=== PATIENT | male | born 1935 | race Caucasian/White ===

== ENCOUNTER 2018-08-27 13:45 | Inpatient (IN) ==
[2018-08-27] MEDS ORDERED: Pantoprazole Inj 40 MG Vial IV.PUSH ONE (14:13)
--- NOTE | 2018-08-27 14:19 | ED ---
HPI General Chief complaint: Chest Pain Stated complaint: respiratory Time Seen by Provider: 08/27/18 14:04 History of Present Illness HPI narrative: This is an 83-year-old male with history of coronary artery disease, GERD, diabetes, chronic kidney disease, mild COPD, presents for evaluation. He reports that for 1 month he has been having some dyspnea and chest tightness. He reports that symptoms are exertional. He was seen yesterday by his basin cleaner Dr. Quinones where he had a cardiac catheterization which revealed left main, triple-vessel disease. He reports that he had some indigestion and cough which developed last night. He reports over 2 days he has had black stool. He called his basin cleaner today and was sent here for further evaluation. Symptoms are moderate, worse with exertion, no relieving factors. Denies abdominal pain, bright red blood per rectum, nausea or vomiting. He takes aspirin and Brilinta on a daily basis. No other complaints at this time. Related Data Home Medications Medication Instructions Recorded Confirmed albuterol sulfate [ProAir HFA] 2 puff INHALATION Q4-6H PRN 08/26/18 08/27/18 amlodipine 2.5 mg PO DAILY 08/26/18 08/27/18 aspirin 81 mg PO DAILY 08/26/18 08/27/18 isosorbide mononitrate 60 mg PO DAILY 08/26/18 08/27/18 metoprolol tartrate 50 mg PO BID 08/26/18 08/27/18 nitroglycerin 0.4 mg SUBLINGUAL Q5-15M PRN 08/26/18 08/27/18 pantoprazole 40 mg PO DAILY 08/26/18 08/27/18 rosuvastatin 40 mg PO DAILY 08/26/18 08/27/18 tamsulosin 0.8 mg PO DAILY 08/26/18 08/27/18 ticagrelor [Brilinta] 90 mg PO BID 08/26/18 08/27/18 Allergies Allergy/AdvReac Type Severity Reaction Status Date / Time No Known Allergies Allergy Verified 08/27/18 14:04 Review of Systems ROS: all other systems reviewed are negative [facility] Medical History Medical History Anemia (Acute) Franco esophagus (Acute) Basal cell carcinoma (Acute) CAD (coronary artery disease) (Acute) CKD (chronic kidney disease), stage IV (Acute) Cubital tunnel syndrome (Acute) Diabetes (Acute) Enlarged prostate (Acute) GERD (gastroesophageal reflux disease) (Acute) HTN (hypertension) (Acute) History of kidney stones (Acute) History of stroke (Acute) PAD (peripheral artery disease) (Acute) Peripheral neuropathy (Acute) RBBB (Acute) Surgical History Surgical History S/P cardiac cath (Acute) H/O endarterectomy (Acute) History of cataract surgery (Acute) S/P CABG x 5 (Acute) Social History Social History Substance History: No History of Abuse Second Hand Smoke Exposure: No Smoking Status: Former smoker How Often Do You Have a Drink Containing Alcohol: 2 to 4 times a month Recent Travel in [facility] within the Last 8 Weeks: No Recent Out of Country Travel within the Last 8 Weeks: No Immunization History Tetanus Immunization: <5 Years Exam Narrative Exam Narrative: GENERAL: Well-developed well-nourished male no acute distress SKIN: Warm and dry. HEAD: Atraumatic. Normocephalic. EYES: Pupils equal and round. No scleral icterus. No injection or drainage. ENT: No nasal bleeding or discharge. Mucous membranes pink and moist. NECK: Trachea midline. No JVD. CARDIOVASCULAR: Regular rate and rhythm. No murmur appreciated. RESPIRATORY: No accessory muscle use. Clear to auscultation. Breath sounds equal bilaterally. GASTROINTESTINAL: Abdomen soft, non-tender, nondistended. Hepatic and splenic margins not palpable. Rectal examination reveals dark brown Hemoccult positive stool. MUSCULOSKELETAL: No obvious deformities. No clubbing. No cyanosis. No edema. NEUROLOGICAL: Awake and alert. No obvious cranial nerve deficits. Motor grossly within normal limits. Normal speech. PSYCHIATRIC: Appropriate mood and affect; insight and judgment normal. Procedures Hemaprompt Stool Procedural Steps Taken: specimen placed in appropriate test area, developer placed on specimen and control areas and controls appropriately positive and negative Hemaprompt Stool Result: positive Course Initial Documented Vital Signs Temperature 97.2 F L 08/27/18 13:53 Pulse Rate 83 08/27/18 13:53 Respiratory Rate 29 H 08/27/18 13:53 Blood Pressure 144/63 H 08/27/18 13:53 Pulse Oximetry 97 08/27/18 13:53 Last Documented Vital Signs Temperature 97.9 F 08/29/18 04:00 Pulse Rate 60 08/29/18 06:00 Respiratory Rate 16 08/29/18 06:00 Blood Pressure 120/59 L 08/29/18 06:00 Pulse Oximetry 100 08/29/18 06:00 Medical Decision Making REZA Attestation REZA supervised visit: Yes Attestation: I, Dr. Silverio, have reviewed the advance practice practitioner's documentation and am in agreement, met with the patient face to face, made the diagnosis, and the medical decision making was done by me. *My assessment and Findings: Patient is an 83-year-old male, past medical history significant for CKD and coronary artery disease with cardiac cath yesterday which showed triple-vessel disease, who presents with complaint of chest pain. He appears well on arrival but EKG does show deep inverted T waves in the anterior leads which is new and is concerning for acute ischemia versus [facility] (thus he should not have a stress test). Troponin is elevated. Patient does also complain of dark stools and Hemoccult was positive. We spoke with his basin cleaner and it was agreed that heparin should be held at this time. GI has been called but has not called back yet. Patient has been admitted to the resident service for further evaluation and management. MDM Narrative Medical decision making narrative: The patient was placed on ECG monitoring pulse oximetry. A 12-lead EKG was obtained revealing sinus rhythm, T wave inversions noted in the septal, anterior leads, no acute ST elevation. Lab work , chest x-ray ordered. The patient was given nitroglycerin, Protonix. Lab work reviewed, hemoglobin is 9.5 which is decreased from yesterday when it was 9.9. Troponin is elevated at 1.39. BNP is elevated greater than 600. The patient has been chest pain-free during his hospital stay and therefore nitroglycerin was not administered. Discussed with the patient's basin cleaner Dr. Quinones who will consult on the patient. Gastroenterology will also be called in regards to the GI bleed. The patient will be admitted to the resident team. The senior talent management consultant on-call, Dr. Rossi, was paged twice but he never called back. Medical Screen Exam Complete: Yes Emergency Medical Condition: Yes Differential Diagnosis Differential Diagnosis: Unstable angina, acute coronary syndrome, upper GI bleed , symptomatic anemia, pneumonia, pneumothorax, hemothorax Lab Data Result diagrams: 08/29/18 03:54 08/29/18 03:54 Lab Results 08/27/18 08/27/18 08/27/18 Range/Units 14:19 14:19 14:19 WBC 7.6 (4.0-11.0) th/mm3 RBC 2.95 L (4.50-5.90) mil/mm3 Hgb 9.5 L (13.0-17.0) gm/dL Hct 26.6 L (39.0-51.0) % MCV 90.2 (80.0-100.0) fL MCH 32.1 (27.0-34.0) pg MCHC 35.6 (32.0-36.0) % RDW 15.2 (11.6-17.2) % Plt Count 229 (150-450) th/mm3 MPV 7.7 (7.0-11.0) fL Neut % (Auto) 80.3 H (16.0-70.0) % Lymph % (Auto) 10.4 (9.0-44.0) % [place] % (Auto) 6.9 (0.0-8.0) % Eos % (Auto) 1.5 (0.0-4.0) % Baso % (Auto) 0.9 (0.0-2.0) % Neut # (Auto) 6.1 (1.8-7.7) th/mm3 Lymph # (Auto) 0.8 L (1.0-4.8) th/mm3 [place] # (Auto) 0.5 (0.0-0.9) th/mm3 Eos # (Auto) 0.1 (0.0-0.4) th/mm3 Baso # (Auto) 0.1 (0.0-0.2) th/mm3 WBC Differential . Differential Comment Auto diff final PT (9.8-11.6) sec INR Ratio APTT (23.4-31.7) sec Puncture Site Patient Temperature O2 Saturation (90-100) % ABG pH (7.380-7.420) ABG pCO2 (38-42) mmHg ABG pO2 (61-120) mmHG ABG HCO3 (22-26) mmol/L ABG O2 Content (12.0-20.0) Vol % ABG Base Excess (-2-2) mmol/L ABG Methemoglobin (0-2) % Frankie Test Hemoglobin (12.0-16.0) G/DL Carboxyhemoglobin (0-4) % O2 Delivery Device Liter Flow L/M Inspired O2 % Critical Value Sodium 142 (136-145) meq/L Potassium 4.1 (3.5-5.1) meq/L Chloride 106 (98-107) meq/L Carbon Dioxide 27.0 (21.0-32.0) meq/L Anion Gap 9 (5-15) meq/L BUN 29 H (7-18) mg/dL Creatinine 2.11 H (0.60-1.30) mg/dL Estimated GFR 30 L (>89) mL/min POC Glucose (68-110) mg/dl Random Glucose 123 H (74-106) mg/dL Calcium 9.1 (8.5-10.1) mg/dL Magnesium 2.0 (1.5-2.5) mg/dL Total Bilirubin 0.6 (0.2-1.0) mg/dL AST 20 (15-37) U/L ALT 20 (12-78) U/L Alkaline Phosphatase 76 (45-117) U/L Total Creatine Kinase 92 (39-308) U/L Troponin I 1.39 H* (0.02-0.05) ng/mL B-Natriuretic Peptide 680 H (0-100) pg/mL Total Protein 6.7 (6.4-8.2) g/dL Albumin 3.3 L (3.4-5.0) g/dL Blood Type Blood Type Recheck Antibody Screen 08/27/18 08/27/18 08/27/18 Range/Units 14:19 14:19 14:19 WBC (4.0-11.0) th/mm3 RBC (4.50-5.90) mil/mm3 Hgb (13.0-17.0) gm/dL Hct (39.0-51.0) % MCV (80.0-100.0) fL MCH (27.0-34.0) pg MCHC (32.0-36.0) % RDW (11.6-17.2) % Plt Count (150-450) th/mm3 MPV (7.0-11.0) fL Neut % (Auto) (16.0-70.0) % Lymph % (Auto) (9.0-44.0) % [place] % (Auto) (0.0-8.0) % Eos % (Auto) (0.0-4.0) % Baso % (Auto) (0.0-2.0) % Neut # (Auto) (1.8-7.7) th/mm3 Lymph # (Auto) (1.0-4.8) th/mm3 [place] # (Auto) (0.0-0.9) th/mm3 Eos # (Auto) (0.0-0.4) th/mm3 Baso # (Auto) (0.0-0.2) th/mm3 WBC Differential Differential Comment PT 10.4 (9.8-11.6) sec INR 1.0 Ratio APTT 27.8 (23.4-31.7) sec Puncture Site Patient Temperature O2 Saturation (90-100) % ABG pH (7.380-7.420) ABG pCO2 (38-42) mmHg ABG pO2 (61-120) mmHG ABG HCO3 (22-26) mmol/L ABG O2 Content (12.0-20.0) Vol % ABG Base Excess (-2-2) mmol/L ABG Methemoglobin (0-2) % Frankie Test Hemoglobin (12.0-16.0) G/DL Carboxyhemoglobin (0-4) % O2 Delivery Device Liter Flow L/M Inspired O2 % Critical Value Sodium (136-145) meq/L Potassium (3.5-5.1) meq/L Chloride (98-107) meq/L Carbon Dioxide (21.0-32.0) meq/L Anion Gap (5-15) meq/L BUN (7-18) mg/dL Creatinine (0.60-1.30) mg/dL Estimated GFR (>89) mL/min POC Glucose (68-110) mg/dl Random Glucose (74-106) mg/dL Calcium (8.5-10.1) mg/dL Magnesium Cancelled (1.5-2.5) mg/dL Total Bilirubin (0.2-1.0) mg/dL AST (15-37) U/L ALT (12-78) U/L Alkaline Phosphatase (45-117) U/L Total Creatine Kinase (39-308) U/L Troponin I (0.02-0.05) ng/mL B-Natriuretic Peptide (0-100) pg/mL Total Protein (6.4-8.2) g/dL Albumin (3.4-5.0) g/dL Blood Type O Positive Blood Type Recheck Not needed Antibody Screen Negative 08/27/18 08/27/18 08/28/18 Range/Units 21:36 21:36 01:41 WBC (4.0-11.0) th/mm3 RBC (4.50-5.90) mil/mm3 Hgb 9.0 L (13.0-17.0) gm/dL Hct 26.2 L (39.0-51.0) % MCV (80.0-100.0) fL MCH (27.0-34.0) pg MCHC (32.0-36.0) % RDW (11.6-17.2) % Plt Count (150-450) th/mm3 MPV (7.0-11.0) fL Neut % (Auto) (16.0-70.0) % Lymph % (Auto) (9.0-44.0) % [place] % (Auto) (0.0-8.0) % Eos % (Auto) (0.0-4.0) % Baso % (Auto) (0.0-2.0) % Neut # (Auto) (1.8-7.7) th/mm3 Lymph # (Auto) (1.0-4.8) th/mm3 [place] # (Auto) (0.0-0.9) th/mm3 Eos # (Auto) (0.0-0.4) th/mm3 Baso # (Auto) (0.0-0.2) th/mm3 WBC Differential Differential Comment PT (9.8-11.6) sec INR Ratio APTT (23.4-31.7) sec Puncture Site Patient Temperature O2 Saturation (90-100) % ABG pH (7.380-7.420) ABG pCO2 (38-42) mmHg ABG pO2 (61-120) mmHG ABG HCO3 (22-26) mmol/L ABG O2 Content (12.0-20.0) Vol % ABG Base Excess (-2-2) mmol/L ABG Methemoglobin (0-2) % Frankie Test Hemoglobin (12.0-16.0) G/DL Carboxyhemoglobin (0-4) % O2 Delivery Device Liter Flow L/M Inspired O2 % Critical Value Sodium (136-145) meq/L Potassium (3.5-5.1) meq/L Chloride (98-107) meq/L Carbon Dioxide (21.0-32.0) meq/L Anion Gap (5-15) meq/L BUN (7-18) mg/dL Creatinine (0.60-1.30) mg/dL Estimated GFR (>89) mL/min POC Glucose 141 H (68-110) mg/dl Random Glucose (74-106) mg/dL Calcium (8.5-10.1) mg/dL Magnesium (1.5-2.5) mg/dL Total Bilirubin (0.2-1.0) mg/dL AST (15-37) U/L ALT (12-78) U/L Alkaline Phosphatase (45-117) U/L Total Creatine Kinase (39-308) U/L Troponin I 1.15 H* (0.02-0.05) ng/mL B-Natriuretic Peptide (0-100) pg/mL Total Protein (6.4-8.2) g/dL Albumin (3.4-5.0) g/dL Blood Type Blood Type Recheck Antibody Screen 08/28/18 08/28/18 08/28/18 Range/Units 02:51 04:24 04:24 WBC 7.7 (4.0-11.0) th/mm3 RBC 3.15 L (4.50-5.90) mil/mm3 Hgb 9.8 L (13.0-17.0) gm/dL Hct 28.4 L (39.0-51.0) % MCV 90.1 (80.0-100.0) fL MCH 31.2 (27.0-34.0) pg MCHC 34.6 (32.0-36.0) % RDW 15.6 (11.6-17.2) % Plt Count 226 (150-450) th/mm3 MPV 7.3 (7.0-11.0) fL Neut % (Auto) 89.9 H (16.0-70.0) % Lymph % (Auto) 5.5 L (9.0-44.0) % [place] % (Auto) 3.5 (0.0-8.0) % Eos % (Auto) 0.6 (0.0-4.0) % Baso % (Auto) 0.5 (0.0-2.0) % Neut # (Auto) 7.0 (1.8-7.7) th/mm3 Lymph # (Auto) 0.4 L (1.0-4.8) th/mm3 [place] # (Auto) 0.3 (0.0-0.9) th/mm3 Eos # (Auto) 0.0 (0.0-0.4) th/mm3 Baso # (Auto) 0.0 (0.0-0.2) th/mm3 WBC Differential . Differential Comment Auto diff final PT (9.8-11.6) sec INR Ratio APTT (23.4-31.7) sec Puncture Site Right radial Patient Temperature 98.6 O2 Saturation 90 (90-100) % ABG pH 7.31 L (7.380-7.420) ABG pCO2 46 H (38-42) mmHg ABG pO2 74 (61-120) mmHG ABG HCO3 22 (22-26) mmol/L ABG O2 Content 15.8 (12.0-20.0) Vol % ABG Base Excess -3.2 L (-2-2) mmol/L ABG Methemoglobin 1.5 (0-2) % Frankie Test Present Hemoglobin 12.4 (12.0-16.0) G/DL Carboxyhemoglobin 1.1 (0-4) % O2 Delivery Device Sm Liter Flow 10.00 L/M Inspired O2 55 % Critical Value No Sodium (136-145) meq/L Potassium (3.5-5.1) meq/L Chloride (98-107) meq/L Carbon Dioxide (21.0-32.0) meq/L Anion Gap (5-15) meq/L BUN (7-18) mg/dL Creatinine (0.60-1.30) mg/dL Estimated GFR (>89) mL/min POC Glucose (68-110) mg/dl Random Glucose (74-106) mg/dL Calcium (8.5-10.1) mg/dL Magnesium (1.5-2.5) mg/dL Total Bilirubin (0.2-1.0) mg/dL AST (15-37) U/L ALT (12-78) U/L Alkaline Phosphatase (45-117) U/L Total Creatine Kinase (39-308) U/L Troponin I 1.93 H* (0.02-0.05) ng/mL B-Natriuretic Peptide (0-100) pg/mL Total Protein (6.4-8.2) g/dL Albumin (3.4-5.0) g/dL Blood Type Blood Type Recheck Antibody Screen 08/28/18 08/28/18 08/28/18 Range/Units 04:24 04:24 17:33 WBC (4.0-11.0) th/mm3 RBC (4.50-5.90) mil/mm3 Hgb (13.0-17.0) gm/dL Hct (39.0-51.0) % MCV (80.0-100.0) fL MCH (27.0-34.0) pg MCHC (32.0-36.0) % RDW (11.6-17.2) % Plt Count (150-450) th/mm3 MPV (7.0-11.0) fL Neut % (Auto) (16.0-70.0) % Lymph % (Auto) (9.0-44.0) % [place] % (Auto) (0.0-8.0) % Eos % (Auto) (0.0-4.0) % Baso % (Auto) (0.0-2.0) % Neut # (Auto) (1.8-7.7) th/mm3 Lymph # (Auto) (1.0-4.8) th/mm3 [place] # (Auto) (0.0-0.9) th/mm3 Eos # (Auto) (0.0-0.4) th/mm3 Baso # (Auto) (0.0-0.2) th/mm3 WBC Differential Differential Comment PT 10.4 (9.8-11.6) sec INR 1.0 Ratio APTT (23.4-31.7) sec Puncture Site Patient Temperature O2 Saturation (90-100) % ABG pH (7.380-7.420) ABG pCO2 (38-42) mmHg ABG pO2 (61-120) mmHG ABG HCO3 (22-26) mmol/L ABG O2 Content (12.0-20.0) Vol % ABG Base Excess (-2-2) mmol/L ABG Methemoglobin (0-2) % Frankie Test Hemoglobin (12.0-16.0) G/DL Carboxyhemoglobin (0-4) % O2 Delivery Device Liter Flow L/M Inspired O2 % Critical Value Sodium 141 (136-145) meq/L Potassium 4.7 (3.5-5.1) meq/L Chloride 106 (98-107) meq/L Carbon Dioxide 27.1 (21.0-32.0) meq/L Anion Gap 8 (5-15) meq/L BUN 30 H (7-18) mg/dL Creatinine 2.29 H (0.60-1.30) mg/dL Estimated GFR 27 L (>89) mL/min POC Glucose 111 H (68-110) mg/dl Random Glucose 190 H (74-106) mg/dL Calcium 8.9 (8.5-10.1) mg/dL Magnesium (1.5-2.5) mg/dL Total Bilirubin 0.7 (0.2-1.0) mg/dL AST 26 (15-37) U/L ALT 22 (12-78) U/L Alkaline Phosphatase 77 (45-117) U/L Total Creatine Kinase (39-308) U/L Troponin I (0.02-0.05) ng/mL B-Natriuretic Peptide (0-100) pg/mL Total Protein 6.9 (6.4-8.2) g/dL Albumin 3.4 (3.4-5.0) g/dL Blood Type Blood Type Recheck Antibody Screen 08/29/18 08/29/18 Range/Units 03:54 03:54 WBC 9.3 (4.0-11.0) th/mm3 RBC 2.63 L (4.50-5.90) mil/mm3 Hgb 8.2 L (13.0-17.0) gm/dL Hct 23.8 L (39.0-51.0) % MCV 90.5 (80.0-100.0) fL MCH 31.1 (27.0-34.0) pg MCHC 34.4 (32.0-36.0) % RDW 15.6 (11.6-17.2) % Plt Count 196 (150-450) th/mm3 MPV 7.8 (7.0-11.0) fL Neut % (Auto) 89.2 H (16.0-70.0) % Lymph % (Auto) 3.5 L (9.0-44.0) % [place] % (Auto) 6.7 (0.0-8.0) % Eos % (Auto) 0.4 (0.0-4.0) % Baso % (Auto) 0.2 (0.0-2.0) % Neut # (Auto) 8.3 H (1.8-7.7) th/mm3 Lymph # (Auto) 0.3 L (1.0-4.8) th/mm3 [place] # (Auto) 0.6 (0.0-0.9) th/mm3 Eos # (Auto) 0.0 (0.0-0.4) th/mm3 Baso # (Auto) 0.0 (0.0-0.2) th/mm3 WBC Differential . Differential Comment Auto diff final PT (9.8-11.6) sec INR Ratio APTT (23.4-31.7) sec Puncture Site Patient Temperature O2 Saturation (90-100) % ABG pH (7.380-7.420) ABG pCO2 (38-42) mmHg ABG pO2 (61-120) mmHG ABG HCO3 (22-26) mmol/L ABG O2 Content (12.0-20.0) Vol % ABG Base Excess (-2-2) mmol/L ABG Methemoglobin (0-2) % Frankie Test Hemoglobin (12.0-16.0) G/DL Carboxyhemoglobin (0-4) % O2 Delivery Device Liter Flow L/M Inspired O2 % Critical Value Sodium 143 (136-145) meq/L Potassium 4.0 (3.5-5.1) meq/L Chloride 109 H (98-107) meq/L Carbon Dioxide 24.7 (21.0-32.0) meq/L Anion Gap 9 (5-15) meq/L BUN 36 H (7-18) mg/dL Creatinine 2.26 H (0.60-1.30) mg/dL Estimated GFR 28 L (>89) mL/min POC Glucose (68-110) mg/dl Random Glucose 125 H (74-106) mg/dL Calcium 8.0 L D (8.5-10.1) mg/dL Magnesium (1.5-2.5) mg/dL Total Bilirubin (0.2-1.0) mg/dL AST (15-37) U/L ALT (12-78) U/L Alkaline Phosphatase (45-117) U/L Total Creatine Kinase 172 (39-308) U/L Troponin I (0.02-0.05) ng/mL B-Natriuretic Peptide (0-100) pg/mL Total Protein (6.4-8.2) g/dL Albumin (3.4-5.0) g/dL Blood Type Blood Type Recheck Antibody Screen Imaging Data Radiologist's impression: Chest X-Ray 08/27/18 14:13 CONCLUSION: Cardiomegaly and chronic appearing interstitial changes. No acute abnormality. Chest X-Ray 08/28/18 02:01 CONCLUSION: New bilateral alveolar opacities most characteristic of pulmonary edema. This may indicate congestive heart failure or fluid overload. Discharge Plan Discharge Disposition Patient Disposition: 30 Still Patient Discharge Condition Condition: Stable Discharge Details Diagnosis: Non-ST elevation VT (NSTEMI), GI bleed, Chronic kidney disease Physicians Team ED Provider: Radha Silverio ED Midlevel Provider: Jasiel Shields Primary Care Provider: Nickolas Bledsoe Attending Provider: Wu Garza Other Providers: Young Quinones ; Aroldo Livingston Jan Status ED Status: Left Department Discharge Information Discharge Date/Time: 08/27/18 18:30
--- NOTE | 2018-08-27 14:36 | XR ---
EXAM DATE: 08/27/2018 2:29 PM EST AGE/SEX: 83 years / Male INDICATIONS: Chest pain and shortness of breath. CLINICAL DATA: This is the patient's initial encounter. Patient reports that signs and symptoms have been present for 1 day and indicates a pain score of 9/10. MEDICAL/SURGICAL HISTORY: . Cardiac. . five way bypass. COMPARISON: No prior exams available for comparison. FINDINGS: The heart is mildly enlarged. The patient is post median sternotomy. There is no pneumothorax identif ied. There are chronic interstitial changes within the parenchyma. The bony structures are grossly in tact. CONCLUSION: Cardiomegaly and chronic appearing interstitial changes. No acute abnormality. Electronically signed by: Roberto Hogan MD 08/27/2018 2:35 PM EST
[2018-08-27 14:42] LABS: Baso # (Auto) 0.1 th/mm3 (0.0-0.2); Baso % (Auto) 0.9 % (0.0-2.0); Eos # (Auto) 0.1 th/mm3 (0.0-0.4); Eos % (Auto) 1.5 % (0.0-4.0); Hematocrit 26.6 % (39.0-51.0); Hemoglobin 9.5 gm/dL (13.0-17.0); Lymph # (Auto) 0.8 th/mm3 (1.0-4.8); Lymph % (Auto) 10.4 % (9.0-44.0); Mean Corpuscular HGB Conc 35.6 % (32.0-36.0); Mean Corpuscular Hemoglobin 32.1 pg (27.0-34.0); Mean Corpuscular Volume 90.2 fL (80.0-100.0); Mean Platelet Volume 7.7 fL (7.0-11.0); Mono # (Auto) 0.5 th/mm3 (0.0-0.9); Mono % (Auto) 6.9 % (0.0-8.0); Neut # (Auto) 6.1 th/mm3 (1.8-7.7); Neut % (Auto) 80.3 % (16.0-70.0); Platelet Count 229 th/mm3 (150-450); Red Blood Count 2.95 mil/mm3 (4.50-5.90); Red Cell Distribution Width 15.2 % (11.6-17.2); White Blood Count 7.6 th/mm3 (4.0-11.0)
[2018-08-27 15:01] LABS: Activated Partial Thrombo Time 27.8 sec (23.4-31.7); Prothrombin Time 10.4 sec (9.8-11.6)
[2018-08-27 15:13] LABS: Albumin 3.3 g/dL (3.4-5.0); Anion Gap 9 meq/L (5-15); Aspartate Aminotransferase 20 U/L (15-37); Blood Urea Nitrogen 29 mg/dL (7-18); Calcium 9.1 mg/dL (8.5-10.1); Chloride 106 meq/L (98-107); Glomerular Filtration Rate 30 mL/min (>89); Glucose,Random 123 mg/dL (74-106); Potassium 4.1 meq/L (3.5-5.1); Sodium 142 meq/L (136-145)
[2018-08-27 15:19] LABS: Alanine Aminotransferase 20 U/L (12-78); Alkaline Phosphatase 76 U/L (45-117); Total Protein 6.7 g/dL (6.4-8.2)
[2018-08-27 15:34] LABS: Creatine Kinase 92 U/L (39-308); Troponin I 1.39 ng/mL (0.02-0.05)
--- NOTE | 2018-08-27 16:31 | P.HPFP ---
History of Present Illness Primary Care Physician: Nickolas Bledsoe MD <DenysmonicaWu Khadra - 08/27/18 21:00> Nickolas Bledsoe MD <Sondra Gordillo - 08/27/18 16:31> Chief Complaint: GI bleed <Sondra Gordillo - 08/27/18 16:31> History of Present Illness: 83 YO male followed by Dr Quinones from cardiology with PMHx HTN, carotid artery dz, GERD with Franco's, DM with peripheral neuropathy, BPH, PAD, angina, arthritis, CVD s/p heart cath x1 day and CKD stage 4, tinnitus, and recent COPD. Has had 1 month CP with dyspnea and sputum production. Pt had a heart cath yesterday and did not get stents yesterday due to bleeding and elevation of creatinine. Pt has 2 day Hx of black stools but no BRBPR. Pt is not taking Iron. Denies loose stools but has constipation. Has Hx of EGD for Franco's a few years ago. Pt is on Brillinta and took last dose last night. Hgb was 9.5 today. Pt has no CP when sitting. Pt feels more congested when breathing in; does not report trouble getting air out. There is radiation to left arm for some time but the frequency and duration of sxs is getting greater. Pain is not increasing. SL Nitro relieves the pain and has taken it 3x today. Denies being lightheaded except when standing up fast. His anxiety has been increased with these sxs. 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 <Sondra Gordillo - 08/27/18 17:25> - Diagnosis (1) Unstable angina (2) GI bleed (3) Hypertension (4) Chronic kidney disease (5) History of CVA (cerebrovascular accident) (6) Franco esophagus (7) GERD (gastroesophageal reflux disease) (8) Diabetes (9) Enlarged prostate (10) Anemia (11) Hx of CABG <Wu Garza Romaine 08/27/18 21:00> (1) Unstable angina (2) GI bleed (3) Hypertension (4) Chronic kidney disease (5) History of CVA (cerebrovascular accident) (6) Franco esophagus (7) GERD (gastroesophageal reflux disease) (8) Diabetes (9) Enlarged prostate (10) Anemia (11) Hx of CABG <EstebanAmrita castellanosbharat Carter 08/27/18 20:20> Inpatient Certification: I certify that the inpatient services were ordered in accordance with Medicare regulations governing the order. This includes certification that hospital inpatient services are reasonable and necessary and in the case of services not specified as inpatient-only under 42 CFR 419.22(n), that they are appropriately provided as inpatient services in accordance to with the 2-midnight benchmark under 43 CFR 412.3(e) <MomoleelaWu anderson Khadra 08/27/18 21:00> Review of Systems All other systems reviewed negative except as stated in HPI <Sondra Gordillo 08/27/18 17:25> PMFSH - History History Provided By: Patient <Jean Gordillowm Gavin 08/27/18 16:31> - Medical History Medical History: Medical History (Last Reviewed 08/27/18 @ 14:06 by Mali Morelos) Anemia Franco esophagus Basal cell carcinoma CAD (coronary artery disease) CKD (chronic kidney disease), stage IV Cubital tunnel syndrome Diabetes Enlarged prostate GERD (gastroesophageal reflux disease) HTN (hypertension) History of kidney stones History of stroke PAD (peripheral artery disease) Peripheral neuropathy RBBB <Wu Garza Khadra - 08/27/18 21:00> Medical History (Last Reviewed 08/27/18 @ 14:06 by Mali Morelos) Anemia Franco esophagus Basal cell carcinoma CAD (coronary artery disease) CKD (chronic kidney disease), stage IV Cubital tunnel syndrome Diabetes Enlarged prostate GERD (gastroesophageal reflux disease) HTN (hypertension) History of kidney stones History of stroke PAD (peripheral artery disease) Peripheral neuropathy RBBB <RandSondrawm Gavin 08/27/18 16:31> - Surgical History Surgical History: Surgical History (Last Updated 08/27/18 @ 14:12 by Mali Morelos) S/P cardiac cath H/O endarterectomy History of cataract surgery S/P CABG x 5 <Wu Garza - 08/27/18 21:00> Surgical History (Last Updated 08/27/18 @ 14:12 by Mali Morelos) S/P cardiac cath H/O endarterectomy History of cataract surgery S/P CABG x 5 <Sondra Gordillo 08/27/18 16:31> - Social History I have reviewed the patient's Social History: Yes <Sondra Gordillo 17:25> - Tobacco History Second Hand Smoke Exposure: No <Sondra Gordillo 08/27/18 16:31> Tobacco Use In Past 30 Days: No <Sondra Gordillo 08/27/18 16:31> Smoking Status: Former smoker <Sondra Gordillo 08/27/18 16:31> - Alcohol History How Often Do You Have a Drink Containing Alcohol: 2 to 4 times a month < Sondra Gordillo 08/27/18 16:31> - Substance Use History Substance History: No History of Abuse <Sondra Gordillo 08/27/18 16:31> - Travel History Recent Travel in the [facility] Within the Last 8 Weeks: No <Sondra Gordillo 16:31> Recent Travel Out of the Country Within the Last 8 Weeks: No <Sondra Gordillo 08/27/18 16:31> - Immunization History Tetanus Immunization: <5 Years <Sondra Gordillo 08/27/18 16:31> Medications and Allergies Allergies Allergy/AdvReac Type Severity Reaction Status Date / Time No Known Allergies Allergy Verified 08/27/18 14:04 <Wu Garza - 08/27/18 21:00> Home Medications Medication Instructions Recorded Confirmed Type albuterol sulfate [ProAir HFA] 2 puff INHALATION Q4-6H PRN 08/26/18 08/27/18 History amlodipine 2.5 mg PO DAILY 08/26/18 08/27/18 History aspirin 81 mg PO DAILY 08/26/18 08/27/18 History isosorbide mononitrate 60 mg PO DAILY 08/26/18 08/27/18 History metoprolol tartrate 50 mg PO BID 08/26/18 08/27/18 History nitroglycerin 0.4 mg SUBLINGUAL Q5-15M PRN 08/26/18 08/27/18 History pantoprazole 40 mg PO DAILY 08/26/18 08/27/18 History rosuvastatin 40 mg PO DAILY 08/26/18 08/27/18 History tamsulosin 0.8 mg PO DAILY 08/26/18 08/27/18 History ticagrelor [Brilinta] 90 mg PO BID 08/26/18 08/27/18 History <Wu Garza K - 08/27/18 21:00> Active Medications: Active Medications Acetaminophen (Tylenol) 650 mg PO Q4H PRN PRN Reason: Temp > 100.4 Al Hydroxide/Mg Hydroxide (Milk Of Magnesia Liq) 30 ml PO Q12H PRN PRN Reason: Mild Constipation Albuterol (Ventolin Hfa Inh) 2 puff INH Q4H PRN PRN Reason: Shortness Of Breath Amlodipine Besylate (Norvasc) 2.5 mg PO DAILY [facility] Last Admin: 08/27/18 18:04 Dose: 2.5 mg Aspirin (Aspirin Chew) 81 mg PO DAILY [facility] Atorvastatin Calcium (Lipitor) 80 mg PO DAILY [facility] Bisacodyl (Dulcolax Supp) 10 mg RECTAL DAILY PRN PRN Reason: SEVERE CONSITIPATION Dextrose (D50w Vial) 50 ml IV.PUSH UNSCH PRN PRN Reason: PER HYPOGLYCEMIA PROTOCOL Glucagon (Glucagon Inj) 1 mg OTHER PRN PRN PRN Reason: for Hypoglycemia Protocol Insulin Aspart (Novolog Insulin Correctional Sugar Inj) 0 unit SQ ACHS AND 3AM ROX[facility]NE; Protocol Isosorbide Mononitrate (Imdur) 60 mg PO DAILY [facility] Lactulose (Lactulose Liq) 30 ml PO DAILY PRN PRN Reason: SEVERE CONSITIPATION Metoprolol Tartrate (Lopressor) 50 mg PO BID [facility] Miscellaneous (Pill Splitter) 1 each OTHER UNSCH PRN PRN Reason: SEE LABEL COMMENTS Nitroglycerin (Nitrostat Sl) 0.4 mg SL Q5M PRN PRN Reason: Chest Pain Ondansetron HCl (Zofran Inj) 4 mg IV.PUSH Q6H PRN PRN Reason: NAUSEA OR VOMITING Pantoprazole Sodium (Protonix) 40 mg PO DAILY [facility] Sennosides (Senokot) 17.2 mg PO Q12H PRN PRN Reason: Moderate Constipation Sodium Chloride (Ns Flush) 2 ml IV.FLUSH UNSCH PRN PRN Reason: FLUSH AFTER USING IV ACCESS Last Admin: 08/27/18 14:52 Dose: 2 ml Tamsulosin HCl (Flomax) 0.8 mg PO DAILY [facility] Ticagrelor (Brilinta) 90 mg PO BID [facility] <Wu Garza - 08/27/18 21:00> Active Medications Sodium Chloride (Ns Flush) 2 ml IV.FLUSH UNSCH PRN PRN Reason: FLUSH AFTER USING IV ACCESS Last Admin: 08/27/18 14:52 Dose: 2 ml <Sondra Gordillo 08/27/18 16:31> Exam Vital signs: Vital Signs 08/27/18 13:53 08/27/18 14:04 08/27/18 14:16 Temperature 97.2 F L Pulse Rate 83 87 69 Respiratory Rate 29 H 21 Blood Pressure 144/63 H 146/69 H Pulse Oximetry 97 98 98 08/27/18 15:58 08/27/18 18:01 08/27/18 18:41 Temperature Pulse Rate 77 93 H 77 Respiratory Rate 21 21 18 Blood Pressure 119/76 144/64 H 137/66 Pulse Oximetry 95 97 97 Intake & Output 08/27/18 08/27/18 08/28/18 06:59 18:59 06:59 Weight 111.13 kg <Wu Garza - 08/27/18 21:00> Vital Signs 08/27/18 13:53 08/27/18 14:04 08/27/18 14:16 Temperature 97.2 F L Pulse Rate 83 87 69 Respiratory Rate 29 H 21 Blood Pressure 144/63 H 146/69 H Pulse Oximetry 97 98 98 08/27/18 15:58 Temperature Pulse Rate 77 Respiratory Rate 21 Blood Pressure 119/76 Pulse Oximetry 95 Intake & Output 08/26/18 08/27/18 08/27/18 18:59 06:59 18:59 Weight 111.13 kg <Sondra Gordillo - 08/27/18 16:31> Narrative: GENERAL: Pleasant elderly male resting comfortably up in hospital chair in no acute distress. SKIN: No rashes. Cool and dry. HEAD: Atraumatic. Normocephalic. EYES: No scleral icterus. No injection or drainage. ENT: Nose without bleeding, purulent drainage. CARDIOVASCULAR: Regular rate and rhythm. No murmur appreciated. No gallops or rubs. RESPIRATORY: Clear to auscultation. Breath sounds equal bilaterally. No wheezes , rales, or rhonchi. ABDOMEN: Abdomen soft, non-tender, without guarding. Diastasis recti. Positive bowel sounds. Belching intermittently. MUSCULOSKELETAL: Extremities without clubbing, cyanosis, or edema. No calf tenderness. NEUROLOGICAL: Awake and alert. Motor and sensory grossly within normal limits. Moves all extremities without difficulty. Normal speech. <Sondra Gordillo - 08/27/18 17:25> Results - Labs Result diagrams: 08/27/18 14:19 08/27/18 14:19 <Wu Garza - 08/27/18 21:00> Abnormal lab results 08/27/18 08/27/18 08/27/18 Range/Units 14:19 14:19 14:19 RBC 2.95 L (4.50-5.90) mil/mm3 Hgb 9.5 L (13.0-17.0) gm/dL Hct 26.6 L (39.0-51.0) % Neut % (Auto) 80.3 H (16.0-70.0) % Lymph # (Auto) 0.8 L (1.0-4.8) th/mm3 BUN 29 H (7-18) mg/dL Creatinine 2.11 H (0.60-1.30) mg/dL Estimated GFR 30 L (>89) mL/min Random Glucose 123 H (74-106) mg/dL Troponin I 1.39 H* (0.02-0.05) ng/mL B-Natriuretic Peptide 680 H (0-100) pg/mL Albumin 3.3 L (3.4-5.0) g/dL Short CBC 08/27/18 Range/Units 14:19 WBC 7.6 (4.0-11.0) th/mm3 Hgb 9.5 L (13.0-17.0) gm/dL Hct 26.6 L (39.0-51.0) % Plt Count 229 (150-450) th/mm3 [facility] 08/27/18 14:19 Sodium 142 Potassium 4.1 Chloride 106 Carbon Dioxide 27.0 BUN 29 H Creatinine 2.11 H Calcium 9.1 Cardiac Enzymes 08/27/18 Range/Units 14:19 Total Creatine Kinase 92 (39-308) U/L Troponin I 1.39 H* (0.02-0.05) ng/mL Liver Function 08/27/18 Range/Units 14:19 Total Bilirubin 0.6 (0.2-1.0) mg/dL AST 20 (15-37) U/L ALT 20 (12-78) U/L Alkaline Phosphatase 76 (45-117) U/L Albumin 3.3 L (3.4-5.0) g/dL <Wu Garza - 08/27/18 21:00> Abnormal lab results 08/27/18 08/27/18 08/27/18 Range/Units 14:19 14:19 14:19 RBC 2.95 L (4.50-5.90) mil/mm3 Hgb 9.5 L (13.0-17.0) gm/dL Hct 26.6 L (39.0-51.0) % Neut % (Auto) 80.3 H (16.0-70.0) % Lymph # (Auto) 0.8 L (1.0-4.8) th/mm3 BUN 29 H (7-18) mg/dL Creatinine 2.11 H (0.60-1.30) mg/dL Estimated GFR 30 L (>89) mL/min Random Glucose 123 H (74-106) mg/dL Troponin I 1.39 H* (0.02-0.05) ng/mL B-Natriuretic Peptide 680 H (0-100) pg/mL Albumin 3.3 L (3.4-5.0) g/dL Short CBC 08/27/18 Range/Units 14:19 WBC 7.6 (4.0-11.0) th/mm3 Hgb 9.5 L (13.0-17.0) gm/dL Hct 26.6 L (39.0-51.0) % Plt Count 229 (150-450) th/mm3 BMP 08/27/18 14:19 Sodium 142 Potassium 4.1 Chloride 106 Carbon Dioxide 27.0 BUN 29 H Creatinine 2.11 H Calcium 9.1 Cardiac Enzymes 08/27/18 Range/Units 14:19 Total Creatine Kinase 92 (39-308) U/L Troponin I 1.39 H* (0.02-0.05) ng/mL Liver Function 08/27/18 Range/Units 14:19 Total Bilirubin 0.6 (0.2-1.0) mg/dL AST 20 (15-37) U/L ALT 20 (12-78) U/L Alkaline Phosphatase 76 (45-117) U/L Albumin 3.3 L (3.4-5.0) g/dL <Sondra Gordillo - 08/27/18 16:31> - Imaging Impressions Chest X-Ray 08/27/18 14:13 CONCLUSION: Cardiomegaly and chronic appearing interstitial changes. No acute abnormality. <Wu Garza - 08/27/18 21:00> Impressions Chest X-Ray 08/27/18 14:13 CONCLUSION: Cardiomegaly and chronic appearing interstitial changes. No acute abnormality. <Sondra Gordillo - 08/27/18 16:31> Caprini VTE Risk Assessment Caprini VTE Risk Assessment: Moderate/High Risk (score >= 2) <Sondra Gordillo - 08/27/18 17:25> Caprini Risk Assessment Model: Point Value = 1 Point Value = 2 Point Value = 3 Point Value = 5 Age 41-60 Minor surgery BMI > 25 kg/m2 Swollen legs Varicose veins or History of unexplained or recurrent spontaneous Oral contraceptives or hormone replacement Sepsis (< 1 month) Serious lung disease, including pneumonia (< 1 month) Abnormal pulmonary function Acute myocardial infarction Congestive heart failure (< 1 month) History of inflammatory bowel disease Medical patient at bed rest Age 61-74 Arthroscopic surgery Major open surgery (> 45 min) Laparoscopic surgery (> 45 min) Malignancy Confined to bed (> 72 hours) Immobilizing plaster cast Central venous access Age >= 75 History of VTE Family history of VTE Factor V Leiden Prothrombin [id number] Lupus anticoagulant Anticardiolipin antibodies Elevated serum homocysteine Heparin-induced thrombocytopenia Other congenital or acquired thrombophilia Stroke (< 1 month) Elective arthroplasty Hip, pelvis, or leg fracture Acute spinal cord injury (< 1 month) <Wu Garza - 08/27/18 21:00> Point Value = 1 Point Value = 2 Point Value = 3 Point Value = 5 Age 41-60 Minor surgery BMI > 25 kg/m2 Swollen legs Varicose veins or History of unexplained or recurrent spontaneous Oral contraceptives or hormone replacement Sepsis (< 1 month) Serious lung disease, including pneumonia (< 1 month) Abnormal pulmonary function Acute myocardial infarction Congestive heart failure (< 1 month) History of inflammatory bowel disease Medical patient at bed rest Age 61-74 Arthroscopic surgery Major open surgery (> 45 min) Laparoscopic surgery (> 45 min) Malignancy Confined to bed (> 72 hours) Immobilizing plaster cast Central venous access Age >= 75 History of VTE Family history of VTE Factor V Leiden Prothrombin [id number] Lupus anticoagulant Anticardiolipin antibodies Elevated serum homocysteine Heparin-induced thrombocytopenia Other congenital or acquired thrombophilia Stroke (< 1 month) Elective arthroplasty Hip, pelvis, or leg fracture Acute spinal cord injury (< 1 month) <Sondra Gordillo - 08/27/18 16:31> Prophylaxis Regimen: Total Risk Factor Score Risk Level Prophylaxis Regimen 0-1 Low Early ambulation 2 Moderate Order ONE of the following: *Sequential Compression Device (SCD) *Heparin 5000 units SQ BID 3-4 Higher Order ONE of the following medications: *Heparin 5000 units SQ TID *Enoxaparin/Lovenox 40 mg SQ daily (WT < 150 kg, CrCl > 30 mL/min) *Enoxaparin/Lovenox 30 mg SQ daily (WT < 150 kg, CrCl > 10-29 mL/min) *Enoxaparin/Lovenox 30 mg SQ BID (WT < 150 kg, CrCl > 30 mL/min) AND/OR *Sequential Compression Device (SCD) 5 or more Highest Order ONE of the following medications: *Heparin 5000 units SQ TID (Preferred with Epidurals) *Enoxaparin/Lovenox 40 mg SQ daily (WT < 150 kg, CrCl > 30 mL/min) *Enoxaparin/Lovenox 30 mg SQ daily (WT < 150 kg, CrCl > 10-29 mL/min) *Enoxaparin/Lovenox 30 mg SQ BID (WT < 150 kg, CrCl > 30 mL/min) AND *Sequential Compression Device (SCD) <Wu Garza - 08/27/18 21:00> Total Risk Factor Score Risk Level Prophylaxis Regimen 0-1 Low Early ambulation 2 Moderate Order ONE of the following: *Sequential Compression Device (SCD) *Heparin 5000 units SQ BID 3-4 Higher Order ONE of the following medications: *Heparin 5000 units SQ TID *Enoxaparin/Lovenox 40 mg SQ daily (WT < 150 kg, CrCl > 30 mL/min) *Enoxaparin/Lovenox 30 mg SQ daily (WT < 150 kg, CrCl > 10-29 mL/min) *Enoxaparin/Lovenox 30 mg SQ BID (WT < 150 kg, CrCl > 30 mL/min) AND/OR *Sequential Compression Device (SCD) 5 or more Highest Order ONE of the following medications: *Heparin 5000 units SQ TID (Preferred with Epidurals) *Enoxaparin/Lovenox 40 mg SQ daily (WT < 150 kg, CrCl > 30 mL/min) *Enoxaparin/Lovenox 30 mg SQ daily (WT < 150 kg, CrCl > 10-29 mL/min) *Enoxaparin/Lovenox 30 mg SQ BID (WT < 150 kg, CrCl > 30 mL/min) AND *Sequential Compression Device (SCD) <Sondra Gordillo - 08/27/18 16:31> Assessment and Plan - Assessment (1) Unstable angina Code(s): I20.0 - Unstable angina Status: Acute (2) GI bleed Code(s): K92.2 - Gastrointestinal hemorrhage, unspecified Status: Acute (3) Hypertension Code(s): I10 - Essential (primary) hypertension Status: Acute (4) Chronic kidney disease Code(s): N18.9 - Chronic kidney disease, unspecified Status: Acute (5) History of CVA (cerebrovascular accident) Code(s): Z86.73 - Personal history of transient ischemic attack (TIA), and cerebral infarction without residual deficits Status: Acute (6) Franco esophagus Code(s): K22.70 - 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 Status: Acute (7) GERD (gastroesophageal reflux disease) Code(s): K21.9 - Gastro-esophageal reflux disease without esophagitis Status: Acute (8) Diabetes Code(s): E11.9 - Type 2 diabetes mellitus without complications Status: Acute (9) Enlarged prostate Code(s): N40.0 - Benign prostatic hyperplasia without lower urinary tract symptoms Status: Acute (10) Anemia Code(s): D64.9 - Anemia, unspecified Status: Acute (11) Hx of CABG Code(s): Z95.1 - Presence of aortocoronary bypass graft Status: Acute <Wu Garza - 08/27/18 21:00> (1) Unstable angina Code(s): I20.0 - Unstable angina Status: Acute Plan: Patient with a significant cardiac history s/p CABGx5 and recent cardiac catheterization procedure who has chest pain and shortness of breath. EKG showed a sinus rhythm with RBBB. -Consult Dr. Quinones, interventional cardiology appreciate recs -Trend troponin and EKG Q6H X 2 -Telemetry -Continue Brilinta 90 mg BID until cleared by cardiology to hold for GI procedure -Continue amlodipine 2.5mg daily -Continue aspirin 81 mg -Continue Isosorbide Mononitrate 60 mg PO daily -Continue nitroglycerin 0.4 mg SL Q5 min PRN -Continue metoprolol 50 mid BID (2) GI bleed Code(s): K92.2 - Gastrointestinal hemorrhage, unspecified Status: Acute Plan: Patient with a 3 day history of black stools. His hemoglobin is stable at 9.5. Patient reports that his hemoglobin has been in this range for some time. - Consult GI appreciate rec * N.p.o.-May advance to clear liquid diet if stable * Monitor hemoglobin and hematocrit * Monitor for active bleeding * Pantoprazole-PPI * Patient will need upper endoscopy-will require cardiac clearance * Anticoagulants as per attending and cardiology * Supportive care - Advanced diet to clear liquids - Will continue anticoagulant until cardiology has cleared the patient for EGD - Will transfuse patient if hemoglobin less than 7 or he becomes symptomatic (3) Hypertension Code(s): I10 - Essential (primary) hypertension Status: Acute Plan: Stable with current regimen. Continue home amlodipine and metoprolol. (4) Chronic kidney disease Code(s): N18.9 - Chronic kidney disease, unspecified Status: Acute Plan: Patient with known CKD. Creatinine @ 2.11 -PO intake for now. -Will continue to monitor -Avoid nephrotoxic medications (5) History of CVA (cerebrovascular accident) Code(s): Z86.73 - Personal history of transient ischemic attack (TIA), and cerebral infarction without residual deficits Status: Acute Plan: Patient has no neurological deficits from CVA in 2013. 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 Latham. (7) GERD (gastroesophageal reflux disease) Code(s): K21.9 - Gastro-esophageal reflux disease without esophagitis Status: Acute Plan: -Continue pantoprazole 40 mg daily (8) Diabetes Code(s): E11.9 - Type 2 diabetes mellitus without complications Status: Acute Plan: Patient is not on home medications based on home medication lists. He reports that he is a diabetic. -low dose sliding scale insulin (9) Enlarged prostate Code(s): N40.0 - Benign prostatic hyperplasia without lower urinary tract symptoms Status: Acute Plan: -Continue tamsulosin (10) Anemia Code(s): D64.9 - Anemia, unspecified Status: Acute Plan: patient has a history of anemia with hemoglobins around 9.0. -Monitor (11) Hx of CABG Code(s): Z95.1 - Presence of aortocoronary bypass graft Status: Acute Plan: CABGx5 2008 <Sondra Gordillo - 08/27/18 20:20> - Assessment and Plan Fluids: PO intake for now. Will monitor kidney function. Electrolytes: Will monitor and replete as needed. Nutrition: clear liquid diet <Sondra Gordillo - 08/27/18 20:36> - Attending Attestation The exam, history, and the medical decision-making described in the above note were completed with the assistance of the resident physician. I reviewed and agree with the findings presented. I attest that I had a [id number] encounter with the patient on the same day, and personally performed and documented my assessment and findings in the medical record. 83 yo M with known CAD and multiple comorbidities presents today with melena. He has known unstable angina over the past month and hard cardiac cath yesterday showing multivessel disease over already re-vascularized and stented coronaries. intervention was complicated and he was given time for his renal function to recover some before attempting intervention when melena noted today. He is hemodynamically stable now and in no distress on exam, conversing very easily. He is on PPI and continuing brilinta for now. GI and cardiology both consulted. Trending troponins in the meantime. no NSAID or EtOH use. obviously high risk for cardiac event but also has active melena so discussed difficulty of navigating this situation with patient. Will try to manage while coordinating with both consultants. <Wu Garza - 08/27/18 21:00>
[2018-08-27] MEDS ORDERED: Acetaminophen 325 MG Tablet PO PRN (16:46)
[2018-08-27] MEDS ORDERED: Bisacodyl 10 MG Supp RECTAL PRN (16:46)
[2018-08-27] MEDS: amLODIPine 5 MG Tablet PO SCH (18:04)
--- NOTE | 2018-08-27 18:18 | P.CONGI ---
History of Present Illness Consult date: 08/27/18 Consult reason: Upper GI bleed Melena stools Chief complaint: NSTEMI, GI bleed CKD History of Present Illness: This patient is an 83-year-old male patient with past medical history significant for hypertension, coronary artery disease, CVA, GERD, Franco's esophagus, peripheral arterial disease, hypertrophy of the prostate, diabetes mellitus, chronic kidney disease and COPD. Patient is presently on Brilinta and aspirin. Patient states he has been on Brilinta since 2008, at which time he underwent 5 vessel bypass surgery. Patient states he had CVA in 2013. On consultation, patient reports noticing black tarry stools for 3 days. He states his last dose of Brilinta was on 08/26. Patient states he stopped taking the Brilinta for 4 days prior to cardiac cath performed on 08/26/2018. States last colonoscopy was done in 2012 and to his recollection there were no abnormal findings reported. Patient states he has frequent symptoms of acid reflux with heartburn. He takes pantoprazole 40 mg p.o. daily for same. Patient endorses history of esophageal stricture and Franco's esophagus. He states his last esophageal dilatation was done in 2012 and since that time he has had no difficulty swallowing, no pain with swallowing. Patient denies any family history known to him of gastrointestinal disorders. He denies any use of tobacco or alcohol products. Patient is post left heart catheterization, coronary angiography, bypass graft angiography. As per cardiology notes, patient has mild aortic stenosis, left main and triple-vessel disease and 3 out of 5 patent bypass grafts. Elevated troponin I 0.39 BNP 680. Our service has been consulted to evaluate patient's report of dark to black tarry stools. Review of Systems All other systems reviewed negative except as stated in HPI PMFSH - History History Provided By: Patient - Medical History Medical History: Medical History (Last Reviewed 08/27/18 @ 14:06 by Mali Morelos) Anemia Franco esophagus Basal cell carcinoma CAD (coronary artery disease) CKD (chronic kidney disease), stage IV Cubital tunnel syndrome Diabetes Enlarged prostate GERD (gastroesophageal reflux disease) HTN (hypertension) History of kidney stones History of stroke PAD (peripheral artery disease) Peripheral neuropathy RBBB - Surgical History Surgical History: Surgical History (Last Updated 08/27/18 @ 14:12 by Mali Morelos) S/P cardiac cath H/O endarterectomy History of cataract surgery S/P CABG x 5 - Tobacco History Second Hand Smoke Exposure: No Tobacco Use In Past 30 Days: No Smoking Status: Former smoker - Alcohol History How Often Do You Have a Drink Containing Alcohol: 2 to 4 times a month - Substance Use History Substance History: No History of Abuse - Travel History Recent Travel in the [place] Within the Last 8 Weeks: No Recent Travel Out of the Country Within the Last 8 Weeks: No - Immunization History Tetanus Immunization: <5 Years Medications and Allergies Active Medications: Active Medications Acetaminophen (Tylenol) 650 mg PO Q4H PRN PRN Reason: Temp > 100.4 Al Hydroxide/Mg Hydroxide (Milk Of Magnesia Liq) 30 ml PO Q12H PRN PRN Reason: Mild Constipation Albuterol (Ventolin Hfa Inh) 2 puff INH Q4H PRN PRN Reason: Shortness Of Breath Amlodipine Besylate (Norvasc) 2.5 mg PO DAILY [facility] Aspirin (Aspirin Chew) 81 mg PO DAILY [facility] Atorvastatin Calcium (Lipitor) 80 mg PO DAILY [facility] Bisacodyl (Dulcolax Supp) 10 mg RECTAL DAILY PRN PRN Reason: SEVERE CONSITIPATION Isosorbide Mononitrate (Imdur) 60 mg PO DAILY [facility] Lactulose (Lactulose Liq) 30 ml PO DAILY PRN PRN Reason: SEVERE CONSITIPATION Metoprolol Tartrate (Lopressor) 50 mg PO BID [facility] Miscellaneous (Pill Splitter) 1 each OTHER UNSCH PRN PRN Reason: SEE LABEL COMMENTS Nitroglycerin (Nitrostat Sl) 0.4 mg SL Q5M PRN PRN Reason: Chest Pain Ondansetron HCl (Zofran Inj) 4 mg IV.PUSH Q6H PRN PRN Reason: NAUSEA OR VOMITING Pantoprazole Sodium (Protonix) 40 mg PO DAILY [facility] Sennosides (Senokot) 17.2 mg PO Q12H PRN PRN Reason: Moderate Constipation Sodium Chloride (Ns Flush) 2 ml IV.FLUSH UNSCH PRN PRN Reason: FLUSH AFTER USING IV ACCESS Last Admin: 08/27/18 14:52 Dose: 2 ml Tamsulosin HCl (Flomax) 0.8 mg PO DAILY [facility] Ticagrelor (Brilinta) 90 mg PO BID [facility] Allergies Allergy/AdvReac Type Severity Reaction Status Date / Time No Known Allergies Allergy Verified 08/27/18 14:04 Home Medications Medication Instructions Recorded Confirmed Type albuterol sulfate [ProAir HFA] 2 puff INHALATION Q4-6H PRN 08/26/18 08/27/18 History amlodipine 2.5 mg PO DAILY 08/26/18 08/27/18 History aspirin 81 mg PO DAILY 08/26/18 08/27/18 History isosorbide mononitrate 60 mg PO DAILY 08/26/18 08/27/18 History metoprolol tartrate 50 mg PO BID 08/26/18 08/27/18 History nitroglycerin 0.4 mg SUBLINGUAL Q5-15M PRN 08/26/18 08/27/18 History pantoprazole 40 mg PO DAILY 08/26/18 08/27/18 History rosuvastatin 40 mg PO DAILY 08/26/18 08/27/18 History tamsulosin 0.8 mg PO DAILY 08/26/18 08/27/18 History ticagrelor [Brilinta] 90 mg PO BID 08/26/18 08/27/18 History Exam Vital signs: Vital Signs 08/27/18 13:53 08/27/18 14:04 08/27/18 14:16 Temperature 97.2 F L Pulse Rate 83 87 69 Respiratory Rate 29 H 21 Blood Pressure 144/63 H 146/69 H Pulse Oximetry 97 98 98 08/27/18 15:58 Temperature Pulse Rate 77 Respiratory Rate 21 Blood Pressure 119/76 Pulse Oximetry 95 Intake & Output 08/26/18 08/27/18 08/27/18 18:59 06:59 18:59 Weight 111.13 kg - Constitutional no acute distress - Routine HEENT Exam Head: Present: normocephalic - Routine Respiratory Exam Present: CTA bilaterally. Absent: accessory muscle use - Routine Cardiovascular Exam Present: S1, S2 - Routine Abdominal Exam Present: soft, normoactive bowel sounds. Absent: tenderness, distended, guarding, firm - Routine Extremities Exam Present: edema. Absent: cyanosis - Routine Skin Exam Present: dry, warm. Absent: pallor - Routine Neurological Exam Present: alert, oriented X3 Results - Labs CBC & Chem 7: 08/27/18 14:19 08/27/18 14:19 Labs: Laboratory Results - last 24 hr 11/08/27/18 08/27/18 14:19 14:19 14:19 WBC 7.6 RBC 2.95 L Hgb 9.5 L Hct 26.6 L MCV 90.2 MCH 32.1 MCHC 35.6 RDW 15.2 Plt Count 229 MPV 7.7 Neut % (Auto) 80.3 H Lymph % (Auto) 10.4 Bell % (Auto) 6.9 Eos % (Auto) 1.5 Baso % (Auto) 0.9 Neut # (Auto) 6.1 Lymph # (Auto) 0.8 L Bell # (Auto) 0.5 Eos # (Auto) 0.1 Baso # (Auto) 0.1 WBC Differential . Differential Comment Auto diff final PT INR APTT Sodium 142 Potassium 4.1 Chloride 106 Carbon Dioxide 27.0 Anion Gap 9 BUN 29 H Creatinine 2.11 H Estimated GFR 30 L Random Glucose 123 H Calcium 9.1 Magnesium 2.0 Total Bilirubin 0.6 AST 20 ALT 20 Alkaline Phosphatase 76 Total Creatine Kinase 92 Troponin I 1.39 H* B-Natriuretic Peptide 680 H Total Protein 6.7 Albumin 3.3 L Blood Type Blood Type Recheck Antibody Screen 08/27/18 08/27/18 08/27/18 14:19 14:19 14:19 WBC RBC Hgb Hct MCV MCH MCHC RDW Plt Count MPV Neut % (Auto) Lymph % (Auto) Bell % (Auto) Eos % (Auto) Baso % (Auto) Neut # (Auto) Lymph # (Auto) Bell # (Auto) Eos # (Auto) Baso # (Auto) WBC Differential Differential Comment PT 10.4 INR 1.0 APTT 27.8 Sodium Potassium Chloride Carbon Dioxide Anion Gap BUN Creatinine Estimated GFR Random Glucose Calcium Magnesium Cancelled Total Bilirubin AST ALT Alkaline Phosphatase Total Creatine Kinase Troponin I B-Natriuretic Peptide Total Protein Albumin Blood Type O Positive Blood Type Recheck Not needed Antibody Screen Negative - Imaging Impressions Chest X-Ray 08/27/18 14:13 CONCLUSION: Cardiomegaly and chronic appearing interstitial changes. No acute abnormality. Assessment and Plan - Plan This patient is an 83-year-old male patient with past medical history significant for hypertension, coronary artery disease, CVA, GERD, Franco's esophagus, peripheral arterial disease, hypertrophy of the prostate, diabetes mellitus, chronic kidney disease and COPD. Patient is presently on Brilinta and aspirin. Patient states he has been on Brilinta since 2008, at which time he underwent 5 vessel bypass surgery. Patient states he had CVA in 2013. On consultation, patient reports noticing black tarry stools for 3 days. He states his last dose of Brilinta was on 08/26. Patient states he stopped taking the Brilinta for 4 days prior to cardiac cath performed on 08/26/2018. States last colonoscopy was done in 2012 and to his recollection there were no abnormal findings reported. Patient states he has frequent symptoms of acid reflux with heartburn. He takes pantoprazole 40 mg p.o. daily for same. Patient endorses history of esophageal stricture and Franco's esophagus. He states his last esophageal dilatation was done in 2012 and since that time he has had no difficulty swallowing, no pain with swallowing. Patient denies any family history known to him of gastrointestinal disorders. He denies any use of tobacco or alcohol products. Patient is post left heart catheterization, coronary angiography, bypass graft angiography. As per cardiology notes, patient has mild aortic stenosis, left main and triple-vessel disease and 3 out of 5 patent bypass grafts. Elevated troponin 1.39 BNP 680. Our service has been consulted to evaluate patient's report of dark to black tarry stools. Upper GI bleed with melena stools Patient endorses 3-day history of noticing black tarry stools. Denies any abdominal pain nausea or vomiting. Patient has been on Brilinta for coronary artery disease and CVA. Patient is status post cardiac cath with reported vessel disease. Troponin elevated 1.39, BNP 680 hemoglobin 9.5 hematocrit 26.6 platelet count 229 Plan -N.p.o.-May advance to clear liquid diet if stable -Monitor hemoglobin and hematocrit -Monitor for active bleeding -Pantoprazole-PPI -Patient will need upper endoscopy-will require cardiac clearance for same -Anticoagulants as per attending and cardiology -Supportive care -Further recommendations to follow based on patient status and findings This patient has been seen by myself and Dr. Livingston and this note is written on his behalf - Attending Attestation Dr. Livingston
[2018-08-27] MEDS ORDERED: Dextrose 50% in Water 50 ML Vial IV.PUSH PRN (20:30)
[2018-08-27 21:43] LABS: Hematocrit 26.2 % (39.0-51.0)
[2018-08-27] MEDS: Metoprolol Tartrate 25 MG Tablet PO SCH (22:00)
[2018-08-27] MEDS: Insulin NovoLOG Aspart Correctional Sugar Inj SQ SCH (22:00)
--- NOTE | 2018-08-28 02:29 | XR ---
EXAM DATE: 08/28/2018 2:21 AM EST AGE/SEX: 83 years / Male INDICATIONS: Short of breath. CLINICAL DATA: This is the patient's subsequent encounter. Patient reports that signs and symptoms h ave been present for 2 days and indicates a pain score of Nonresponsive. MEDICAL/SURGICAL HISTORY: . Cardiac . [address] way bypass. COMPARISON: [facility], CHEST 1V SINGLE AP, 08/27/2018. . FINDINGS: A single AP portable semierect view of the chest was obtained and demonstrates new bilateral alveolar opacities throughout both lungs. The heart size is moderately enlarged. The patient is status post m edian sternotomy. There is no distinct effusion however the tip of the right costophrenic angle is cu t off the exam. The bony thorax is intact. CONCLUSION: New bilateral alveolar opacities most characteristic of pulmonary edema. This may indicate congestive heart failure or fluid overload. Electronically signed by: Wu Juan MD 08/28/2018 2:27 AM EST
--- NOTE | 2018-08-28 02:31 | P.PNADD ---
Addendum to Inpatient Note Reason for Addendum: Additional Documentation Additional information: Subjective: Resident team was paged at 1:47 AM regarding patient having increased work of breathing for the past 30 minutes. Nurse reported that the patient had crackles in the lung bases and lower extremity edema. Resident team went to evaluate the patient. Patient reports that he feels short of breath different than he felt before. He also reports hot flashes. He reports that he received fluid boluses yesterday for his procedure to try to correct his CKD. He does have a history of COPD but does not use his inhaler at home frequently. Patient denied chest pain at the time of our examination. Objective: respiratory: increased work of breathing. crackles on the right lung base. clear on the left. cardio: regular rate and rhythm, no murmurs appreciated extremities: bilateral LE edema to the mid muniz Assessment and plan: Patient is likely fluid overloaded from bolus yesterday. -CXR: wet read with right basilar congestion -EKG: sinus rhythm with RBBB unchanged from previous EKG -Duoneb treatment x 1 -Lasix IV 40 mg once
[2018-08-28] MEDS ORDERED: Morphine Sulfate Inj 2 MG/ML Vial ONE (02:57)
[2018-08-28 03:02] LABS: ABG Base Excess -3.2 mmol/L (-2-2); ABG PCO2 46 mmHg (38-42); ABG PO2 74 mmHG (61-120)
--- NOTE | 2018-08-28 03:46 | P.CONCC ---
History of Present Illness Primary Care Provider: Nickolas Bledsoe MD Chief Complaint: GI bleed History of Present Illness: 83-year-old gentleman, the patient of Dr Quinones from cardiology with history of hypertension, coronary artery disease, GERD with Franco's esophagus, DM with peripheral neuropathy, BPH, PAD, angina, arthritis, history of CABG, CKD stage 4 , tinnitus, and questionable of COPD. He has had 1 month chest pain with dyspnea and sputum production. The patient underwent cardiac catheterization that demonstrates Mild aortic stenosis, Left main and triple vessel disease, and Three out of five patent bypass grafts. The patient has had 2-day history of black stool but no bright red blood. The patient denies use of iron supplements. Denies loose stools but has constipation. Patient is on Brillinta and took last dose last night. Hgb was 9.5 today. He feels no chest pain in the wrist and he feels more congested when breathing in; does not report trouble getting air out. He was admitted initially to family medicine residency service for an evaluation of melanotic stool, however developed worsening of shortness of breath requiring BiPAP placement and transfer to ICU. The chest x-ray demonstrates worsening pulmonary edema. Review of Systems unobtainable due to mental condition PMFSH - History History Provided By: Patient - Medical History Medical History: Medical History (Last Reviewed 08/27/18 @ 14:06 by Mali Morelos) Anemia Franco esophagus Basal cell carcinoma CAD (coronary artery disease) CKD (chronic kidney disease), stage IV Cubital tunnel syndrome Diabetes Enlarged prostate GERD (gastroesophageal reflux disease) HTN (hypertension) History of kidney stones History of stroke PAD (peripheral artery disease) Peripheral neuropathy RBBB - Surgical History Surgical History: Surgical History (Last Updated 08/27/18 @ 14:12 by Mali Morelos) S/P cardiac cath H/O endarterectomy History of cataract surgery S/P CABG x 5 - Tobacco History Second Hand Smoke Exposure: No Tobacco Use In Past 30 Days: No Smoking Status: Former smoker - Alcohol History How Often Do You Have a Drink Containing Alcohol: 2 to 4 times a month - Substance Use History Substance History: No History of Abuse - Travel History Recent Travel in the [place] Within the Last 8 Weeks: No Recent Travel Out of the Country Within the Last 8 Weeks: No - Immunization History Tetanus Immunization: <5 Years Medications and Allergies Active Medications: Active Medications Acetaminophen (Tylenol) 650 mg PO Q4H PRN PRN Reason: Temp > 100.4 Al Hydroxide/Mg Hydroxide (Milk Of Magnesia Liq) 30 ml PO Q12H PRN PRN Reason: Mild Constipation Albuterol (Ventolin Hfa Inh) 2 puff INH Q4H PRN PRN Reason: Shortness Of Breath Amlodipine Besylate (Norvasc) 2.5 mg PO DAILY [facility] Last Admin: 08/27/18 18:04 Dose: 2.5 mg Aspirin (Aspirin Chew) 81 mg PO DAILY [facility] Atorvastatin Calcium (Lipitor) 80 mg PO DAILY [facility] Bisacodyl (Dulcolax Supp) 10 mg RECTAL DAILY PRN PRN Reason: SEVERE CONSITIPATION Dextrose (D50w Vial) 50 ml IV.PUSH UNSCH PRN PRN Reason: PER HYPOGLYCEMIA PROTOCOL Furosemide (Lasix Inj) 40 mg IV.PUSH DAILY [facility] [place] Glucagon (Glucagon Inj) 1 mg OTHER PRN PRN PRN Reason: for Hypoglycemia Protocol Insulin Aspart (Novolog Insulin Correctional Sugar Inj) 0 unit SQ ACHS AND 3AM ROXANNE; Protocol Last Admin: 08/27/18 22:00 Dose: Not Given Isosorbide Mononitrate (Imdur) 60 mg PO DAILY [facility] [place] Lactulose (Lactulose Liq) 30 ml PO DAILY PRN PRN Reason: SEVERE CONSITIPATION Metoprolol Tartrate (Lopressor) 50 mg PO BID [facility] [place] Last Admin: 08/27/18 22:00 Dose: 50 mg Miscellaneous (Pill Splitter) 1 each OTHER UNSCH PRN PRN Reason: SEE LABEL COMMENTS Nitroglycerin (Nitrostat Sl) 0.4 mg SL Q5M PRN PRN Reason: Chest Pain Last Admin: 08/27/18 23:15 Dose: 0.4 mg Nitroglycerin (Nitro-Bid 2% Oint) 1 inch TOPICAL Q6HR [facility] [place] Last Admin: 08/28/18 00:13 Dose: 1 inch Ondansetron HCl (Zofran Inj) 4 mg IV.PUSH Q6H PRN PRN Reason: NAUSEA OR VOMITING Pantoprazole Sodium (Protonix) 40 mg PO DAILY [facility] [place] Sennosides (Senokot) 17.2 mg PO Q12H PRN PRN Reason: Moderate Constipation Sodium Chloride (Ns Flush) 2 ml IV.FLUSH UNSCH PRN PRN Reason: FLUSH AFTER USING IV ACCESS Last Admin: 08/27/18 14:52 Dose: 2 ml Tamsulosin HCl (Flomax) 0.8 mg PO DAILY [facility] [place] Ticagrelor (Brilinta) 90 mg PO BID [facility] [place] Last Admin: 08/27/18 22:00 Dose: 90 mg Allergies Allergy/AdvReac Type Severity Reaction Status Date / Time No Known Allergies Allergy Verified 08/27/18 14:04 Home Medications Medication Instructions Recorded Confirmed Type albuterol sulfate [ProAir HFA] 2 puff INHALATION Q4-6H PRN 08/26/18 08/27/18 History amlodipine 2.5 mg PO DAILY 08/26/18 08/27/18 History aspirin 81 mg PO DAILY 08/26/18 08/27/18 History isosorbide mononitrate 60 mg PO DAILY 08/26/18 08/27/18 History metoprolol tartrate 50 mg PO BID 08/26/18 08/27/18 History nitroglycerin 0.4 mg SUBLINGUAL Q5-15M PRN 08/26/18 08/27/18 History pantoprazole 40 mg PO DAILY 08/26/18 08/27/18 History rosuvastatin 40 mg PO DAILY 08/26/18 08/27/18 History tamsulosin 0.8 mg PO DAILY 08/26/18 08/27/18 History ticagrelor [Brilinta] 90 mg PO BID 08/26/18 08/27/18 History Physical Exam Vital signs: Vital Signs 08/27/18 13:53 08/27/18 14:04 08/27/18 14:16 Temperature 97.2 F L Pulse Rate 83 87 69 Respiratory Rate 29 H 21 Blood Pressure 144/63 H 146/69 H Pulse Oximetry 97 98 98 08/27/18 15:58 08/27/18 18:01 08/27/18 18:41 Temperature Pulse Rate 77 93 H 77 Respiratory Rate 21 21 18 Blood Pressure 119/76 144/64 H 137/66 Pulse Oximetry 95 97 97 08/27/18 20:00 08/28/18 00:00 08/28/18 02:45 Temperature 97.7 F 97.6 F Pulse Rate 78 84 Respiratory Rate 20 20 Blood Pressure 123/73 123/73 Pulse Oximetry 97 97 91 L 08/28/18 03:02 Temperature Pulse Rate 104 H Respiratory Rate 22 Blood Pressure Pulse Oximetry Intake & Output 08/27/18 08/27/18 08/28/18 06:59 18:59 06:59 Output Total 100 / 100 Balance -100 / -100 Weight 111.13 kg Output: Urine 100 / 100 Other: # Voids 1 - Constitutional moderate distress - Routine HEENT Exam Head: Present: normocephalic, atraumatic Eye: Present: PERRL, normal accommodation ENT: Present: mucous membranes moist - Routine Neck Exam Present: supple, full ROM. Absent: JVD, carotid bruit - Routine Respiratory Exam Present: rhonchi, crackles. Absent: accessory muscle use, patient mechanically ventilated, stridor, wheezes - Routine Cardiovascular Exam Present: RRR, S1, S2 - Routine Abdominal Exam Present: soft, normoactive bowel sounds. Absent: tenderness, distended - Routine Extremities Exam Absent: cyanosis, clubbing, edema - Routine Skin Exam Present: intact. Absent: cyanosis, erythema - Routine Neurological Exam Present: moving all extremities Septic Shock Reassessment Septic shock perfusion: reassessment completed Assessment and Plan - Assessment and Plan Plan: Respiratory failure -CXR demonstrates pulmonary edema -Aggressive diuresis -BiPAP as needed -DuoNeb scheduled and as needed Pulmonary edema -Status post cardiac catheterization 2 days ago with patent 3 out of 5 grafts -Management per Dr. Quinones cardiology GI bleed -Upper GI bleed with melena stools -PPI -Gastroenterology consult appreciated Franco esophagus -PPI Coronary artery disease -Brilinta per cardiology Chronic kidney disease, stage IV -I's and O's strict -Monitor creatinine and electrolyte levels Diabetes mellitus -Insulin sliding scale Hypertension -Norvasc -Isosorbide -Metoprolol BPH -Flomax DVT GI prophylaxis -Teds SCDs -Pharmacological DVT prophylaxis per GI -Protonix 35 minutes of critical care
[2018-08-28] MEDS: Insulin NovoLOG Aspart Correctional Sugar Inj SQ SCH ×5 (04:09→22:19)
[2018-08-28 04:34] LABS: Baso % (Auto) 0.5 % (0.0-2.0); Eos % (Auto) 0.6 % (0.0-4.0); Hematocrit 28.4 % (39.0-51.0); Hemoglobin 9.8 gm/dL (13.0-17.0); Lymph # (Auto) 0.4 th/mm3 (1.0-4.8); Lymph % (Auto) 5.5 % (9.0-44.0); Mean Corpuscular HGB Conc 34.6 % (32.0-36.0); Mean Corpuscular Hemoglobin 31.2 pg (27.0-34.0); Mean Corpuscular Volume 90.1 fL (80.0-100.0); Mean Platelet Volume 7.3 fL (7.0-11.0); Mono # (Auto) 0.3 th/mm3 (0.0-0.9); Mono % (Auto) 3.5 % (0.0-8.0); Neut % (Auto) 89.9 % (16.0-70.0); Platelet Count 226 th/mm3 (150-450); Red Blood Count 3.15 mil/mm3 (4.50-5.90); Red Cell Distribution Width 15.6 % (11.6-17.2); White Blood Count 7.7 th/mm3 (4.0-11.0)
[2018-08-28 04:43] LABS: Prothrombin Time 10.4 sec (9.8-11.6)
[2018-08-28 05:12] LABS: Alanine Aminotransferase 22 U/L (12-78); Albumin 3.4 g/dL (3.4-5.0); Anion Gap 8 meq/L (5-15); Aspartate Aminotransferase 26 U/L (15-37); Blood Urea Nitrogen 30 mg/dL (7-18); Calcium 8.9 mg/dL (8.5-10.1); Carbon Dioxide 27.1 meq/L (21.0-32.0); Chloride 106 meq/L (98-107); Glomerular Filtration Rate 27 mL/min (>89); Glucose,Random 190 mg/dL (74-106); Potassium 4.7 meq/L (3.5-5.1); Sodium 141 meq/L (136-145)
[2018-08-28 05:14] LABS: Alkaline Phosphatase 77 U/L (45-117); Total Protein 6.9 g/dL (6.4-8.2)
[2018-08-28] MEDS ORDERED: Iohexol 350 MG/ML 100 ML Vial (for Cath Lab) IVCONTRAST ONE (07:47)
[2018-08-28] MEDS ORDERED: Iohexol 350 MG/ML 50 ML Vial (for Cath Lab) IVCONTRAST ONE (07:47)
[2018-08-28] MEDS ORDERED: Propofol Inj 500 MG/50 ML Vial ONE (09:58)
--- NOTE | 2018-08-28 10:00 | P.PCN ---
Date of procedure: 08/28/18 Procedure: THANK YOU FOR THE REFERRAL Indication; black tarry stool, anemia, PA on anticoagulation Procedure Performed; upper endoscopy diagnostic After informing the patient about procedure and possible complications consent was signed. history and physical were updated. Patient was taken to the procedure room and placed in position. Time out was completed. Adequate sedation was performed by anesthesia provider. Upper Endoscopy, the scope was placed in the mouth advanced under video guide to the second portion of the duodenum, then the scope was withdrawal to the stomach and retro-flexion was performed, the scope was withdrawal to the esophagus then out of the mouth without any immediate complication Findings; Esophagus: Irregular Z line biopsy was not done because of the anticoagulation questionable short Franco's Stomach normal no sign of active bleeding Duodenum minimal duodenitis no active bleeding If the area is high suspicion for upper GI bleed patient will need capsule endoscopy as an outpatient Recommendations; 1- Supportive care 2- ok to transfer to recovery area then discharge per protocol 3-if patient need anticoagulation he need to have close monitoring of hemoglobin with packed RBC as needed 0-[id number] diet 5- EGD in few month when he is able to be off anticoagulation 6-continue PPI 7-we will follow-up as needed
--- NOTE | 2018-08-28 10:04 | P.PNGI ---
Subjective Interval history: Patient laying in bed, seems to be comfortable, I had a discussion with Dr. Young Quinones, he would like us to do an endoscopy today and then take him to [facility] for stenting, we need to know if he has active bleeding from GI source in the stomach or upper GI tract, patient aware that he is high risk for the procedure Physical Exam Vital signs: Vital Signs 08/27/18 13:53 08/27/18 14:04 08/27/18 14:16 Temperature 97.2 F L Pulse Rate 83 87 69 Respiratory Rate 29 H 21 Blood Pressure 144/63 H 146/69 H Pulse Oximetry 97 98 98 08/27/18 15:58 08/27/18 18:01 08/27/18 18:41 Temperature Pulse Rate 77 93 H 77 Respiratory Rate 21 21 18 Blood Pressure 119/76 144/64 H 137/66 Pulse Oximetry 95 97 97 08/27/18 20:00 08/28/18 00:00 08/28/18 02:45 Temperature 97.7 F 97.6 F Pulse Rate 78 84 Respiratory Rate 20 20 Blood Pressure 123/73 123/73 Pulse Oximetry 97 97 91 L 08/28/18 03:00 08/28/18 03:02 08/28/18 04:00 Temperature 97.7 F 97.7 F Pulse Rate 82 104 H 77 Respiratory Rate 24 22 20 Blood Pressure 140/65 128/61 Pulse Oximetry 99 100 08/28/18 04:41 08/28/18 08:48 Temperature Pulse Rate Respiratory Rate Blood Pressure Pulse Oximetry 100 98 Intake & Output 08/27/18 08/28/18 08/28/18 18:59 06:59 18:59 Intake Total 0 / 0 300 / 300 Output Total 1000 / 1000 Balance -1000 / -1000 300 / 300 Weight 111.13 kg 113.5 kg Intake: Oral 0 / 0 Anesthesia Amount 300 / 300 Output: Urine 1000 / 1000 Other: # Voids 1 - Constitutional no acute distress - Routine HEENT Exam Head: Present: normocephalic, atraumatic Eye: Present: EOMI, PERRL ENT: Present: mucous membranes moist - Routine Neck Exam Present: supple, full ROM - Routine Respiratory Exam Present: CTA bilaterally - Routine Cardiovascular Exam Present: RRR, S1, S2 - Routine Abdominal Exam Present: soft, normoactive bowel sounds - Routine Extremities Exam Present: edema - Routine Skin Exam Present: intact, warm - Routine Neurological Exam Present: oriented X3 - Routine Psychiatric Exam Present: normal affect Results - Labs CBC & Chem 7: 08/28/18 04:24 08/28/18 04:24 Laboratory Results - last 24 hr 08/27/18 08/27/18 08/27/18 14:19 14:19 14:19 WBC 7.6 RBC 2.95 L Hgb 9.5 L Hct 26.6 L MCV 90.2 MCH 32.1 MCHC 35.6 RDW 15.2 Plt Count 229 MPV 7.7 Neut % (Auto) 80.3 H Lymph % (Auto) 10.4 [place] % (Auto) 6.9 Eos % (Auto) 1.5 Baso % (Auto) 0.9 Neut # (Auto) 6.1 Lymph # (Auto) 0.8 L [place] # (Auto) 0.5 Eos # (Auto) 0.1 Baso # (Auto) 0.1 WBC Differential . Differential Comment Auto diff final PT INR APTT Puncture Site Patient Temperature O2 Saturation ABG pH ABG pCO2 ABG pO2 ABG HCO3 ABG O2 Content ABG Base Excess ABG Methemoglobin Frankie Test Hemoglobin Carboxyhemoglobin O2 Delivery Device Liter Flow Inspired O2 Critical Value Sodium 142 Potassium 4.1 Chloride 106 Carbon Dioxide 27.0 Anion Gap 9 BUN 29 H Creatinine 2.11 H Estimated GFR 30 L POC Glucose Random Glucose 123 H Calcium 9.1 Magnesium 2.0 Total Bilirubin 0.6 AST 20 ALT 20 Alkaline Phosphatase 76 Total Creatine Kinase 92 Troponin I 1.39 H* B-Natriuretic Peptide 680 H Total Protein 6.7 Albumin 3.3 L Blood Type Blood Type Recheck Antibody Screen 08/27/18 08/27/18 08/27/18 14:19 14:19 14:19 WBC RBC Hgb Hct MCV MCH MCHC RDW Plt Count MPV Neut % (Auto) Lymph % (Auto) [place] % (Auto) Eos % (Auto) Baso % (Auto) Neut # (Auto) Lymph # (Auto) [place] # (Auto) Eos # (Auto) Baso # (Auto) WBC Differential Differential Comment PT 10.4 INR 1.0 APTT 27.8 Puncture Site Patient Temperature O2 Saturation ABG pH ABG pCO2 ABG pO2 ABG HCO3 ABG O2 Content ABG Base Excess ABG Methemoglobin Frankie Test Hemoglobin Carboxyhemoglobin O2 Delivery Device Liter Flow Inspired O2 Critical Value Sodium Potassium Chloride Carbon Dioxide Anion Gap BUN Creatinine Estimated GFR POC Glucose Random Glucose Calcium Magnesium Cancelled Total Bilirubin AST ALT Alkaline Phosphatase Total Creatine Kinase Troponin I B-Natriuretic Peptide Total Protein Albumin Blood Type O Positive Blood Type Recheck Not needed Antibody Screen Negative 08/27/18 08/27/18 08/28/18 21:36 21:36 01:41 WBC RBC Hgb 9.0 L Hct 26.2 L MCV MCH MCHC RDW Plt Count MPV Neut % (Auto) Lymph % (Auto) [place] % (Auto) Eos % (Auto) Baso % (Auto) Neut # (Auto) Lymph # (Auto) [place] # (Auto) Eos # (Auto) Baso # (Auto) WBC Differential Differential Comment PT INR APTT Puncture Site Patient Temperature O2 Saturation ABG pH ABG pCO2 ABG pO2 ABG HCO3 ABG O2 Content ABG Base Excess ABG Methemoglobin Frankie Test Hemoglobin Carboxyhemoglobin O2 Delivery Device Liter Flow Inspired O2 Critical Value Sodium Potassium Chloride Carbon Dioxide Anion Gap BUN Creatinine Estimated GFR POC Glucose 141 H Random Glucose Calcium Magnesium Total Bilirubin AST ALT Alkaline Phosphatase Total Creatine Kinase Troponin I 1.15 H* B-Natriuretic Peptide Total Protein Albumin Blood Type Blood Type Recheck Antibody Screen 08/28/18 08/28/18 08/28/18 02:51 04:24 04:24 WBC 7.7 RBC 3.15 L Hgb 9.8 L Hct 28.4 L MCV 90.1 MCH 31.2 MCHC 34.6 RDW 15.6 Plt Count 226 MPV 7.3 Neut % (Auto) 89.9 H Lymph % (Auto) 5.5 L [place] % (Auto) 3.5 Eos % (Auto) 0.6 Baso % (Auto) 0.5 Neut # (Auto) 7.0 Lymph # (Auto) 0.4 L [place] # (Auto) 0.3 Eos # (Auto) 0.0 Baso # (Auto) 0.0 WBC Differential . Differential Comment Auto diff final PT INR APTT Puncture Site Right radial Patient Temperature 98.6 O2 Saturation 90 ABG pH 7.31 L ABG pCO2 46 H ABG pO2 74 ABG HCO3 22 ABG O2 Content 15.8 ABG Base Excess -3.2 L ABG Methemoglobin 1.5 Frankie Test Present Hemoglobin 12.4 Carboxyhemoglobin 1.1 O2 Delivery Device Sm Liter Flow 10.00 Inspired O2 55 Critical Value No Sodium Potassium Chloride Carbon Dioxide Anion Gap BUN Creatinine Estimated GFR POC Glucose Random Glucose Calcium Magnesium Total Bilirubin AST ALT Alkaline Phosphatase Total Creatine Kinase Troponin I 1.93 H* B-Natriuretic Peptide Total Protein Albumin Blood Type Blood Type Recheck Antibody Screen 08/28/18 08/28/18 04:24 04:24 WBC RBC Hgb Hct MCV MCH MCHC RDW Plt Count MPV Neut % (Auto) Lymph % (Auto) [place] % (Auto) Eos % (Auto) Baso % (Auto) Neut # (Auto) Lymph # (Auto) [place] # (Auto) Eos # (Auto) Baso # (Auto) WBC Differential Differential Comment PT 10.4 INR 1.0 APTT Puncture Site Patient Temperature O2 Saturation ABG pH ABG pCO2 ABG pO2 ABG HCO3 ABG O2 Content ABG Base Excess ABG Methemoglobin Frankie Test Hemoglobin Carboxyhemoglobin O2 Delivery Device Liter Flow Inspired O2 Critical Value Sodium 141 Potassium 4.7 Chloride 106 Carbon Dioxide 27.1 Anion Gap 8 BUN 30 H Creatinine 2.29 H Estimated GFR 27 L POC Glucose Random Glucose 190 H Calcium 8.9 Magnesium Total Bilirubin 0.7 AST 26 ALT 22 Alkaline Phosphatase 77 Total Creatine Kinase Troponin I B-Natriuretic Peptide Total Protein 6.9 Albumin 3.4 Blood Type Blood Type Recheck Antibody Screen - Imaging Impressions Chest X-Ray 08/27/18 14:13 CONCLUSION: Cardiomegaly and chronic appearing interstitial changes. No acute abnormality. Chest X-Ray 08/28/18 02:01 CONCLUSION: New bilateral alveolar opacities most characteristic of pulmonary edema. This may indicate congestive heart failure or fluid overload. Assessment and Plan - Plan This patient is an 83-year-old male patient with past medical history significant for hypertension, coronary artery disease, CVA, GERD, Franco's esophagus, peripheral arterial disease, hypertrophy of the prostate, diabetes mellitus, chronic kidney disease and COPD. Patient is presently on Brilinta and aspirin. Patient states he has been on Brilinta since 2008, at which time he underwent 5 vessel bypass surgery. Patient states he had CVA in 2013. On consultation, patient reports noticing black tarry stools for 3 days. He states his last dose of Brilinta was on 08/26. Patient states he stopped taking the Brilinta for 4 days prior to cardiac cath performed on 08/26/2018. States last colonoscopy was done in 2012 and to his recollection there were no abnormal findings reported. Patient states he has frequent symptoms of acid reflux with heartburn. He takes pantoprazole 40 mg p.o. daily for same. Patient endorses history of esophageal stricture and Franco's esophagus. He states his last esophageal dilatation was done in 2012 and since that time he has had no difficulty swallowing, no pain with swallowing. Patient denies any family history known to him of gastrointestinal disorders. He denies any use of tobacco or alcohol products. Patient is post left heart catheterization, coronary angiography, bypass graft angiography. As per cardiology notes, patient has mild aortic stenosis, left main and triple-vessel disease and 3 out of 5 patent bypass grafts. Elevated troponin 1.39 BNP 680. Our service has been consulted to evaluate patient's report of dark to black tarry stools. Upper GI bleed with melena stools Patient endorses 3-day history of noticing black tarry stools. Denies any abdominal pain nausea or vomiting. Patient has been on Brilinta for coronary artery disease and CVA. Patient is status post cardiac cath with reported vessel disease. Troponin elevated 1.39, BNP 680 hemoglobin 9.5 hematocrit 26.6 platelet count 229 Plan -N.p.o.-May advance to clear liquid diet if stable -Monitor hemoglobin and hematocrit -Monitor for active bleeding -Pantoprazole-PPI -Patient will need upper endoscopy-will require cardiac clearance for same -Anticoagulants as per attending and cardiology -Supportive care -Further recommendations to follow based on patient status and findings This patient has been seen by myself and Dr. Livingston and this note is written on his behalf 08/28/2018, patient seems to be comfortable, no active bleeding, hemoglobin stable, I discussed the case with Dr. Young Quinones, patient was intubated to protect his airway before the upper endoscopy and he had endoscopy done Findings; Esophagus: Irregular Z line biopsy was not done because of the anticoagulation questionable short Franco's Stomach normal no sign of active bleeding Duodenum minimal duodenitis no active bleeding If the area is high suspicion for upper GI bleed patient will need capsule endoscopy as an outpatient Recommendations; 1- Supportive care 2- ok to transfer to recovery area then discharge per protocol 3-if patient need anticoagulation he need to have close monitoring of hemoglobin with packed RBC as needed 3-[id number] diet 5- EGD in few month when he is able to be off anticoagulation 6-continue PPI 7-we will follow-up as needed
[2018-08-28] MEDS ORDERED: Midazolam Inj 5 MG/ML 1 ML Vial ONE (11:03)
--- NOTE | 2018-08-28 11:21 | P.PCN ---
Procedure: Diagnosis: Respiratory failure Procedure: Orotracheal intubation with #8 tube Narrative: Timeout performed, patient properly identified. Patient extubated self at approximately 1110 hrs. today and required bag mask ventilation because of sudden desaturation. He was not tolerating sudden extubation and because of his relatively unstable cardiac status I elected to reintubate. Versed 5 mg IV followed by rocuronium 50 mg IV. Intubated orally with #8 tube, position verified with CO2 detection, bilateral breath sounds, and oxygen saturation 100% . Chest x-ray ordered will review. Blood pressure maintained in the range of 140-168 systolic during the procedure.
--- NOTE | 2018-08-28 11:30 | MB ---
cc: Young Quinones MD DATE: 08/28/2018 HISTORY OF PRESENT ILLNESS: Jamaal Mcfarland is an 83-year-old man well known to me. He has severe coronary artery disease. I just did a cardiac catheterization on him 2 days ago. He was found to have closure of 2 of his 5 bypass grafts. The patient went home, started having more angina and shortness of breath. He subsequently has been admitted and his troponin is elevated. He says he had a very rough night last night with chest pain. He had gone off his aspirin and Brilinta due to black tarry stools. He is in the process of being scoped as this is being dictated. He had a respiratory decompensation last night and is currently on a BiPAP mask. PAST MEDICAL HISTORY: Includes anemia, mild aortic stenosis, coronary artery disease, kidney stones, carotid artery disease, previous CVA of the left hemisphere. Cervical spondylosis with myelopathy, chronic kidney disease, Plavix nonresponder, degenerative joint disease of the spine, diabetes type 2, erectile dysfunction, esophageal reflux with previous stricture, hyperlipidemia, hypertension, morbid obesity, peripheral neuropathy, peripheral arterial disease, right bundle branch block, rotator cuff syndrome of the right shoulder, spinal stenosis in the lumbar region previous vertigo. PAST SURGICAL HISTORY: Includes cardiac catheterization recently, the vein graft to the diagonal circumflex marginal branch is occluded. Left main has severe disease. Proximal LAD has critical disease. There is disease of the mid circumflex with disease of the marginal branch, which was grafted. The LAD is grafted distally, but it is a small vessel and not adequately perfusing the entire LAD. The graft from the diagonal to the acute marginal or second diagonal is patent, but it is not connected to the aorta. His bypass surgery was 07/22/2009 and he had a left carotid endarterectomy 07/27/2014. Left common femoral endarterectomy 09/25/2013. [employer] atherectomy of the superficial femoral artery with stent of the popliteal artery by Dr. Arevalo. Previous right carotid endarterectomy 10/01/2006. Ulnar nerve, left transposition 2003. MEDICATIONS: Include: Amlodipine 2.5 daily, aspirin 81 mg daily, Brilinta 90 b.i.d., Crestor 40 mg daily, Imdur 60 mg daily, metoprolol 25 b.i.d., nitroglycerin sublingual p.r.n., pantoprazole 40 mg daily, and inhalers and tamsulosin 0.4 mg daily. ALLERGIES: NONE. FAMILY HISTORY: Positive for coronary artery disease, stroke, hypertension, hyperlipidemia, previous MD. SOCIAL HISTORY: Former smoker from age 18 to age 38. He is retired. PHYSICAL EXAMINATION: GENERAL: Reveals a morbidly obese white male. He is mildly tachypneic. VITAL SIGNS: Charted. HEENT: Unremarkable. NECK: Hard to assess her neck veins. CHEST: Shows some bilateral rhonchi and wheezes. CARDIAC: Distant S1, S2, with a soft 2/6 early peaking systolic aortic stenosis murmur. ABDOMEN: Soft, nontender. EXTREMITIES: Reveal trace edema. Left wrist looks okay. Right groin has a good pulse LABORATORY DATA: His EKG this admission shows sinus rhythm with right bundle branch block. His lab work includes a hematocrit of 28.4, creatinine 2.29, BUN 30. Troponin has gone from 1.15 up to 1.93. IMPRESSION: 1. Acute [id number] elevation myocardial infarction. 2. Respiratory compromise. Suspect this may to have some left ventricular dysfunction from his coronary disease. 3. Suspected gastrointestinal bleed. RECOMMENDATIONS: I think he is extremely complicated at this point. I favor getting him scoped which will probably require intubation post scoping. I think he needs taken to the lab and go ahead and Rotablator and stent the left main into the LAD. Hopefully, will not need left circumflex intervention. I am concerned about contrast load. Case is complicated. I have explained this to the patient. He is agreeable to proceed. Further therapy to be determined. MD MESSI Duarte/johnson , 10:09 AM , 10:19 AM
[2018-08-28] MEDS: Isosorbide Mononitrate 30 MG ER 24HR Tablet (Imdur) PO SCH (11:37)
[2018-08-28] MEDS: Metoprolol Tartrate 25 MG Tablet PO SCH ×2 (11:37→20:10)
[2018-08-28] MEDS: amLODIPine 5 MG Tablet PO SCH (11:37)
--- NOTE | 2018-08-28 11:37 | ECG ---
Date Performed: 08/28/2018 Time Performed: 01:37:58 PTAGE: 83 years EKG: Sinus rhythm . Left axis deviation RBBB with left anterior fascicular block Inferior infarct - age undetermined [place] ST-T changes are nonspecific Abnormal ECG NO PREVIOUS TRACING DOCTOR: Severiano Benitez Interpretating Date/Time 08/28/2018 11:35:07
--- NOTE | 2018-08-28 11:38 | ECG ---
Date Performed: 08/27/2018 Time Performed: 22:22:50 PTAGE: 83 years EKG: Sinus rhythm Short UT interval Left axis deviation RBBB with left anterior fascicular block Lateral ST-T changes suggest myocardial injury/ischemia Abnormal ECG PREVIOUS TRACING : 08/27/2018 14.07 DOCTOR: Severiano Benitez Interpretating Date/Time 08/28/2018 11:35:43
[2018-08-28] MEDS: Propofol 1000 mg/100 ml Inj 1,000 MG/100 ML BOTTLE IV.CONT PRN ×3 (12:14→22:21)
[2018-08-28] MEDS: Oral Hygiene Kit OROPHARYNG SCH ×2 (12:31→17:12)
[2018-08-28] MEDS ORDERED: Heparin/NS PF Inj 1,500 ML ONE (12:42)
--- NOTE | 2018-08-28 12:43 | ECG ---
Date Performed: 08/27/2018 Time Performed: 14:07:47 PTAGE: 83 years EKG: Sinus rhythm rbbb ABNORMAL ECG PREVIOUS TRACING : 08/26/2018 07.24 DOCTOR: Severiano Benitez Interpretating Date/Time 08/28/2018 12:41:32
[2018-08-28] MEDS ORDERED: Heparin 10,000 UNITS/10 ML Vial (for IV use) ONE (12:47)
--- NOTE | 2018-08-28 14:23 | P.PNFP ---
Subjective Interval history: Mr. Cantu did not do well overnight. There was a Halicat called last night due to dyspnea and lung crackles requiring partial rebreather and BiPAP to control his O2 sats. He also had elevated troponins. This morning Dr. Quinones, cardiology, and Dr. Livingston, GI, have scheduled him for back to back EGD and heart cath procedures and he is high risk for both. This morning on interview, patient is comfortably breathing via partial rebreather 50% FiO2 with 100% O2 saturation as the nurse is consenting him for the procedures and speaking to his about these procedures. Patient is ready to give it a try. He is not feeling chest pains at this point, no nausea, vomiting, diarrhea, abdominal pain. We will reassess him when he gets out of these procedures and follow recommendations as per GI and cardiology. <Kenneth Salazar III - 08/28/18 14:23> Results - Labs Result diagrams: 08/28/18 04:24 08/28/18 04:24 <Wu Garza - 08/28/18 17:21> Abnormal lab results 08/27/18 08/27/18 08/28/18 Range/Units 21:36 21:36 01:41 RBC (4.50-5.90) mil/mm3 Hgb 9.0 L (13.0-17.0) gm/dL Hct 26.2 L (39.0-51.0) % Neut % (Auto) (16.0-70.0) % Lymph % (Auto) (9.0-44.0) % Lymph # (Auto) (1.0-4.8) th/mm3 ABG pH (7.380-7.420) ABG pCO2 (38-42) mmHg ABG Base Excess (-2-2) mmol/L BUN (7-18) mg/dL Creatinine (0.60-1.30) mg/dL Estimated GFR (>89) mL/min POC Glucose 141 H (68-110) mg/dl Random Glucose (74-106) mg/dL Troponin I 1.15 H* (0.02-0.05) ng/mL 08/28/18 08/28/18 08/28/18 Range/Units 02:51 04:24 04:24 RBC 3.15 L (4.50-5.90) mil/mm3 Hgb 9.8 L (13.0-17.0) gm/dL Hct 28.4 L (39.0-51.0) % Neut % (Auto) 89.9 H (16.0-70.0) % Lymph % (Auto) 5.5 L (9.0-44.0) % Lymph # (Auto) 0.4 L (1.0-4.8) th/mm3 ABG pH 7.31 L (7.380-7.420) ABG pCO2 46 H (38-42) mmHg ABG Base Excess -3.2 L (-2-2) mmol/L BUN (7-18) mg/dL Creatinine (0.60-1.30) mg/dL Estimated GFR (>89) mL/min POC Glucose (68-110) mg/dl Random Glucose (74-106) mg/dL Troponin I 1.93 H* (0.02-0.05) ng/mL 08/28/18 Range/Units 04:24 RBC (4.50-5.90) mil/mm3 Hgb (13.0-17.0) gm/dL Hct (39.0-51.0) % Neut % (Auto) (16.0-70.0) % Lymph % (Auto) (9.0-44.0) % Lymph # (Auto) (1.0-4.8) th/mm3 ABG pH (7.380-7.420) ABG pCO2 (38-42) mmHg ABG Base Excess (-2-2) mmol/L BUN 30 H (7-18) mg/dL Creatinine 2.29 H (0.60-1.30) mg/dL Estimated GFR 27 L (>89) mL/min POC Glucose (68-110) mg/dl Random Glucose 190 H (74-106) mg/dL Troponin I (0.02-0.05) ng/mL Short CBC 08/27/18 08/28/18 Range/Units 21:36 04:24 WBC 7.7 (4.0-11.0) th/mm3 Hgb 9.0 L 9.8 L (13.0-17.0) gm/dL Hct 26.2 L 28.4 L (39.0-51.0) % Plt Count 226 (150-450) th/mm3 [facility] 08/28/18 04:24 Sodium 141 Potassium 4.7 Chloride 106 Carbon Dioxide 27.1 BUN 30 H Creatinine 2.29 H Calcium 8.9 Cardiac Enzymes 08/27/18 08/28/18 Range/Units 21:36 04:24 Troponin I 1.15 H* 1.93 H* (0.02-0.05) ng/mL Liver Function 08/28/18 Range/Units 04:24 Total Bilirubin 0.7 (0.2-1.0) mg/dL AST 26 (15-37) U/L ALT 22 (12-78) U/L Alkaline Phosphatase 77 (45-117) U/L Albumin 3.4 (3.4-5.0) g/dL <Wu Garza - 08/28/18 17:21> Abnormal lab results 08/27/18 08/27/18 08/27/18 Range/Units 14:19 14:19 14:19 RBC 2.95 L (4.50-5.90) mil/mm3 Hgb 9.5 L (13.0-17.0) gm/dL Hct 26.6 L (39.0-51.0) % Neut % (Auto) 80.3 H (16.0-70.0) % Lymph % (Auto) (9.0-44.0) % Lymph # (Auto) 0.8 L (1.0-4.8) th/mm3 ABG pH (7.380-7.420) ABG pCO2 (38-42) mmHg ABG Base Excess (-2-2) mmol/L BUN 29 H (7-18) mg/dL Creatinine 2.11 H (0.60-1.30) mg/dL Estimated GFR 30 L (>89) mL/min POC Glucose (68-110) mg/dl Random Glucose 123 H (74-106) mg/dL Troponin I 1.39 H* (0.02-0.05) ng/mL B-Natriuretic Peptide 680 H (0-100) pg/mL Albumin 3.3 L (3.4-5.0) g/dL 08/27/18 08/27/18 08/28/18 Range/Units 21:36 21:36 01:41 RBC (4.50-5.90) mil/mm3 Hgb 9.0 L (13.0-17.0) gm/dL Hct 26.2 L (39.0-51.0) % Neut % (Auto) (16.0-70.0) % Lymph % (Auto) (9.0-44.0) % Lymph # (Auto) (1.0-4.8) th/mm3 ABG pH (7.380-7.420) ABG pCO2 (38-42) mmHg ABG Base Excess (-2-2) mmol/L BUN (7-18) mg/dL Creatinine (0.60-1.30) mg/dL Estimated GFR (>89) mL/min POC Glucose 141 H (68-110) mg/dl Random Glucose (74-106) mg/dL Troponin I 1.15 H* (0.02-0.05) ng/mL B-Natriuretic Peptide (0-100) pg/mL Albumin (3.4-5.0) g/dL 08/28/18 08/28/18 08/28/18 Range/Units 02:51 04:24 04:24 RBC 3.15 L (4.50-5.90) mil/mm3 Hgb 9.8 L (13.0-17.0) gm/dL Hct 28.4 L (39.0-51.0) % Neut % (Auto) 89.9 H (16.0-70.0) % Lymph % (Auto) 5.5 L (9.0-44.0) % Lymph # (Auto) 0.4 L (1.0-4.8) th/mm3 ABG pH 7.31 L (7.380-7.420) ABG pCO2 46 H (38-42) mmHg ABG Base Excess -3.2 L (-2-2) mmol/L BUN (7-18) mg/dL Creatinine (0.60-1.30) mg/dL Estimated GFR (>89) mL/min POC Glucose (68-110) mg/dl Random Glucose (74-106) mg/dL Troponin I 1.93 H* (0.02-0.05) ng/mL B-Natriuretic Peptide (0-100) pg/mL Albumin (3.4-5.0) g/dL 08/28/18 Range/Units 04:24 RBC (4.50-5.90) mil/mm3 Hgb (13.0-17.0) gm/dL Hct (39.0-51.0) % Neut % (Auto) (16.0-70.0) % Lymph % (Auto) (9.0-44.0) % Lymph # (Auto) (1.0-4.8) th/mm3 ABG pH (7.380-7.420) ABG pCO2 (38-42) mmHg ABG Base Excess (-2-2) mmol/L BUN 30 H (7-18) mg/dL Creatinine 2.29 H (0.60-1.30) mg/dL Estimated GFR 27 L (>89) mL/min POC Glucose (68-110) mg/dl Random Glucose 190 H (74-106) mg/dL Troponin I (0.02-0.05) ng/mL B-Natriuretic Peptide (0-100) pg/mL Albumin (3.4-5.0) g/dL Short CBC 08/27/18 08/27/18 08/28/18 Range/Units 14:19 21:36 04:24 WBC 7.6 7.7 (4.0-11.0) th/mm3 Hgb 9.5 L 9.0 L 9.8 L (13.0-17.0) gm/dL Hct 26.6 L 26.2 L 28.4 L (39.0-51.0) % Plt Count 229 226 (150-450) th/mm3 BMP 08/27/18 08/28/18 14:19 04:24 Sodium 142 141 Potassium 4.1 4.7 Chloride 106 106 Carbon Dioxide 27.0 27.1 BUN 29 H 30 H Creatinine 2.11 H 2.29 H Calcium 9.1 8.9 Cardiac Enzymes 08/27/18 08/27/18 08/28/18 Range/Units 14:19 21:36 04:24 Total Creatine Kinase 92 (39-308) U/L Troponin I 1.39 H* 1.15 H* 1.93 H* (0.02-0.05) ng/mL Liver Function 08/27/18 08/28/18 Range/Units 14:19 04:24 Total Bilirubin 0.6 0.7 (0.2-1.0) mg/dL AST 20 26 (15-37) U/L ALT 20 22 (12-78) U/L Alkaline Phosphatase 76 77 (45-117) U/L Albumin 3.3 L 3.4 (3.4-5.0) g/dL <Kenneth Salazar III - 08/28/18 14:23> - Imaging Impressions Chest X-Ray 08/28/18 02:01 CONCLUSION: New bilateral alveolar opacities most characteristic of pulmonary edema. This may indicate congestive heart failure or fluid overload. <Wu Garza K - 08/28/18 17:21> Impressions Chest X-Ray 08/27/18 14:13 CONCLUSION: Cardiomegaly and chronic appearing interstitial changes. No acute abnormality. Chest X-Ray 08/28/18 02:01 CONCLUSION: New bilateral alveolar opacities most characteristic of pulmonary edema. This may indicate congestive heart failure or fluid overload. <Kenneth Salazar III - 08/28/18 14:23> Physical Exam Vital signs: Vital Signs 08/27/18 18:01 08/27/18 18:41 08/27/18 20:00 Temperature 97.7 F Pulse Rate 93 H 77 78 Respiratory Rate 21 18 20 Blood Pressure 144/64 H 137/66 123/73 Pulse Oximetry 97 97 97 08/28/18 00:00 08/28/18 02:45 08/28/18 03:00 Temperature 97.6 F 97.7 F Pulse Rate 84 82 Respiratory Rate 20 24 Blood Pressure 123/73 140/65 Pulse Oximetry 97 91 L 99 08/28/18 03:02 08/28/18 04:00 08/28/18 04:41 Temperature 97.7 F Pulse Rate 104 H 77 Respiratory Rate 22 20 Blood Pressure 128/61 Pulse Oximetry 100 100 08/28/18 08:00 08/28/18 08:48 Temperature Pulse Rate Respiratory Rate 20 Blood Pressure Pulse Oximetry 98 Intake & Output 08/27/18 08/28/18 08/28/18 18:59 06:59 18:59 Intake Total 0 / 0 315 / 315 Output Total 1000 / 1000 Balance -1000 / -1000 315 / 315 Weight 111.13 kg 113.5 kg Intake: IV 15 / 15 Heparin/NS PF Inj 1,500 ML @ 0 15 / 15 mls/hr .ROUTE .[facility] Rx#: [id number] Oral 0 / 0 Anesthesia Amount 300 / 300 Output: Urine 1000 / 1000 Other: # Voids 1 <Wu Garza K - 08/28/18 17:21> Vital Signs 08/27/18 14:16 08/27/18 15:58 08/27/18 18:01 Temperature Pulse Rate 69 77 93 H Respiratory Rate 21 21 Blood Pressure 119/76 144/64 H Pulse Oximetry 98 95 97 08/27/18 18:41 08/27/18 20:00 08/28/18 00:00 Temperature 97.7 F 97.6 F Pulse Rate 77 78 84 Respiratory Rate 18 20 20 Blood Pressure 137/66 123/73 123/73 Pulse Oximetry 97 97 97 08/28/18 02:45 08/28/18 03:00 08/28/18 03:02 Temperature 97.7 F Pulse Rate 82 104 H Respiratory Rate 24 22 Blood Pressure 140/65 Pulse Oximetry 91 L 99 08/28/18 04:00 08/28/18 04:41 08/28/18 08:00 Temperature 97.7 F Pulse Rate 77 Respiratory Rate 20 20 Blood Pressure 128/61 Pulse Oximetry 100 100 08/28/18 08:48 Temperature Pulse Rate Respiratory Rate Blood Pressure Pulse Oximetry 98 Intake & Output 08/27/18 08/28/18 08/28/18 18:59 06:59 18:59 Intake Total 0 / 0 300 / 300 Output Total 1000 / 1000 Balance -1000 / -1000 300 / 300 Weight 111.13 kg 113.5 kg Intake: Oral 0 / 0 Anesthesia Amount 300 / 300 Output: Urine 1000 / 1000 Other: # Voids 1 <Kenneth Salazar III H - 08/28/18 14:23> Narrative: GENERAL: Pleasant elderly male breathing comfortably with partial rebreather and speaking in partial sentences. SKIN: No rashes. Cool and dry. HEAD: Atraumatic. Normocephalic. EYES: No scleral icterus. No injection or drainage. ENT: Nose without drainage. CARDIOVASCULAR: Regular rate and rhythm. No murmur appreciated. No gallops or rubs. RESPIRATORY: Clear to auscultation. Breath sounds equal bilaterally. Mild crackles in left lung base. ABDOMEN: Abdomen soft, non-tender, without guarding. Diastasis recti. Positive bowel sounds. MUSCULOSKELETAL: Extremities without clubbing, cyanosis; LE edema improved. No calf tenderness. NEUROLOGICAL: Awake and alert. Motor and sensory grossly within normal limits. Moves all extremities without difficulty. Normal speech. 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 Status: Acute (7) GERD (gastroesophageal reflux disease) Code(s): K21.9 - Gastro-esophageal reflux disease without esophagitis Status: Acute (8) Diabetes Code(s): E11.9 - Type 2 diabetes mellitus without complications Status: Acute (9) Enlarged prostate Code(s): N40.0 - Benign prostatic hyperplasia without lower urinary tract symptoms Status: Acute (10) Anemia Code(s): D64.9 - Anemia, unspecified Status: Acute (11) Hx of CABG Code(s): Z95.1 - Presence of aortocoronary bypass graft Status: Acute <Wu Garza - 08/28/18 17:21> (1) Unstable angina Code(s): I20.0 - Unstable angina Status: Acute Plan: Patient with a significant cardiac history s/p CABGx5 and recent cardiac catheterization procedure who has chest pain and shortness of breath. EKG showed a sinus rhythm with RBBB. -Consult Dr. Quinones, interventional cardiology appreciate recs -Elevated Troponins 1.39->1.93 -Continue Brilinta 90 mg BID until cleared by cardiology to hold for GI procedure -Continue amlodipine 2.5mg daily -Continue aspirin 81 mg -Continue Isosorbide Mononitrate 60 mg PO daily -Continue nitroglycerin 0.4 mg SL Q5 min PRN -Continue metoprolol 50 mid BID -Heart cath today following EGD (2) GI bleed Code(s): K92.2 - Gastrointestinal hemorrhage, unspecified Status: Acute Plan: Patient with a 3 day history of black stools. His hemoglobin is stable at 9.5. Patient reports that his hemoglobin has been in this range for some time. - Consult GI--appreciate recs * N.p.o.-May advance to clear liquid diet if stable * Monitor hemoglobin and hematocrit * Monitor for active bleeding * Pantoprazole-PPI * Patient will need upper endoscopy-will require cardiac clearance * Anticoagulants as per attending and cardiology * Supportive care - NPO until EGD and cath complete today - Will transfuse patient if hemoglobin less than 7 or he becomes symptomatic (3) Hypertension Code(s): I10 - Essential (primary) hypertension Status: Acute Plan: Stable with current regimen. Continue home amlodipine and metoprolol. (4) Chronic kidney disease Code(s): N18.9 - Chronic kidney disease, unspecified Status: Acute Plan: Patient with known CKD. Creatinine @ 2.11->2.29 -Held IVF due to fluid overload requiring Lasix and Halicat overnight; more comfortable this morning -Will discontinue fluids following EGD and cath -BMP this evening -Will continue to monitor -Avoid nephrotoxic medications (5) History of CVA (cerebrovascular accident) Code(s): Z86.73 - Personal history of transient ischemic attack (TIA), and cerebral infarction without residual deficits Status: Acute Plan: Patient has no neurological deficits from CVA in 2013. 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 Latham. (7) GERD (gastroesophageal reflux disease) Code(s): K21.9 - Gastro-esophageal reflux disease without esophagitis Status: Acute Plan: -Continue pantoprazole 40 mg daily (8) Diabetes Code(s): E11.9 - Type 2 diabetes mellitus without complications Status: Acute Plan: Patient is not on home medications based on home medication lists. He reports that he is a diabetic. -low dose sliding scale insulin (9) Enlarged prostate Code(s): N40.0 - Benign prostatic hyperplasia without lower urinary tract symptoms Status: Acute Plan: -Continue tamsulosin (10) Anemia Code(s): D64.9 - Anemia, unspecified Status: Acute Plan: patient has a history of anemia with hemoglobins around 9.0. -Monitor (11) Hx of CABG Code(s): Z95.1 - Presence of aortocoronary bypass graft Status: Acute Plan: CABGx5 2008 <Kenneth Salazar III - 08/28/18 14:05> - Assessment and Plan Fluids: NPO and will get IVF for EGD and cath today. Will monitor kidney function. Electrolytes: Will monitor and replete as needed. Nutrition: NPO until after procedures Pt SDW Nila Garza and Nate <Kenneth Salazar III - 08/28/18 14:23> - Attending Attestation The exam, history, and the medical decision-making described in the above note were completed with the assistance of the resident physician. I reviewed and agree with the findings presented. I attest that I had a [id number] encounter with the patient on the same day, and personally performed and documented my assessment and findings in the medical record. Noted event overnight with respiratory decompensation likely from evolving NSTEMI. Discussed with residents overnight by phone. 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 he did not tolerate extubation after the procedure and was reintubated. he is receiving IVF post cath now. appreciate vent management by paper box cutter. Had discussion with patient and about care goals this AM, and informed them of the considerable risk of these procedures today of need for mechanical ventilation, poor neurologic outcomes and even . They understood and were willing to proceed. Patient did mention that he would not want a prolonged intubation period but ok with initial. <Wu Garza - 08/28/18 17:21>
[2018-08-28] MEDS ORDERED: Misc Info for Pharmacy OTHER STA (15:30)
--- NOTE | 2018-08-28 15:36 | CATHPROC ---
[facility] HIS Report Study Information Study Number Admission Scheduled Start Study Start [id number] Aug 27 2018 4:07PM 08/28/2018 Aug 28 2018 12:31PM [facility] Electrophysiology Study Admit Source Facility Department Other [facility] - Electroplater Apprentice Physician and Clinical Staff Initial Young Azevedo Hairspring I Inspector Christiano Mcmahon,SHERMAN Hairspring I Inspector Danyel OsheaRN Recorder Jose Alberto Jin,RT(R) Scrub Tati, Ashley,KINDERGARTEN TEACHER ASSISTANT TECH2 Procedures Performed Procedure Location (Site) Vessel Name Coronary Angiograms LCA Left Coronary Drug Eluting Inflatio CIRC Ost CIRC Drug Eluting Inflatio LAD Ost Left Coronary IVUS Lft Main Left Coronary L Heart Cath Pacemaker Temp Fem Vein (right) Femoral Vein PTCA CIRC Ost CIRC PTCA LAD Ost Left Coronary PTCA Lft Main Left Coronary Wire insertion Fem Art (right) Femoral Art Equipment Time Grocery Packer Description Size Mfg Part Number Used/Scraped WIRE, BALANCE MIDDLEWEIGHT [id number] 13:56 [employer] 190CM Used 190CM *[id number] WIRE, BALANCE MIDDLEWEIGHT [id number] 14:16 [employer] 190CM Used 190CM *[id number] 13:39 COLIN PAITNO PACING CATHETER STRAIGHT TIP FR 5 Used *[id number] TRANSDUCER, TRUWAVE [id number] 12:38 COLIN PATINO * Used W/STOCKCOCK *[id number] 13:51 [employer]OSTON [employer] CATHETER, FR1.5 ROTA-LINK FR 1.5 Used *[id number] 13:26 [employer] WIRE, ROTA-WIRE FLOPPY 330CM 330CM Used *[id number] *[id number] WIRE, HYDROSTEER 150CM [id number] 13:16 DAIG/ST. [employer] 150CM Used ANGLED GLIDE *[id number] 12:38 Vyatta BLANKET,WARM AIR CCL * Used *[id number] [id number] 12:38 Vyatta PACK, CCL CUSTOM * Used *[id number] 12:38 [employer] PACER PEN, SKIN DUAL W/ RULER * Used *[id number] 14:44 MEDTRONIC BALLOON, 3.0 X 15MM EUPHORA 15MM Used *[id number] BALLOON, 3.0 X 15MM NC [id number] 14:07 MEDTRONIC 15MM Used EUPHORA *[id number] BALLOON, 3.5 X 12MM NC [id number] 14:58 MEDTRONIC 12MM Used EUPHORA *[id number] [id number] 14:55 MEDTRONIC STENT, 3.0 8MM NINA 3.0 8MM Used *5886980 [id number] 14:30 MEDTRONIC STENT, 3.5 15MM NINA 3.5 15MM Used *[id number] [id number] 14:43 [employer] One's [employer] Me (NOOM) MEDICAL 30 KAIN INDEFLATOR Used *[id number] [id number] 13:03 MERIT [employer]ICAL 30 KAIN INDEFLATOR Used *[id number] 12:38 Test[employer]ant SHEATH, FR6.5 PRELUDE 11CM FR 6.5 038ACT Used *1393417 [id number] 12:38 Test[employer]ant WIRE, 3MMJ .035 180CM 180CM Used *2963719 [id number] 12:38 NAMIC MANIFOLD, 4 PORT * Used *[id number] 12:38 NYCOMED OMNIPAQUE, 350 MG, 150ML 150ML [id number] Used [id number] 13:03 TERUMO MEDICAL SHEATH, FR7 TERUMO (10CM) FR 7 Used *[id number] WIRE, RUNTHROUGH NS FLOPPY [id number] 13:48 TERUMO MEDICAL 180CM Used .014 180CM *[id number] WIRE, RUNTHROUGH NS FLOPPY 25-1011 14:37 TERUMO MEDICAL 180CM Used .014 180CM *[id number] CATHETER, NOORVIK EYE NAVAJO [id number] 13:55 VOLCANO Used IMAGING *[id number] Equipment Model, Serial, Lot Number and Expiration Data Description Model Number Serial Number Lot Number Expiration Date CATHETER, NOORVIK EYE NAVAJO [id number] 03-14-2020 IMAGING STENT, 3.0 8MM NINA [id number] 02-11-2020 STENT, 3.5 15MM NINA [id number] 07-26-2020 WIRE, HYDROSTEER 150CM [id number] 01-12-2021 ANGLED GLIDE WIRE, ROTA-WIRE FLOPPY 330CM [id number] 05-31-2019 History: Current Medications Medication Dosage/Unit Route Frequency Last Date/Time Taken JAVID KOWALSKIILLINGEORGE History: Allergies Allergy Reaction No Known Allergies History: Risk Factors Family History of Hypertension Dyslipidemia Previous NM Previous Heart Failure Premature CAD Yes No No No No Prior Valve Prior PCI Prior PCIDate Prior CABG Surgery No Yes 08/26/2018 No Cerebrovascular Peripheral Artery Chronic Lung On Dialysis Diabetes Disease Disease Disease No No Yes Yes No History: CV Disease Selection Items Known CAD History: Stress Tests Stress or Imaging Studies Performed No History: Other Disease Selection Items CAD COPD HTN History: Other Current Smoker No Labs Hgb (g/dl) Hct (%) RBC (MIL/MM3) WBC (l/cumm) Platelets (thousands) 11.60-17.00 35.00-51.00 4.00-5.90 4.00-11.00 150.00-450.00 9.8 28.4 3.1 7.7 226 Glucose (mg/dl) BUN (mg/dl) Creatinine (mg/dl) BUN:Creatinine (1:x) 74.00-106.00 7.00-18.00 0.50-1.30 10.00-20.00 141 30 2.3 13 Na (meq/l) K (meq/l) Cl (meq/l) CO2 (mmol/L) Ca (mg/dl) 136.00-145.00 3.50-5.10 98.00-107.00 21.00-32.00 8.50-10.10 141 4.7 106 27.1 8.9 PT (sec) PTT (sec) INR (PTT:PT) 9.80-11.60 24.30-30.10 0.90-1.10 10.4 27.8 1 Troponin I (ng/ml) CPK (u/l) CPK-MB (ng/ML) 0.02-0.05 26.00-308.00 0.50-3.60 1.93 92 Not Drawn Medication Medication Total Dose (Bolus/Oral) Medication Total Dosage/Unit 1% XYLOCAINE 20 mL ANGIOMAX BOLUS 17 mL PROPOFOL 0 mg VERSED 4 mg Medications (Bolus/Oral) Medication Time Given Dosage/Unit Administered By Reason 08/28/2018 12:42:56 PROPOFOL 0 mg PM Patient arrived on 0 mg PROPOFOL via Peripheral IV. 1% XYLOCAINE 08/28/2018 1:08:05 PM 20 mL Patient arrived on 20 mL 1% XYLOCAINE via Subcutaneous. VERSED 08/28/2018 1:18:53 PM 2 mg Dorie, Danyel 2 mg VERSED given in lab by Danyel Oshea RN in Right Antecubital via Peripheral IV. ANGIOMAX BOLUS 08/28/2018 1:28:18 PM 17 mL Dorie, Danyel 17 mL ANGIOMAX BOLUS given in lab by Danyel Oshea RN in Left Antecubital via Peripheral IV. VERSED 08/28/2018 1:36:01 PM 2 mg Dorie, Danyel 2 mg VERSED given in lab by Danyel Oshea RN in Right Antecubital via Peripheral IV. Medication (Drip) Medication Time Given Dosage/Unit Concentration/Unit Diluent (ml) Solution ANGIOMAX DRIP 08/28/2018 1:30:34 PM 1.75 mg/kg/hr 250 mg 50 NaCl .9 1.75 mg/kg/hr ANGIOMAX DRIP given in lab by Danyel Oshea RN in Left Antecubital via Peripheral IV. P ump/Drip Flow = 39.72 ml/hr using NaCl .9 with a concentration of 250 mg in 50 ml. 08/28/2018 12:42:34 IV Solutions 0 mL (IV) 1000 NaCl .9 PM Patient arrived on IV Solutions in Right Antecubital via Peripheral IV. Pump/Drip Flow = 20 ml/hr usi ng NaCl .9. Initial Case Assessment Cardiovascular HR Rhythm NIBP 77 Sinus 143/77 Edema Present Skin color Skin None Normal Warm Dry Circulatory - Right Pulses Dorsalis Pedis Femoral 1 2 Scale (0,1,2,3,4,d) Circulatory - Left Pulses Dorsalis Pedis Femoral 2 2 Scale (0,1,2,3,4,d) Neurological State Unresponsive Respiration - General Respiration Rate SpO2 (%) (B/min) 17 100 Respiration - Ventilator Type Intubation Type ET(oral) Final Case Assessment Cardiovascular HR Rhythm NIBP 66 Sinus 131/70 Edema Present Skin color Skin None Normal Warm Dry Circulatory - Right Pulses Dorsalis Pedis Femoral 2 2 Scale (0,1,2,3,4,d) Circulatory - Left Pulses Dorsalis Pedis Femoral 1 2 Scale (0,1,2,3,4,d) Neurological State Unresponsive Respiration - General Respiration Rate SpO2 (%) (B/min) 15 100 Respiration - Ventilator Type Intubation Type ET(oral) Chronological Log Time Study Chronological Log 12:25:32 Patient arrived via Bed. 12::42 Patient Name, D.O.B, / Armband Verified By R.N. 12::48 Consent signed by the physician and the patient and verified by the Electroplater Apprentice staff. 12:32:02 Verbal Stimulation=2 Physical Stimulation=2 Airway=2 Respiration=2 TOTAL=8. (0=absent, 1=li mited, 2=present) 12:33:45 Patient has been NPO for More than 6Hrs. Skin Breakdown-none 12:33:48 Vitals capture started with the following parameters, Patient=Adult, Interval=5 min, Initial Pr xprqak=043 mmHg, 12:37:03 Deflation Rate=5 mmHg, Cuff placed on Left Arm 12:38:09 HR=95 bpm, OSUQ=066/77 mmhg, PlM8=134.0 %, Resp=10 B/min, Pain=0, Khushbu=4, Shelton=2 12:41:34 Reference ECG taken 12:42:12 A # 20 IV was noted in the Antecubital (right). Grade = 0 12:42:34 Patient arrived on IV Solutions in Right Antecubital via Peripheral IV. Pump/Drip Flow = 20 ml/hr using NaCl .9. 12:42:41 HR=92 bpm, QKQT=443/93 mmhg, QxX4=602.0 %, Resp=24 B/min, Pain=0, Khushbu=4, Shelton=2 12:42:56 Patient arrived on 0 mg PROPOFOL via Peripheral IV. 12:46:08 History and physical on the chart or being dictated. Assessment: Initial Case, HR=77 BPM, Rhythm=Sinus, DPQI=863/77 mmhg, Edema=None, Color=Normal, Skin = Warm, Dry Right Pulses: Real Ped=1, Femoral=2 12:46:09 Left Pulses: Real Ped=2, Femoral=2 Neurological: State=Unresponsive Respiration: Resp=17 B/min, EzW3=958 %, Type=ET(Oral) 12:47:48 HR=76 bpm, YJGO=015/66 mmhg, QtN2=176.0 %, Resp=15 B/min, Pain=0, Khushbu=4, Shelton=2 12:51:41 Bilateral groins prepped with 2% chlorhexidine, and draped after a 3 minute waiting time. 12:52:01 MD arrived. 12:52:45 UT=143 bpm, WSKI=819/71 mmhg, YaA8=185.0 %, Resp=35 B/min, Pain=0, Khushbu=4, Shelton=2 12:57:42 HR=74 bpm, FKEA=438/72 mmhg, SpO2=93.0 %, Resp=12 B/min, Pain=0, Khushbu=4, Shelton=2 12:59:49 Pressure channel 1 zeroed. 13:02:46 HR=75 bpm, QZVR=400/63 mmhg, SpO2=99.0 %, Resp=21 B/min, Pain=0, Khushbu=4, Shelton=2 Time Out. Correct patient, correct procedure, correct physician, labs, allergies, and equipment verified with ammunition assembly ii laborer 13:06:47 team present. Fire risk assesment completed (see hard stop sheet for coding). Time Out Conc urred by MD and individual staff in procedure. 13:07:06 Case Start 13:07:47 HR=68 bpm, UOXB=807/67 mmhg, IsU8=487.0 %, Resp=13 B/min 13:08:05 Patient arrived on 20 mL 1% XYLOCAINE via Subcutaneous. 13:09:15 Access site was Right Femoral Artery. 13:09:26 A SHEATH, FR6.5 PRELUDE 11CM FR 6.5 was advanced into the Fem Art (right) using the Percuta neous technique. 13:13:24 HR=73 bpm, RUEV=596/70 mmhg, SpO2=0.0 %, Resp=12 B/min, Pain=0, Khushbu=4, Shelton=2 13:13:57 A SHEATH, FR6.5 PRELUDE 11CM FR 6.5 was advanced into the Fem Art (right) using the Percuta neous technique. 13:17:45 HR=72 bpm, MEXM=681/78 mmhg, Resp=16 B/min, Pain=0, Khushbu=4, Shelton=2 13:18:53 2 mg VERSED given in lab by Danyel Oshea, RN in Right Antecubital via Peripheral IV. A XB 4.0 GUIDE CATHETER FR 7 was advanced over a wire. OMNIPAQUE, 350 MG, 150ML 150ML was used for 13:19:36 injections. 13:22:50 HR=69 bpm, SGJU=809/65 mmhg, ItF6=153.0 %, Resp=18 B/min, Pain=0, Khushbu=4, Shelton=2 13:27:15 A WIRE, ROTA-WIRE FLOPPY 330CM 330CM was inserted via Fem Art (right). 13:27:47 HR=71 bpm, AVRO=301/69 mmhg, JkO1=201.0 %, Resp=12 B/min, Pain=0, Khushbu=4, Shelton=2 13:28:18 17 mL ANGIOMAX BOLUS given in lab by Danyel Oshea RN in Left Antecubital via Peripheral IV . 1.75 mg/kg/hr ANGIOMAX DRIP given in lab by Danyel Oshea RN in Left Antecubital via Peripheral IV. Pump/Drip Flow 13:30:34 = 39.72 ml/hr using NaCl .9 with a concentration of 250 mg in 50 ml. 13:31:02 Interventional wire has crossed the lesion 13:32:44 Access site was Right Femoral Vein. 13:32:48 HR=67 bpm, STJZ=186/73 mmhg, OhV1=534.0 %, Resp=13 B/min, Pain=0, Khushbu=4, Shelton=2 A PACING CATHETER STRAIGHT TIP FR 5 was advanced to the right ventricle. Rate = 50, Output = ~O UTPUT~, MA = 13:35:41 5. 13:36:01 2 mg VERSED given in lab by Danyel Oshea RN in Right Antecubital via Peripheral IV. 13:37:51 HR=67 bpm, ZKGJ=015/70 mmhg, Resp=8 B/min, Pain=0, Khushbu=4, Shelton=2 13:42:48 HR=70 bpm, XEDE=745/70 mmhg, VmL4=591.0 %, Resp=14 B/min, Pain=0, Khushbu=4, Shelton=2 13:44:32 An atherectomy catheter was inserted into the Lft Main. 13:45:35 Rotoblador in progress. 13:47:44 Rotablator removed. 13:47:49 HR=69 bpm, ECAZ=213/68 mmhg, Resp=11 B/min, Pain=0, Khushbu=4, Shelton=2 13:49:02 A WIRE, RUNTHROUGH NS FLOPPY .014 180CM 180CM was inserted via Fem Art (right). 13:52:48 HR=68 bpm, RJVW=361/62 mmhg, SpO2=99.0 %, Resp=10 B/min, Pain=0, Khushbu=4, Shelton=2 13:54:42 Interventional wire has crossed the lesion 13:57:49 HR=71 bpm, PILW=304/67 mmhg, XpN5=916.0 %, Resp=8 B/min, Pain=0, Khushbu=4, Shelton=2 13:58:01 A WIRE, BALANCE MIDDLEWEIGHT 190CM 190CM was inserted via Fem Art (right). 13:59:28 Interventional wire has crossed the lesion 13:59:30 Wire removed 14:01:39 An CATHETER, Style on Screen NAVAJO IMAGING was advanced through the lesion. Images saved onto IVUS hard drive 14:02:52 HR=70 bpm, QWWM=089/68 mmhg, Resp=8 B/min, Pain=0, Khushbu=4, Shelton=2 14:07:07 IVUS in progress using CATHETER, NOORVIK EYE NAVAJO IMAGING Mean Luminal Area measured ~EPIFANIO N LUMINAL~ 14:07:51 HR=67 bpm, ZOPX=374/66 mmhg, DqE0=891.0 %, Resp=10 B/min, Pain=0, Khushbu=4, Shelton=2 14:09:00 IVUS catheter removed A BALLOON, 3.0 X 15MM NC EUPHORA 15MM was inserted over WIRE, BALANCE MIDDLEWEIGHT 190CM 190CM via 14:09:21 the [facility] Main. 14:12:48 HR=68 bpm, YBSP=066/71 mmhg, Resp=19 B/min, Pain=0, Khushbu=4, Shelton=2 14:14:50 Balloon Removed. 14:17:50 A WIRE, BALANCE MIDDLEWEIGHT 190CM 190CM was inserted via Fem Art (right). 14:17:51 HR=68 bpm, KYUU=547/67 mmhg, HnJ3=133.0 %, Resp=16 B/min, Pain=0, Khushbu=4, Shelton=2 A BALLOON, 3.0 X 15MM NC EUPHORA 15MM was inserted over WIRE, BALANCE MIDDLEWEIGHT 190CM 190CM via 14:19:41 the Lft Main. A BALLOON, 3.0 X 15MM NC EUPHORA 15MM over a WIRE, BALANCE MIDDLEWEIGHT 190CM 190CM in the Lft Main 14:21:32 was inflated using a 30 KAIN INDEFLATOR at 20 kain for 26 sec. 14:22:54 HR=65 bpm, WPBB=299/63 mmhg, EeM7=273.0 %, Resp=8 B/min, Pain=0, Khushbu=4, Shelton=2 14:24:53 Balloon Removed. A BALLOON, 3.0 X 15MM NC EUPHORA 15MM was inserted over WIRE, RUNTHROUGH NS FLOPPY .014 180CM 1 80CM 14:24:54 via the Lft Main. A BALLOON, 3.0 X 15MM NC EUPHORA 15MM over a WIRE, RUNTHROUGH NS FLOPPY .014 180CM 180CM in the Lft 14:25:30 Main was inflated using a 30 KAIN INDEFLATOR at 20 kain for 25 sec. 14:26:36 Balloon Removed. 14:27:45 An CATHETER, NOORVIK EYE NAVAJO IMAGING was advanced through the lesion. Images saved onto IVUS hard drive 14:27:51 HR=68 bpm, QTZO=191/68 mmhg, UqD6=681.0 %, Resp=13 B/min, Pain=0, Khushbu=4, Shelton=2 14:28:46 IVUS in progress using CATHETER, NOORVIK EYE NAVAJO IMAGING Mean Luminal Area measured ~EPIFANIO N LUMINAL~ 14:29:41 IVUS catheter removed A STENT, 3.5 15MM NINA 3.5 15MM was advanced through a XB 4.0 GUIDE CATHETER FR 7 over a WIRE, BALANCE 14:31:28 MIDDLEWEIGHT 190CM 190CM. 14:32:52 HR=67 bpm, PHIZ=485/72 mmhg, SpO2=99.0 %, Resp=14 B/min, Pain=0, Khushbu=4, Shelton=2 A STENT, 3.5 15MM NINA 3.5 15MM was deployed using a 30 KAIN INDEFLATOR at 16 atmospheres for 14 seconds in 14:33:00 the LAD Ost. 14:33:49 Delivery device removed 14:38:30 HR=66 bpm, SQJF=482/67 mmhg, UmK1=820.0 %, Resp=6 B/min, Pain=0, Khushbu=4, Shelton=2 14:39:28 A WIRE, RUNTHROUGH NS FLOPPY .014 180CM 180CM was inserted via Fem Art (right). 14:41:29 Interventional wire has crossed the lesion 14:42:53 HR=65 bpm, SQRN=880/68 mmhg, UtO2=407.0 %, Resp=18 B/min, Pain=0, Khushbu=4, Shelton=2 14:47:56 HR=64 bpm, KIXH=858/68 mmhg, Resp=14 B/min, Pain=0, Khushbu=4, Shelton=2 A BALLOON, 3.0 X 15MM EUPHORA 15MM was inserted over WIRE, RUNTHROUGH NS FLOPPY .014 180CM 180C M via 14:51:17 the CIRC Ost. 14:52:55 HR=66 bpm, RQTR=893/66 mmhg, SpO2=96.0 %, Resp=10 B/min, Pain=0, Khushbu=4, Shelton=2 A BALLOON, 3.0 X 15MM EUPHORA 15MM over a WIRE, RUNTHROUGH NS FLOPPY .014 180CM 180CM in the CI RC Ost 14:53:08 was inflated using a 30 KAIN INDEFLATOR at 8 kain for 25 sec. 14:54:59 Balloon Removed. 14:57:56 HR=64 bpm, NONJ=163/64 mmhg, SjE8=536.0 %, Resp=13 B/min, Pain=0, Khushbu=4, Shelton=2 A STENT, 3.0 8MM NINA 3.0 8MM was advanced through a XB 4.0 GUIDE CATHETER FR 7 over a WIRE, RU NTHROUGH 14:58:46 NS FLOPPY .014 180CM 180CM. A STENT, 3.0 8MM NINA 3.0 8MM was deployed using a 30 KAIN INDEFLATOR at 12 atmospheres for 25 s econds in the 15:00:50 CIRC Ost. 15:02:55 HR=65 bpm, LCQF=533/69 mmhg, SpO2=96.0 %, Resp=12 B/min, Pain=0, Khushbu=4, Shelton=2 15:07:16 Re-inflated the stent balloon in the CIRC Ost to 12 KAIN for 45 seconds. A BALLOON, 3.5 X 12MM NC EUPHORA 12MM over a WIRE, RUNTHROUGH NS FLOPPY .014 180CM 180CM in the LAD 15:07:32 Ost was inflated using a 30 KAIN INDEFLATOR at 14 kain for 45 sec. 15:07:56 HR=66 bpm, RTII=997/65 mmhg, SpO2=97.0 %, Resp=15 B/min, Pain=0, Khushbu=4, Shelton=2 15:08:35 Balloon Removed. 15:08:38 Delivery device removed 15:09:35 The LCA was injected and visualized at various angles. OMNIPAQUE, 350 MG, 150ML 150ML used . 15:10:42 Wire removed 15:10:43 Wire removed 15:11:46 Catheter was removed 15:12:12 Temp pacer removed. 15:13:02 An injection in the Fem Art (right) was made through the SHEATH, FR6.5 PRELUDE 11CM FR 6.5. 15:13:28 HR=64 bpm, HYNR=123/66 mmhg, Resp=16 B/min, Pain=0, Khushbu=4, Shelton=2 15:13:40 Case End (Physician broke scrub) 15:13:52 Catheter(s) removed without difficulty 15:13:55 Sheath(s) left in place, will be removed in Holding Area 15:14:07 No case complications noted. 15:14:13 Bedside Report will be given. 15:14:16 Implantable Device card placed in patient's chart. 15:14:28 A Left Heart Cath was performed. 15:14:46 In the Fem Art (right) the SHEATH, FR6.5 PRELUDE 11CM FR 6.[address] by Ashley Duffy RCIS TECH2. 15:14:53 In the Fem Vein (right) the SHEATH, FR7 TERUMO (10CM) FR [address] by Ashley Duffy RCIS TECH2. 15:17:15 Sterile dressing applied to site 15:17:16 No case complications noted. 15:17:18 Cine recording checked. 15:17:56 HR=64 bpm, NADU=255/70 mmhg, OlO9=245.0 %, Resp=16 B/min, Pain=0, Khushbu=4, Shelton=2 15:19:50 Bedside Report will be given. 15:19:58 Implantable Device card placed in patient's chart. 15:20:03 A Left Heart Cath was performed. Assessment: Final Case, HR=66 BPM, Rhythm=Sinus, VUPC=957/70 mmhg, Edema=None, Color=Normal, S kin = Warm, Dry Right Pulses: Real Ped=2, Femoral=2 15:20:20 Left Pulses: Real Ped=1, Femoral=2 Neurological: State=Unresponsive Respiration: Resp=15 B/min, IrH4=202 %, Type=ET(Oral) 15:22:57 HR=66 bpm, YPCH=378/71 mmhg, RhX4=379.0 %, Resp=17 B/min, Pain=0, Khushbu=4, Shelton=2 15:28:00 HR=63 bpm, SASE=212/63 mmhg, EcG0=807.0 %, Resp=9 B/min, Pain=0, Khushbu=4, Shelton=2 15:31:11 Patient moved to stretcher 15:33:01 RCOA=538/62 mmhg, Pain=0, Khushbu=4, Shelton=2 15:33:51 Vitals capture stopped. End Study - Contrast Media Used In Study Contrast Total Opened (mL) Total Used (mL) Total Wasted (mL) Omnipaque 150 125 25 End Study - Maximum Contrast Load Max Contrast Load (mL) 246.7 End Study - Radiation Exposure Fluoro Time (minutes) 32.9 End Study - Patient Disposition Complications Transferred To Interventional Outcome No Critical Care Bed successful
--- NOTE | 2018-08-28 15:55 | MA ---
cc: Young Quinones MD DATE: 08/28/2018 PROCEDURE PERFORMED: Left coronary angiography, rotational atherectomy of the left main and proximal LAD, stenting of the left main into the LAD, stenting of the ostium of the left circumflex artery, temporary pacemaker placement. DESCRIPTION OF PROCEDURE: The patient was brought to the cardiac catheterization lab in a fasting state, intubated. The right groin was prepped and draped in sterile fashion. Using 1% lidocaine for local anesthesia, a 7-Moroccan sheath was inserted in the right femoral artery using a micropuncture set and a 6-Moroccan sheath inserted in the right femoral vein. A 7-Moroccan XB4 guiding catheter was used to engage the left main. A 5-Moroccan balloon-tipped pacemaker was then positioned in the right ventricle with backup pacing initiated. I then wired the left main LAD with a Rota floppy wire. Rotational atherectomy was performed with a 1.5 mm artem. I then tried to do IVUS but was unable to pass the IVUS catheter either into the LAD or into the circumflex. I then predilated the left main LAD with a 3.0 noncompliant balloon. I used the same balloon to predilate the ostium of the circumflex artery. I then stented from the ostium of the left main into the proximal LAD utilizing a 3.5 x 15 mm Raul at 16 atmospheres. Angiography now demonstrated significant plaque shift into the ostium of the circumflex artery. I rewired the circumflex and took the old wire out. I then predilated the ostium of the circumflex with a 3.0 mm balloon and then stented it with a 3.0 x 8 mm Raul, which was deployed at 12 atmospheres. Kissing balloon inflations were then performed with a 3.5 x 12 mm noncompliant balloon in the LAD and the same delivery balloon in the circumflex. These were inflated at 12 atmospheres in the circumflex and 14 atmospheres in the LAD. Angiography now demonstrates an excellent result in the left main ostium of the LAD and ostium of the circumflex. 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 There was ERIK 3 flow in both the circumflex and LAD at the end of the case. The patient tolerated the procedure well. There was no hypotension during the case. There was no bradycardia. At the end of the case, the guiding catheter and temporary pacer were removed. I took an angiogram of the arterial sheath and there is either spasm or stenosis right where the sheath enters the artery and so I chose not to use a closure device and the sheath will be pulled manually. The patient is being loaded with 180 of Brilinta through his NG tube and will be moved up to ICU. He will have to receive some fluids for the contrast load and then hopefully we can get him off the ventilator soon. MD MESSI Duarte/carolyn , 03:26 PM , 03:34 PM
[2018-08-28] MEDS: Sod Chloride 0.9% Inj 1,000 ML IV.CONT SCH (17:13)
[2018-08-28] MEDS ORDERED: fentaNYL 10 mcg/mL Premix Drip 2,500 MCG/250 ML BAG IV.SIG PRN (17:15)
[2018-08-28] MEDS ORDERED: fentaNYL Citrate Inj 100 MCG/2 ML Ampul IV.PUSH PRN (17:15)
--- NOTE | 2018-08-28 17:33 | P.PNCC ---
Subjective Subjective Remarks/Hospital Course: 83-year-old gentleman, the patient of Dr Quinones from cardiology with history of hypertension, coronary artery disease, GERD with Franco's esophagus, DM with peripheral neuropathy, BPH, PAD, angina, arthritis, history of CABG, CKD stage 4 , tinnitus, and questionable of COPD. He has had 1 month chest pain with dyspnea and sputum production. The patient underwent cardiac catheterization that demonstrates Mild aortic stenosis, Left main and triple vessel disease, and Three out of five patent bypass grafts. The patient has had 2-day history of black stool but no bright red blood. The patient denies use of iron supplements. Denies loose stools but has constipation. Patient is on Brillinta and took last dose (?) last night. Hgb was 9.5 today. He feels no chest pain in the wrist and he feels more congested when breathing in; does not report trouble getting air out. He was admitted initially to family medicine residency service for an evaluation of melanotic stool, however developed worsening of shortness of breath requiring BiPAP placement and transfer to ICU. The chest x-ray demonstrates worsening pulmonary edema. 08/28:Endoscopy this morning patient required BiPAP noninvasive ventilation. Dr. Quinones and I discussed this case at length earlier this morning and decided it would be most prudent to perform the endoscopy with airway protection via orotracheal intubation and continue such through the process of the cardiac catheterization and intervention. This has worked well and allowed us to control oxygenation and blood pressure for the various procedures. We are trying to keep the patient well-hydrated in the face of underlying interstitial edema so as to avoid any renal injury on top of his underlying chronic kidney disease. 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 We will continue to follow his GFR closely. Objective Vital Signs / I&O: Vital Signs 08/27/18 18:01 08/27/18 18:41 08/27/18 20:00 Temperature 97.7 F Pulse Rate 93 H 77 78 Respiratory Rate 21 18 20 Blood Pressure 144/64 H 137/66 123/73 Pulse Oximetry 97 97 97 08/28/18 00:00 08/28/18 02:45 08/28/18 03:00 Temperature 97.6 F 97.7 F Pulse Rate 84 82 Respiratory Rate 20 24 Blood Pressure 123/73 140/65 Pulse Oximetry 97 91 L 99 08/28/18 03:02 08/28/18 04:00 08/28/18 04:41 Temperature 97.7 F Pulse Rate 104 H 77 Respiratory Rate 22 20 Blood Pressure 128/61 Pulse Oximetry 100 100 08/28/18 08:00 08/28/18 08:48 Temperature Pulse Rate Respiratory Rate 20 Blood Pressure Pulse Oximetry 98 Intake & Output 08/27/18 08/28/18 08/28/18 18:59 06:59 18:59 Intake Total 0 / 0 415 / 415 Output Total 1000 / 1000 Balance -1000 / -1000 415 / 415 Weight 111.13 kg 113.5 kg Intake: IV 115 / 115 Heparin/NS PF Inj 1,500 ML @ 0 15 / 15 mls/hr .ROUTE .STK-MED ONE Rx#: [id number] Diprivan 1000 mg/100 ml Inj 1, 100 / 100 000 mg In 100 ml @ 5 MCG/KG/MIN 3.405 mls/hr IV.CONT TITRATE PRN Rx#:[id number] Oral 0 / 0 Anesthesia Amount 300 / 300 Output: Urine 1000 / 1000 Other: # Voids 1 Result Diagrams: 08/28/18 04:24 08/28/18 04:24 Objective Remarks: - Constitutional Intubated, sedated, normotensive - Routine HEENT Exam Head: Present: normocephalic, atraumatic Eye: Present: PERRL, normal accommodation ENT: Present: mucous membranes moist - Routine Neck Exam Present: supple, full ROM. Mal tracheal intubation absent: JVD, carotid bruit - Routine Respiratory Exam Present: Crackles markedly reduced with positive pressure ventilation, no wheezing - Routine Cardiovascular Exam Present: RRR, S1, S2, neck veins are full, not tensely distended. - Routine Abdominal Exam Present: soft, normoactive bowel sounds. No guarding. Absent: tenderness, distended - Routine Extremities Exam Warm, well-perfused. Absent: cyanosis, clubbing, edema - Routine Skin Exam Present: Warm, dry absent: cyanosis, erythema - Routine Neurological Exam Present: moving all extremities, sedated Assessment and Plan - Assessment and Plan Plan: Respiratory failure -CXR demonstrates pulmonary edema -Aggressive diuresis -DuoNeb scheduled and as needed -Hold diuretic short-term after cardiac cath, resume after midnight -Continue positive pressure ventilation with elevated PEEP tonight, aim for extubation in a.m. Pulmonary edema -Status post cardiac catheterization 2 days ago with patent 3 out of 5 grafts -Successful PCI left main and proximal LAD today 08/[address] Quinones -Oxygenation acceptable with mechanical ventilation GI bleed -Upper GI bleed with melena stools -PPI -Gastroenterology consult appreciated -No active bleeding found in upper GI tract -Increase Protonix to twice daily Franco esophagus -PPI Coronary artery disease -Brilinta per cardiology -DAPT initiated Chronic kidney disease, stage IV -I's and O's strict -Monitor creatinine and electrolyte levels Diabetes mellitus -Insulin sliding scale Hypertension -Norvasc -Isosorbide -Metoprolol BPH -Flomax DVT GI prophylaxis -Teds SCDs -Pharmacological DVT prophylaxis per GI -Protonix Overall impression: This gentleman is critically ill having unstable angina with an enzyme elevation in the setting of pulmonary edema. He has required emergency PCI today following endoscopy to look for a possible upper gastrointestinal bleeding source. No source was found. We will watch him closely on mechanical ventilation tonight, and avoid overdiuresis following recent dye load. Critical care time 65 minutes aside from procedures.
[2018-08-28] MEDS: Pantoprazole Inj 40 MG Vial IV.PUSH SCH (18:22)
[2018-08-28] MEDS: Chlorhexidine 0.12% Oral Kit 15 ML UDC OROPHARYNG SCH (22:19)
[2018-08-29] MEDS: Oral Hygiene Kit OROPHARYNG SCH ×4 (00:29→15:07)
[2018-08-29] MEDS: Propofol 1000 mg/100 ml Inj 1,000 MG/100 ML BOTTLE IV.CONT PRN (02:00)
[2018-08-29] MEDS: Sod Chloride 0.9% Inj 1,000 ML IV.CONT SCH (02:00)
[2018-08-29 04:35] LABS: Baso % (Auto) 0.2 % (0.0-2.0); Eos % (Auto) 0.4 % (0.0-4.0); Hematocrit 23.8 % (39.0-51.0); Hemoglobin 8.2 gm/dL (13.0-17.0); Lymph # (Auto) 0.3 th/mm3 (1.0-4.8); Lymph % (Auto) 3.5 % (9.0-44.0); Mean Corpuscular HGB Conc 34.4 % (32.0-36.0); Mean Corpuscular Hemoglobin 31.1 pg (27.0-34.0); Mean Corpuscular Volume 90.5 fL (80.0-100.0); Mean Platelet Volume 7.8 fL (7.0-11.0); Mono # (Auto) 0.6 th/mm3 (0.0-0.9); Mono % (Auto) 6.7 % (0.0-8.0); Neut # (Auto) 8.3 th/mm3 (1.8-7.7); Neut % (Auto) 89.2 % (16.0-70.0); Platelet Count 196 th/mm3 (150-450); Red Blood Count 2.63 mil/mm3 (4.50-5.90); Red Cell Distribution Width 15.6 % (11.6-17.2); White Blood Count 9.3 th/mm3 (4.0-11.0)
[2018-08-29 05:05] LABS: Carbon Dioxide 24.7 meq/L (21.0-32.0)
[2018-08-29] MEDS: Pantoprazole Inj 40 MG Vial IV.PUSH SCH ×2 (05:31→17:32)
--- NOTE | 2018-08-29 08:09 | P.PNCA ---
Subjective Interval history: On vent Medications and Allergies Active Medications: Active Medications Acetaminophen (Tylenol) 650 mg PO Q4H PRN PRN Reason: Temp > 100.4 Al Hydroxide/Mg Hydroxide (Milk Of Aron Mclean) 30 ml PO Q12H PRN PRN Reason: Mild Constipation Albuterol (Ventolin Hfa Inh) 2 puff INH Q4H PRN PRN Reason: Shortness Of Breath Albuterol (Duoneb Neb (Prn)) 1 ampul NEB Q2HR NEB PRN PRN Reason: SHORTNESS OF BREATH Amlodipine Besylate (Norvasc) 2.5 mg PO DAILY [facility] Last Admin: 08/28/18 11:37 Dose: Not Given Aspirin (Aspirin Chew) 81 mg PO DAILY [facility] Atorvastatin Calcium (Lipitor) 80 mg PO DAILY [facility] Last Admin: 08/28/18 11:37 Dose: Not Given Bisacodyl (Dulcolax Supp) 10 mg RECTAL DAILY PRN PRN Reason: SEVERE CONSITIPATION Chlorhexidine Gluconate (Peridex 0.12% Oral Kit) 15 ml OROPHARYNG BID@0800, 2000 [facility] Last Admin: 08/28/18 22:19 Dose: 15 ml Dextrose (D50w Vial) 50 ml IV.PUSH UNSCH PRN PRN Reason: PER HYPOGLYCEMIA PROTOCOL Fentanyl Citrate (Fentanyl Inj) 50 mcg IV.PUSH Q2H PRN PRN Reason: Any pain 1-10 Furosemide (Lasix Inj) 40 mg IV.PUSH DAILY [facility] Last Admin: 08/28/18 11:37 Dose: Not Given Furosemide (Lasix Inj) 40 mg IV.PUSH Q6H [facility] Last Admin: 08/28/18 17:12 Dose: 40 mg Glucagon (Glucagon Inj) 1 mg OTHER PRN PRN PRN Reason: for Hypoglycemia Protocol Propofol (Diprivan 1000 Mg/100 Ml Inj) 1,000 mg in 100 mls @ 3.405 mls/hr IV.CONT TITRATE PRN; Protocol PRN Reason: Per Protocol Last Admin: 08/29/18 02:00 Dose: 30 mcg/kg/min, 20.43 mls/hr Fentanyl (Fentanyl 10 Mcg/Ml Premix Drip) 2,500 mcg in 250 mls @ 5 mls/hr IV.SIG TITRATE PRN; Protocol PRN Reason: Per Protocol Insulin Aspart (Novolog Insulin Correctional Sugar Inj) 0 unit SQ ACHS AND 3AM ROXANNE; Protocol Last Admin: 08/28/18 22:19 Dose: Not Given Isosorbide Mononitrate (Imdur) 60 mg PO DAILY [facility] Last Admin: 08/28/18 11:37 Dose: Not Given Lactulose (Lactulose Liq) 30 ml PO DAILY PRN PRN Reason: SEVERE CONSITIPATION Metoprolol Tartrate (Lopressor) 50 mg PO BID [facility] Last Admin: 08/28/18 20:10 Dose: 50 mg Miscellaneous (Pill Splitter) 1 each OTHER UNSCH PRN PRN Reason: SEE LABEL COMMENTS Miscellaneous Medication () 1 each OROPHARYNG 0000,0400,1200,1600 [facility] Last Admin: 08/29/18 05:31 Dose: 1 each Nitroglycerin (Nitrostat Sl) 0.4 mg SL Q5M PRN PRN Reason: Chest Pain Last Admin: 08/27/18 23:15 Dose: 0.4 mg Nitroglycerin (Nitro-Bid 2% Oint) 1 inch TOPICAL Q6HR [facility] Last Admin: 08/29/18 05:31 Dose: 1 inch Ondansetron HCl (Zofran Inj) 4 mg IV.PUSH Q4H PRN PRN Reason: NAUSEA Pantoprazole Sodium (Protonix) 40 mg PO DAILY [facility] Last Admin: 08/28/18 11:37 Dose: Not Given Pantoprazole Sodium (Protonix Inj) 40 mg IV.PUSH Q12H [facility] Last Admin: 08/29/18 05:31 Dose: 40 mg Sennosides (Senokot) 17.2 mg PO Q12H PRN PRN Reason: Moderate Constipation Sodium Chloride (Ns Flush) 2 ml IV.FLUSH BID [facility] Last Admin: 08/28/18 20:10 Dose: 2 ml Sodium Chloride (Ns Flush) 2 ml IV.FLUSH PRN PRN PRN Reason: FLUSH AFTER USING IV ACCESS Tamsulosin HCl (Flomax) 0.8 mg PO DAILY [facility] Last Admin: 08/28/18 11:37 Dose: Not Given Ticagrelor (Brilinta) 90 mg PO BID [facility] Last Admin: 08/28/18 23:55 Dose: 90 mg Allergies Allergy/AdvReac Type Severity Reaction Status Date / Time No Known Allergies Allergy Verified 08/27/18 14:04 Home Medications Medication Instructions Recorded Confirmed Type albuterol sulfate [ProAir HFA] 2 puff INHALATION Q4-6H PRN 08/26/18 08/27/18 History amlodipine 2.5 mg PO DAILY 08/26/18 08/27/18 History aspirin 81 mg PO DAILY 08/26/18 08/27/18 History isosorbide mononitrate 60 mg PO DAILY 08/26/18 08/27/18 History metoprolol tartrate 50 mg PO BID 08/26/18 08/27/18 History nitroglycerin 0.4 mg SUBLINGUAL Q5-15M PRN 08/26/18 08/27/18 History pantoprazole 40 mg PO DAILY 08/26/18 08/27/18 History rosuvastatin 40 mg PO DAILY 08/26/18 08/27/18 History tamsulosin 0.8 mg PO DAILY 08/26/18 08/27/18 History ticagrelor [Brilinta] 90 mg PO BID 08/26/18 08/27/18 History Physical Exam Vital signs: Vital Signs 08/28/18 08:48 08/28/18 11:08 08/28/18 11:10 Temperature Pulse Rate 109 H 108 H Respiratory Rate Blood Pressure 161/72 H 162/68 H Pulse Oximetry 98 99 99 08/28/18 11:13 08/28/18 11:15 08/28/18 11:18 Temperature Pulse Rate 95 H 93 H 89 Respiratory Rate Blood Pressure 120/57 L 122/58 L 119/56 L Pulse Oximetry 97 97 97 08/28/18 11:20 08/28/18 11:23 08/28/18 11:25 Temperature Pulse Rate 87 85 84 Respiratory Rate Blood Pressure 117/58 L 117/57 L 117/56 L Pulse Oximetry 96 96 96 08/28/18 11:31 08/28/18 11:46 08/28/18 12:00 Temperature Pulse Rate 80 74 77 Respiratory Rate Blood Pressure 111/59 L 115/57 L Pulse Oximetry 96 98 99 08/28/18 12:01 08/28/18 12:15 08/28/18 15:39 Temperature Pulse Rate 77 93 H Respiratory Rate Blood Pressure 133/62 134/65 Pulse Oximetry 99 100 98 08/28/18 15:49 08/28/18 16:00 08/28/18 16:15 Temperature 98.1 F Pulse Rate 65 63 62 Respiratory Rate 25 H 18 17 Blood Pressure 111/95 H 120/55 L 106/59 L Pulse Oximetry 100 94 L 100 08/28/18 16:30 08/28/18 16:45 08/28/18 17:00 Temperature Pulse Rate 62 62 60 Respiratory Rate 15 14 18 Blood Pressure 110/54 L 105/53 L 101/53 L Pulse Oximetry 100 100 100 08/28/18 17:15 08/28/18 17:30 08/28/18 17:45 Temperature Pulse Rate 61 62 58 L Respiratory Rate 14 18 12 Blood Pressure 98/53 L 100/52 L 105/53 L Pulse Oximetry 100 100 100 08/28/18 18:00 08/28/18 18:15 08/28/18 18:30 Temperature Pulse Rate 59 L 63 63 Respiratory Rate 13 15 23 Blood Pressure 108/58 L 109/59 L 114/56 L Pulse Oximetry 100 100 100 08/28/18 18:45 08/28/18 19:00 08/28/18 19:15 Temperature Pulse Rate 62 60 63 Respiratory Rate 18 14 15 Blood Pressure 110/56 L 109/54 L 108/54 L Pulse Oximetry 100 100 99 08/28/18 19:20 08/28/18 19:25 08/28/18 19:30 Temperature Pulse Rate 62 62 60 Respiratory Rate 17 17 15 Blood Pressure 107/58 L 105/54 L 99/51 L Pulse Oximetry 98 100 98 08/28/18 19:35 08/28/18 19:40 08/28/18 19:45 Temperature Pulse Rate 59 L 59 L 60 Respiratory Rate 15 13 14 Blood Pressure 102/52 L 103/56 L 103/52 L Pulse Oximetry 98 98 100 08/28/18 19:50 08/28/18 19:55 08/28/18 20:00 Temperature 97.7 F Pulse Rate 62 60 62 Respiratory Rate 14 15 17 Blood Pressure 102/54 L 102/54 L 103/53 L Pulse Oximetry 100 100 100 08/28/18 20:05 08/28/18 20:10 08/28/18 20:15 Temperature Pulse Rate 60 60 60 Respiratory Rate 20 15 15 Blood Pressure 102/56 L 103/51 L 100/55 L Pulse Oximetry 100 100 100 08/28/18 20:20 08/28/18 20:25 08/28/18 20:30 Temperature Pulse Rate 60 60 61 Respiratory Rate 20 17 17 Blood Pressure 102/53 L 107/54 L 105/54 L Pulse Oximetry 99 99 99 08/28/18 20:35 08/28/18 20:40 08/28/18 20:45 Temperature Pulse Rate 60 60 61 Respiratory Rate 15 18 19 Blood Pressure 108/51 L 103/54 L 103/57 L Pulse Oximetry 99 99 99 08/28/18 20:50 08/28/18 20:55 08/28/18 21:00 Temperature Pulse Rate 63 62 59 L Respiratory Rate 15 14 15 Blood Pressure 103/51 L 104/52 L 106/54 L Pulse Oximetry 99 100 100 08/28/18 21:05 08/28/18 21:10 08/28/18 21:15 Temperature Pulse Rate 58 L 56 L 56 L Respiratory Rate 15 15 15 Blood Pressure 104/55 L 100/50 L 98/55 L Pulse Oximetry 100 100 100 08/28/18 21:20 08/28/18 21:25 08/28/18 21:30 Temperature Pulse Rate 55 L 53 L 53 L Respiratory Rate 14 14 15 Blood Pressure 100/51 L 98/51 L 98/55 L Pulse Oximetry 100 100 100 08/28/18 21:35 08/28/18 21:40 08/28/18 21:45 Temperature Pulse Rate 53 L 53 L 53 L Respiratory Rate 16 15 14 Blood Pressure 91/55 L 94/52 L 92/54 L Pulse Oximetry 100 100 100 08/28/18 22:00 08/28/18 22:04 08/28/18 23:00 Temperature Pulse Rate 53 L 53 L 53 L Respiratory Rate 14 15 16 Blood Pressure 97/53 L 107/55 L Pulse Oximetry 100 100 100 08/28/18 23:04 08/28/18 23:40 08/29/18 00:00 Temperature 97.9 F Pulse Rate 53 L 61 Respiratory Rate 15 14 15 Blood Pressure 107/55 L 100/51 L Pulse Oximetry 100 100 100 08/29/18 01:00 08/29/18 02:30 08/29/18 03:00 Temperature Pulse Rate 52 L 53 L 55 L Respiratory Rate 16 14 14 Blood Pressure 92/51 L 96/53 L 97/54 L Pulse Oximetry 98 98 99 08/29/18 03:04 08/29/18 04:00 08/29/18 04:02 Temperature 97.9 F Pulse Rate 55 L Respiratory Rate 15 14 Blood Pressure 97/54 L 95/51 L Pulse Oximetry 98 98 08/29/18 05:00 08/29/18 06:00 Temperature Pulse Rate 55 L 60 Respiratory Rate 15 16 Blood Pressure 100/55 L 120/59 L Pulse Oximetry 99 100 Intake & Output 08/28/18 08/29/18 08/29/18 18:59 06:59 18:59 Intake Total 415 / 415 1200 / 1200 Output Total 950 / 950 650 / 650 Balance -535 / -535 550 / 550 Weight 111.9 kg Intake: IV 115 / 115 1200 / 1200 Heparin/NS PF Inj 1,500 ML @ 0 15 / 15 mls/hr .ROUTE .STK-MED ONE Rx#: [id number] Diprivan 1000 mg/100 ml Inj 1, 100 / 100 200 / 200 000 mg In 100 ml @ 5 MCG/KG/MIN 3.405 mls/hr IV.CONT TITRATE PRN Rx#:[id number] NS Inj 1,000 ML @ 100 mls/hr IV 1000 / 1000 .CONT .Q10H [facility]OXANNE Rx#:[id number] Anesthesia Amount 300 / 300 Output: Urine 950 / 950 650 / 650 Gastric Drainage 0 / 0 Oral Orogastric Tube 0 / 0 Other: # Incontinent Bowel Movements 0 Narrative: On CPAP BP/HR OK chest clear but dcreased (morbidly obese) CV distant S1S2 1/6 MEGHAN RRR Abd soft Right groin: no hematoma Results 08/29/18 03:54 08/29/18 03:54 Cardiac Enzymes 08/27/18 08/27/18 08/27/18 Range/Units 14:19 14:19 21:36 AST 20 (15-37) U/L Troponin I 1.39 H* 1.15 H* (0.02-0.05) ng/mL B-Natriuretic Peptide 680 H (0-100) pg/mL 08/28/18 08/28/18 Range/Units 04:24 04:24 AST 26 (15-37) U/L Troponin I 1.93 H* (0.02-0.05) ng/mL B-Natriuretic Peptide (0-100) pg/mL Coagulation 08/27/18 08/27/18 08/28/18 Range/Units 14:19 14:19 04:24 PT 10.4 10.4 (9.8-11.6) sec APTT 27.8 (23.4-31.7) sec B-Natriuretic Peptide 680 H (0-100) pg/mL CBC 08/27/18 08/27/18 08/28/18 Range/Units 14:19 21:36 04:24 WBC 7.6 7.7 (4.0-11.0) th/mm3 RBC 2.95 L 3.15 L (4.50-5.90) mil/mm3 Hgb 9.5 L 9.0 L 9.8 L (13.0-17.0) gm/dL Hct 26.6 L 26.2 L 28.4 L (39.0-51.0) % Plt Count 229 226 (150-450) th/mm3 Neut # (Auto) 6.1 7.0 (1.8-7.7) th/mm3 Lymph # (Auto) 0.8 L 0.4 L (1.0-4.8) th/mm3 [place] # (Auto) 0.5 0.3 (0.0-0.9) th/mm3 Eos # (Auto) 0.1 0.0 (0.0-0.4) th/mm3 Baso # (Auto) 0.1 0.0 (0.0-0.2) th/mm3 08/29/18 Range/Units 03:54 WBC 9.3 (4.0-11.0) th/mm3 RBC 2.63 L (4.50-5.90) mil/mm3 Hgb 8.2 L (13.0-17.0) gm/dL Hct 23.8 L (39.0-51.0) % Plt Count 196 (150-450) th/mm3 Neut # (Auto) 8.3 H (1.8-7.7) th/mm3 Lymph # (Auto) 0.3 L (1.0-4.8) th/mm3 [place] # (Auto) 0.6 (0.0-0.9) th/mm3 Eos # (Auto) 0.0 (0.0-0.4) th/mm3 Baso # (Auto) 0.0 (0.0-0.2) th/mm3 Comprehensive Metabolic Panel 08/27/18 08/28/18 08/29/18 Range/Units 14:19 04:24 03:54 Sodium 142 141 143 (136-145) meq/L Potassium 4.1 4.7 4.0 (3.5-5.1) meq/L Chloride 106 106 109 H (98-107) meq/L Carbon Dioxide 27.0 27.1 24.7 (21.0-32.0) meq/L BUN 29 H 30 H 36 H (7-18) mg/dL Creatinine 2.11 H 2.29 H 2.26 H (0.60-1.30) mg/dL Calcium 9.1 8.9 8.0 L D (8.5-10.1) mg/dL AST 20 26 (15-37) U/L ALT 20 22 (12-78) U/L Alkaline Phosphatase 76 77 (45-117) U/L Total Protein 6.7 6.9 (6.4-8.2) g/dL Albumin 3.3 L 3.4 (3.4-5.0) g/dL Intake and Output 08/28/18 08/29/18 08/29/18 22:59 06:59 14:59 Intake Total 215 / 215 1100 / 1100 Output Total 950 / 950 650 / 650 Balance -735 / -735 450 / 450 Intake: IV 215 / 215 1100 / 1100 Heparin/NS PF Inj 1,500 ML @ 0 15 / 15 mls/hr .ROUTE .STK-MED ONE Rx#: [id number] Diprivan 1000 mg/100 ml Inj 1, 200 / 200 100 / 100 000 mg In 100 ml @ 5 MCG/KG/MIN 3.405 mls/hr IV.CONT TITRATE PRN Rx#:[id number] NS Inj 1,000 ML @ 100 mls/hr IV 1000 / 1000 .CONT .Q10H ROX[facility]NE Rx#:[id number] Output: Urine 950 / 950 650 / 650 Gastric Drainage 0 / 0 Oral Orogastric Tube 0 / 0 Other: # Incontinent Bowel Movements 0 Weight 111.9 kg - Imaging and Cardiology Imaging: Impressions Chest X-Ray 08/27/18 14:13 CONCLUSION: Cardiomegaly and chronic appearing interstitial changes. No acute abnormality. Chest X-Ray 08/28/18 02:01 CONCLUSION: New bilateral alveolar opacities most characteristic of pulmonary edema. This may indicate congestive heart failure or fluid overload. Assessment and Plan - Assessment (1) Non-ST elevated myocardial infarction (non-STEMI) Code(s): I21.4 - Non-ST elevation (NSTEMI) myocardial infarction Status: Acute (2) Stented coronary artery Code(s): Z95.5 - Presence of coronary angioplasty implant and graft Status: Acute (3) Respiratory failure Code(s): J96.90 - Respiratory failure, unspecified, unspecified whether with hypoxia or hypercapnia Status: Acute (4) GI bleed Code(s): K92.2 - Gastrointestinal hemorrhage, unspecified Status: Acute (5) Chronic kidney disease Code(s): N18.9 - Chronic kidney disease, unspecified Status: Acute (6) Hypertension Code(s): I10 - Essential (primary) hypertension Status: Acute - Plan 08/29 - s/p complex stent left main/ left circ/ LAD bifurcation - hopefully thisresolves hisischemia (he has other disease not revascularized - diagonal and distal LCX. Creat has not bumped. Hct drop concerning. Hopefully he can come off vent today.
[2018-08-29] MEDS: Insulin NovoLOG Aspart Correctional Sugar Inj SQ SCH ×5 (09:01→21:00)
[2018-08-29] MEDS: Chlorhexidine 0.12% Oral Kit 15 ML UDC OROPHARYNG SCH ×2 (09:01→20:28)
--- NOTE | 2018-08-29 09:16 | P.PNFP ---
Subjective Interval history: No acute events overnight. The patient was seen and examined this AM shortly after extubation. Remains afebrile. BPs ranging 90s-120s/50s- 60s overnight. 1600 cc UOP. Patient is alert and answering questions appropriately. Does not express specific complaints. Denies dyspnea, chest pain or pain elsewhere. <Rony Sullivan - 08/29/18 11:50> Results - Labs Result diagrams: 08/29/18 03:54 08/29/18 03:54 <Wu Garza - 08/29/18 14:54> Abnormal lab results 08/28/18 08/29/18 08/29/18 Range/Units 17:33 03:54 03:54 RBC 2.63 L (4.50-5.90) mil/mm3 Hgb 8.2 L (13.0-17.0) gm/dL Hct 23.8 L (39.0-51.0) % Neut % (Auto) 89.2 H (16.0-70.0) % Lymph % (Auto) 3.5 L (9.0-44.0) % Neut # (Auto) 8.3 H (1.8-7.7) th/mm3 Lymph # (Auto) 0.3 L (1.0-4.8) th/mm3 Chloride 109 H (98-107) meq/L BUN 36 H (7-18) mg/dL Creatinine 2.26 H (0.60-1.30) mg/dL Estimated GFR 28 L (>89) mL/min POC Glucose 111 H (68-110) mg/dl Random Glucose 125 H (74-106) mg/dL Calcium 8.0 L D (8.5-10.1) mg/dL 08/29/18 08/29/18 Range/Units 07:56 12:02 RBC (4.50-5.90) mil/mm3 Hgb (13.0-17.0) gm/dL Hct (39.0-51.0) % Neut % (Auto) (16.0-70.0) % Lymph % (Auto) (9.0-44.0) % Neut # (Auto) (1.8-7.7) th/mm3 Lymph # (Auto) (1.0-4.8) th/mm3 Chloride (98-107) meq/L BUN (7-18) mg/dL Creatinine (0.60-1.30) mg/dL Estimated GFR (>89) mL/min POC Glucose 118 H 151 H (68-110) mg/dl Random Glucose (74-106) mg/dL Calcium (8.5-10.1) mg/dL Short CBC 08/29/18 Range/Units 03:54 WBC 9.3 (4.0-11.0) th/mm3 Hgb 8.2 L (13.0-17.0) gm/dL Hct 23.8 L (39.0-51.0) % Plt Count 196 (150-450) th/mm3 BMP 08/29/18 03:54 Sodium 143 Potassium 4.0 Chloride 109 H Carbon Dioxide 24.7 BUN 36 H Creatinine 2.26 H Calcium 8.0 L D Cardiac Enzymes 08/29/18 Range/Units 03:54 Total Creatine Kinase 172 (39-308) U/L <Wu Garza - 08/29/18 14:54> Abnormal lab results 08/28/18 08/29/18 08/29/18 Range/Units 17:33 03:54 03:54 RBC 2.63 L (4.50-5.90) mil/mm3 Hgb 8.2 L (13.0-17.0) gm/dL Hct 23.8 L (39.0-51.0) % Neut % (Auto) 89.2 H (16.0-70.0) % Lymph % (Auto) 3.5 L (9.0-44.0) % Neut # (Auto) 8.3 H (1.8-7.7) th/mm3 Lymph # (Auto) 0.3 L (1.0-4.8) th/mm3 Chloride 109 H (98-107) meq/L BUN 36 H (7-18) mg/dL Creatinine 2.26 H (0.60-1.30) mg/dL Estimated GFR 28 L (>89) mL/min POC Glucose 111 H (68-110) mg/dl Random Glucose 125 H (74-106) mg/dL Calcium 8.0 L D (8.5-10.1) mg/dL 08/29/18 Range/Units 07:56 RBC (4.50-5.90) mil/mm3 Hgb (13.0-17.0) gm/dL Hct (39.0-51.0) % Neut % (Auto) (16.0-70.0) % Lymph % (Auto) (9.0-44.0) % Neut # (Auto) (1.8-7.7) th/mm3 Lymph # (Auto) (1.0-4.8) th/mm3 Chloride (98-107) meq/L BUN (7-18) mg/dL Creatinine (0.60-1.30) mg/dL Estimated GFR (>89) mL/min POC Glucose 118 H (68-110) mg/dl Random Glucose (74-106) mg/dL Calcium (8.5-10.1) mg/dL Short CBC 08/29/18 Range/Units 03:54 WBC 9.3 (4.0-11.0) th/mm3 Hgb 8.2 L (13.0-17.0) gm/dL Hct 23.8 L (39.0-51.0) % Plt Count 196 (150-450) th/mm3 BMP 08/29/18 03:54 Sodium 143 Potassium 4.0 Chloride 109 H Carbon Dioxide 24.7 BUN 36 H Creatinine 2.26 H Calcium 8.0 L D Cardiac Enzymes 08/29/18 Range/Units 03:54 Total Creatine Kinase 172 (39-308) U/L <Mariana Sullivansh - 08/29/18 09:16> Physical Exam Vital signs: Vital Signs 08/28/18 15:39 08/28/18 15:49 08/28/18 16:00 Temperature 98.1 F Pulse Rate 65 63 Respiratory Rate 25 H 18 Blood Pressure 111/95 H 120/55 L Pulse Oximetry 98 100 94 L 08/28/18 16:15 08/28/18 16:30 08/28/18 16:45 Temperature Pulse Rate 62 62 62 Respiratory Rate 17 15 14 Blood Pressure 106/59 L 110/54 L 105/53 L Pulse Oximetry 100 100 100 08/28/18 17:00 08/28/18 17:15 08/28/18 17:30 Temperature Pulse Rate 60 61 62 Respiratory Rate 18 14 18 Blood Pressure 101/53 L 98/53 L 100/52 L Pulse Oximetry 100 100 100 08/28/18 17:45 08/28/18 18:00 08/28/18 18:15 Temperature Pulse Rate 58 L 59 L 63 Respiratory Rate 12 13 15 Blood Pressure 105/53 L 108/58 L 109/59 L Pulse Oximetry 100 100 100 08/28/18 18:30 08/28/18 18:45 08/28/18 19:00 Temperature Pulse Rate 63 62 60 Respiratory Rate 23 18 14 Blood Pressure 114/56 L 110/56 L 109/54 L Pulse Oximetry 100 100 100 08/28/18 19:15 08/28/18 19:20 08/28/18 19:25 Temperature Pulse Rate 63 62 62 Respiratory Rate 15 17 17 Blood Pressure 108/54 L 107/58 L 105/54 L Pulse Oximetry 99 98 100 08/28/18 19:30 08/28/18 19:35 08/28/18 19:40 Temperature Pulse Rate 60 59 L 59 L Respiratory Rate 15 15 13 Blood Pressure 99/51 L 102/52 L 103/56 L Pulse Oximetry 98 98 98 08/28/18 19:45 08/28/18 19:50 08/28/18 19:55 Temperature Pulse Rate 60 62 60 Respiratory Rate 14 14 15 Blood Pressure 103/52 L 102/54 L 102/54 L Pulse Oximetry 100 100 100 08/28/18 20:00 08/28/18 20:05 08/28/18 20:10 Temperature 97.7 F Pulse Rate 62 60 60 Respiratory Rate 17 20 15 Blood Pressure 103/53 L 102/56 L 103/51 L Pulse Oximetry 100 100 100 08/28/18 20:15 08/28/18 20:20 08/28/18 20:25 Temperature Pulse Rate 60 60 60 Respiratory Rate 15 20 17 Blood Pressure 100/55 L 102/53 L 107/54 L Pulse Oximetry 100 99 99 08/28/18 20:30 08/28/18 20:35 08/28/18 20:40 Temperature Pulse Rate 61 60 60 Respiratory Rate 17 15 18 Blood Pressure 105/54 L 108/51 L 103/54 L Pulse Oximetry 99 99 99 08/28/18 20:45 08/28/18 20:50 08/28/18 20:55 Temperature Pulse Rate 61 63 62 Respiratory Rate 19 15 14 Blood Pressure 103/57 L 103/51 L 104/52 L Pulse Oximetry 99 99 100 08/28/18 21:00 08/28/18 21:05 08/28/18 21:10 Temperature Pulse Rate 59 L 58 L 56 L Respiratory Rate 15 15 15 Blood Pressure 106/54 L 104/55 L 100/50 L Pulse Oximetry 100 100 100 08/28/18 21:15 08/28/18 21:20 08/28/18 21:25 Temperature Pulse Rate 56 L 55 L 53 L Respiratory Rate 15 14 14 Blood Pressure 98/55 L 100/51 L 98/51 L Pulse Oximetry 100 100 100 08/28/18 21:30 08/28/18 21:35 08/28/18 21:40 Temperature Pulse Rate 53 L 53 L 53 L Respiratory Rate 15 16 15 Blood Pressure 98/55 L 91/55 L 94/52 L Pulse Oximetry 100 100 100 08/28/18 21:45 08/28/18 22:00 08/28/18 22:04 Temperature Pulse Rate 53 L 53 L 53 L Respiratory Rate 14 14 15 Blood Pressure 92/54 L 97/53 L Pulse Oximetry 100 100 100 08/28/18 23:00 08/28/18 23:04 08/28/18 23:40 Temperature Pulse Rate 53 L 53 L Respiratory Rate 16 15 14 Blood Pressure 107/55 L 107/55 L Pulse Oximetry 100 100 100 08/29/18 00:00 08/29/18 01:00 08/29/18 02:30 Temperature 97.9 F Pulse Rate 61 52 L 53 L Respiratory Rate 15 16 14 Blood Pressure 100/51 L 92/51 L 96/53 L Pulse Oximetry 100 98 98 08/29/18 03:00 08/29/18 03:04 08/29/18 04:00 Temperature 97.9 F Pulse Rate 55 L 55 L Respiratory Rate 14 15 Blood Pressure 97/54 L 97/54 L 95/51 L Pulse Oximetry 99 98 08/29/18 04:02 08/29/18 05:00 08/29/18 06:00 Temperature Pulse Rate 55 L 60 Respiratory Rate 14 15 16 Blood Pressure 100/55 L 120/59 L Pulse Oximetry 98 99 100 08/29/18 07:00 08/29/18 07:04 08/29/18 08:00 Temperature Pulse Rate 62 62 71 Respiratory Rate 17 15 20 Blood Pressure 124/56 L Pulse Oximetry 98 98 97 08/29/18 08:04 08/29/18 08:17 08/29/18 09:00 Temperature 98.1 F Pulse Rate 71 69 65 Respiratory Rate 15 14 20 Blood Pressure 129/59 L Pulse Oximetry 100 100 94 L 08/29/18 09:04 08/29/18 10:00 08/29/18 10:04 Temperature Pulse Rate 77 80 80 Respiratory Rate 17 25 H 21 Blood Pressure 134/64 116/61 Pulse Oximetry 95 96 94 L 08/29/18 11:00 08/29/18 11:04 08/29/18 11:45 Temperature Pulse Rate 74 71 Respiratory Rate 17 19 Blood Pressure 101/53 L Pulse Oximetry 98 99 98 08/29/18 12:00 08/29/18 12:04 08/29/18 13:00 Temperature 98.2 F Pulse Rate 65 67 66 Respiratory Rate 15 20 17 Blood Pressure 104/54 L 104/54 L Pulse Oximetry 97 97 98 08/29/18 13:04 08/29/18 14:00 08/29/18 14:04 Temperature Pulse Rate 66 73 71 Respiratory Rate 23 19 19 Blood Pressure 97/52 L 91/49 L Pulse Oximetry 97 98 98 Intake & Output 08/28/18 08/29/18 08/29/18 18:59 06:59 18:59 Intake Total 415 / 415 1200 / 1200 1100 / 1100 Output Total 950 / 950 650 / 650 Balance -535 / -535 550 / 550 1100 / 1100 Weight 111.9 kg Intake: IV 115 / 115 1200 / 1200 1100 / 1100 Heparin/NS PF Inj 1,500 ML @ 0 15 / 15 mls/hr .ROUTE .STK-MED ONE Rx#: [id number] Diprivan 1000 mg/100 ml Inj 1, 100 / 100 200 / 200 100 / 100 000 mg In 100 ml @ 5 MCG/KG/MIN 3.405 mls/hr IV.CONT TITRATE PRN Rx#:[id number] NS Inj 1,000 ML @ 100 mls/hr IV 1000 / 1000 1000 / 1000 .CONT .Q10H ROXANNE Rx#:[id number] Anesthesia Amount 300 / 300 Output: Urine 950 / 950 650 / 650 Gastric Drainage 0 / 0 Oral Orogastric Tube 0 / 0 Other: # Incontinent Bowel Movements 0 <Wu Garza 08/29/18 14:54> Vital Signs 11/14/18 11:08 08/28/18 11:10 08/28/18 11:13 Temperature Pulse Rate 109 H 108 H 95 H Respiratory Rate Blood Pressure 161/72 H 162/68 H 120/57 L Pulse Oximetry 99 99 97 08/28/18 11:15 08/28/18 11:18 08/28/18 11:20 Temperature Pulse Rate 93 H 89 87 Respiratory Rate Blood Pressure 122/58 L 119/56 L 117/58 L Pulse Oximetry 97 97 96 08/28/18 11:23 08/28/18 11:25 08/28/18 11:31 Temperature Pulse Rate 85 84 80 Respiratory Rate Blood Pressure 117/57 L 117/56 L 111/59 L Pulse Oximetry 96 96 96 08/28/18 11:46 08/28/18 12:00 08/28/18 12:01 Temperature Pulse Rate 74 77 77 Respiratory Rate Blood Pressure 115/57 L 133/62 Pulse Oximetry 98 99 99 08/28/18 12:15 08/28/18 15:39 08/28/18 15:49 Temperature Pulse Rate 93 H 65 Respiratory Rate 25 H Blood Pressure 134/65 111/95 H Pulse Oximetry 100 98 100 08/28/18 16:00 08/28/18 16:15 08/28/18 16:30 Temperature 98.1 F Pulse Rate 63 62 62 Respiratory Rate 18 17 15 Blood Pressure 120/55 L 106/59 L 110/54 L Pulse Oximetry 94 L 100 100 08/28/18 16:45 08/28/18 17:00 08/28/18 17:15 Temperature Pulse Rate 62 60 61 Respiratory Rate 14 18 14 Blood Pressure 105/53 L 101/53 L 98/53 L Pulse Oximetry 100 100 100 08/28/18 17:30 08/28/18 17:45 08/28/18 18:00 Temperature Pulse Rate 62 58 L 59 L Respiratory Rate 18 12 13 Blood Pressure 100/52 L 105/53 L 108/58 L Pulse Oximetry 100 100 100 08/28/18 18:15 08/28/18 18:30 08/28/18 18:45 Temperature Pulse Rate 63 63 62 Respiratory Rate 15 23 18 Blood Pressure 109/59 L 114/56 L 110/56 L Pulse Oximetry 100 100 100 08/28/18 19:00 08/28/18 19:15 08/28/18 19:20 Temperature Pulse Rate 60 63 62 Respiratory Rate 14 15 17 Blood Pressure 109/54 L 108/54 L 107/58 L Pulse Oximetry 100 99 98 08/28/18 19:25 08/28/18 19:30 08/28/18 19:35 Temperature Pulse Rate 62 60 59 L Respiratory Rate 17 15 15 Blood Pressure 105/54 L 99/51 L 102/52 L Pulse Oximetry 100 98 98 08/28/18 19:40 08/28/18 19:45 08/28/18 19:50 Temperature Pulse Rate 59 L 60 62 Respiratory Rate 13 14 14 Blood Pressure 103/56 L 103/52 L 102/54 L Pulse Oximetry 98 100 100 08/28/18 19:55 08/28/18 20:00 08/28/18 20:05 Temperature 97.7 F Pulse Rate 60 62 60 Respiratory Rate 15 17 20 Blood Pressure 102/54 L 103/53 L 102/56 L Pulse Oximetry 100 100 100 08/28/18 20:10 08/28/18 20:15 08/28/18 20:20 Temperature Pulse Rate 60 60 60 Respiratory Rate 15 15 20 Blood Pressure 103/51 L 100/55 L 102/53 L Pulse Oximetry 100 100 99 08/28/18 20:25 08/28/18 20:30 08/28/18 20:35 Temperature Pulse Rate 60 61 60 Respiratory Rate 17 17 15 Blood Pressure 107/54 L 105/54 L 108/51 L Pulse Oximetry 99 99 99 08/28/18 20:40 08/28/18 20:45 08/28/18 20:50 Temperature Pulse Rate 60 61 63 Respiratory Rate 18 19 15 Blood Pressure 103/54 L 103/57 L 103/51 L Pulse Oximetry 99 99 99 08/28/18 20:55 08/28/18 21:00 08/28/18 21:05 Temperature Pulse Rate 62 59 L 58 L Respiratory Rate 14 15 15 Blood Pressure 104/52 L 106/54 L 104/55 L Pulse Oximetry 100 100 100 08/28/18 21:10 08/28/18 21:15 08/28/18 21:20 Temperature Pulse Rate 56 L 56 L 55 L Respiratory Rate 15 15 14 Blood Pressure 100/50 L 98/55 L 100/51 L Pulse Oximetry 100 100 100 08/28/18 21:25 08/28/18 21:30 08/28/18 21:35 Temperature Pulse Rate 53 L 53 L 53 L Respiratory Rate 14 15 16 Blood Pressure 98/51 L 98/55 L 91/55 L Pulse Oximetry 100 100 100 08/28/18 21:40 08/28/18 21:45 08/28/18 22:00 Temperature Pulse Rate 53 L 53 L 53 L Respiratory Rate 15 14 14 Blood Pressure 94/52 L 92/54 L Pulse Oximetry 100 100 100 08/28/18 22:04 08/28/18 23:00 08/28/18 23:04 Temperature Pulse Rate 53 L 53 L 53 L Respiratory Rate 15 16 15 Blood Pressure 97/53 L 107/55 L 107/55 L Pulse Oximetry 100 100 100 08/28/18 23:40 08/29/18 00:00 08/29/18 01:00 Temperature 97.9 F Pulse Rate 61 52 L Respiratory Rate 14 15 16 Blood Pressure 100/51 L 92/51 L Pulse Oximetry 100 100 98 08/29/18 02:30 08/29/18 03:00 08/29/18 03:04 Temperature Pulse Rate 53 L 55 L Respiratory Rate 14 14 Blood Pressure 96/53 L 97/54 L 97/54 L Pulse Oximetry 98 99 08/29/18 04:00 08/29/18 04:02 08/29/18 05:00 Temperature 97.9 F Pulse Rate 55 L 55 L Respiratory Rate 15 14 15 Blood Pressure 95/51 L 100/55 L Pulse Oximetry 98 98 99 08/29/18 06:00 08/29/18 08:17 Temperature Pulse Rate 60 69 Respiratory Rate 16 14 Blood Pressure 120/59 L Pulse Oximetry 100 100 Intake & Output 08/28/18 08/29/18 08/29/18 18:59 06:59 18:59 Intake Total 415 / 415 1200 / 1200 100 / 100 Output Total 950 / 950 650 / 650 Balance -535 / -535 550 / 550 100 / 100 Weight 111.9 kg Intake: IV 115 / 115 1200 / 1200 100 / 100 Heparin/NS PF Inj 1,500 ML @ 0 15 / 15 mls/hr .ROUTE .STK-MED ONE Rx#: [id number] Diprivan 1000 mg/100 ml Inj 1, 100 / 100 200 / 200 100 / 100 000 mg In 100 ml @ 5 MCG/KG/MIN 3.405 mls/hr IV.CONT TITRATE PRN Rx#:[id number] NS Inj 1,000 ML @ 100 mls/hr IV 1000 / 1000 .CONT .Q10H ROXANNE Rx#:[id number] Anesthesia Amount 300 / 300 Output: Urine 950 / 950 650 / 650 Gastric Drainage 0 / 0 Oral Orogastric Tube 0 / 0 Other: # Incontinent Bowel Movements 0 <Rony Sullivan - 08/29/18 09:16> Narrative: GENERAL: Pleasant elderly male lying in bed, no respiratory distress , shivering some under warm blankets SKIN: No rashes. Cool and dry. HEAD: Atraumatic. Normocephalic. EYES: EOMI. No scleral icterus. No injection or drainage. ENT: Nose without drainage. MMM. CARDIOVASCULAR: Regular rate and rhythm. No murmur appreciated. No gallops or rubs. RESPIRATORY: No respiratory distress. Breath sounds equal bilaterally. Faint end -expiratory wheezes. ABDOMEN: Abdomen soft, non-tender, without guarding. Diastasis recti MUSCULOSKELETAL: 1+ pedal edema noted. NEUROLOGICAL: Awake and alert. Speech is soft but coherent. Answering questions appropriately. Motor and sensory grossly within normal limits. Moving all extremities. <Rony Sullivan - 08/29/18 11:50> Assessment and Plan - Assessment (1) Unstable angina Code(s): I20.0 - Unstable angina Status: Acute (2) Pulmonary edema Code(s): J81.1 - Chronic pulmonary edema Status: Acute (3) GI bleed Code(s): K92.2 - Gastrointestinal hemorrhage, unspecified Status: Acute (4) Hypertension Code(s): I10 - Essential (primary) hypertension Status: Chronic (5) Chronic kidney disease Code(s): N18.9 - Chronic kidney disease, unspecified Status: Chronic (6) History of CVA (cerebrovascular accident) Code(s): Z86.73 - Personal history of transient ischemic attack (TIA), and cerebral infarction without residual deficits Status: Chronic (7) GERD (gastroesophageal reflux disease) Code(s): K21.9 - Gastro-esophageal reflux disease without esophagitis Status: Chronic (8) Diabetes Code(s): E11.9 - Type 2 diabetes mellitus without complications Status: Chronic (9) Enlarged prostate Code(s): N40.0 - Benign prostatic hyperplasia without lower urinary tract symptoms Status: Chronic (10) Anemia Code(s): D64.9 - Anemia, unspecified Status: Chronic (11) Nutrition, metabolism, and development symptoms Code(s): R63.8 - Other symptoms and signs concerning food and fluid intake Status: Acute <Wu Garza - 08/29/18 14:54> (1) Unstable angina Code(s): I20.0 - Unstable angina Status: Acute Plan: Patient with a significant cardiac history s/p CABGx5 and recent cardiac catheterization who presented with chest pain and dyspnea. -Consult Dr. Quinones, interventional cardiology -s/p stenting to his left main/left circumflex/and LAD bifurcation by cardiology on 08/28 -Continue telemetry Continue home medications: - Brilinta 90 mg BID - amlodipine 2.5mg daily - aspirin 81 mg - Isosorbide Mononitrate 60 mg PO daily - nitroglycerin 0.4 mg SL Q5 min PRN - metoprolol 50 mg BID (2) Pulmonary edema Code(s): J81.1 - Chronic pulmonary edema Status: Acute Plan: Diuresis per critical care Monitor oxygenation and respiratory status closely Supplemental oxygen if needed, patient currently on 5L via [place] this morning Duonebs q2h prn BiPAP if needed (3) GI bleed Code(s): K92.2 - Gastrointestinal hemorrhage, unspecified Status: Acute Plan: Patient with a 3 day history of black stools prior to admission Consult gastroenterology s/p EGD on 08/28 which showed no active bleeding Hgb noted to decline today to 8.2, will continue to monitor H/H at least q12h Will transfuse patient if hemoglobin < 8 or he becomes symptomatic Consider GI bleeding scan or repeat CT abd/pelvis w/o if Hgb declines further Monitor for active bleeding Continue Protonix 40 mg IV bid at this time Supportive care (4) Hypertension Code(s): I10 - Essential (primary) hypertension Status: Chronic Plan: Stable with current regimen. Monitor for hypotension. Continue home amlodipine and metoprolol. (5) Chronic kidney disease Code(s): N18.9 - Chronic kidney disease, unspecified Status: Chronic Plan: Patient with known CKD. Creatinine stable -Continue to monitor renal function, I/Os while diuresing -Avoid contrast dye and nephrotoxic medications (6) History of CVA (cerebrovascular accident) Code(s): Z86.73 - Personal history of transient ischemic attack (TIA), and cerebral infarction without residual deficits Status: Chronic Plan: Patient has no neurological deficits from CVA in 2013. S/P bilateral carotid endarterectomy (7) GERD (gastroesophageal reflux disease) Code(s): K21.9 - Gastro-esophageal reflux disease without esophagitis Status: Chronic Plan: Continue pantoprazole (8) Diabetes Code(s): E11.9 - Type 2 diabetes mellitus without complications Status: Chronic Plan: Patient is not on home medications based on home medication lists. He reports that he is a diabetic. -low dose sliding scale insulin (9) Enlarged prostate Code(s): N40.0 - Benign prostatic hyperplasia without lower urinary tract symptoms Status: Chronic Plan: -Continue tamsulosin, hold for hypotension (10) Anemia Code(s): D64.9 - Anemia, unspecified Status: Chronic Plan: patient has a history of anemia with baseline Hgb ~9.0. - Plan as above, continue to monitor (11) Nutrition, metabolism, and development symptoms Code(s): R63.8 - Other symptoms and signs concerning food and fluid intake Status: Acute Plan: Fluids: per PO Electrolytes: continue to monitor and replete as needed Nutrition: heart healthy GI ppx: Protonix 40 mg IV q12h DVT ppx: b/l SCDs, chemical anticoagulation contraindicated at this time, monitoring H/H, continue brilinta <CatieRony sr - 08/29/18 10:55> - Assessment and Plan Very pleasant 83 year old man with a h/o significant CAD s/p 5-vessel CABG in 2008, angina, CKD stage 4, HTN, DM, PAD, BPH, GERD with Franco's esophagus, questionable diagnosis of COPD who presented with a one-month history of chest pains and dyspnea as well as a few days of having black, tarry stools. The patient underwent a cardiac cath the day prior to admission which showed closure of 2 of his 5 grafts. Cardiology and gastroenterology were consulted given his angina and suspected upper GI bleed. The patient's hospitalization was complicated by flash pulmonary edema requiring BiPAP and diuresis and transfer to the ICU overnight on 08/27. The patient underwent an EGD on 08/28 which showed no active bleeding, and is s/p stenting to his left main/left circumflex/and LAD bifurcation by cardiology on 08/28. Patient extubated on . <Rony Sullivan - 08/29/18 11:50> - Attending Attestation The exam, history, and the medical decision-making described in the above note were completed with the assistance of the resident physician. I reviewed and agree with the findings presented. I attest that I had a [id number] encounter with the patient on the same day, and personally performed and documented my assessment and findings in the medical record. Successfully extubated this AM, reviewed blasting entryman, cardiology, and GI notes. Able to converse well but had been recently extubated when I saw him and was tired. He was on wall oxygen at 10L by NR[facility] when seen this AM. Plan is to resume diuresis with lasix 40 Iv q 6, add back anti hypertensives as tolerated now that off sedation. Continue brilinta per cardiology and monitor for signs of bleeding. still on PPI Hgb did drop this AM so will recheck and likely transfuse if Hgb drops <8 given his recent unstable angina and some CAD not able to be intervened on. <Wu Garza - 08/29/18 14:54>
--- NOTE | 2018-08-29 09:22 | P.PNCC ---
Subjective Subjective Remarks/Hospital Course: 83-year-old gentleman, the patient of Dr Quinones from cardiology with history of hypertension, coronary artery disease, GERD with Franco's esophagus, DM with peripheral neuropathy, BPH, PAD, angina, arthritis, history of CABG, CKD stage 4 , tinnitus, and questionable of COPD. He has had 1 month chest pain with dyspnea and sputum production. The patient underwent cardiac catheterization that demonstrates Mild aortic stenosis, Left main and triple vessel disease, and Three out of five patent bypass grafts. The patient has had 2-day history of black stool but no bright red blood. The patient denies use of iron supplements. Denies loose stools but has constipation. Patient is on Brillinta and took last dose (?) last night. Hgb was 9.5 today. He feels no chest pain in the wrist and he feels more congested when breathing in; does not report trouble getting air out. He was admitted initially to family medicine residency service for an evaluation of melanotic stool, however developed worsening of shortness of breath requiring BiPAP placement and transfer to ICU. The chest x-ray demonstrates worsening pulmonary edema. 08/28:Endoscopy this morning patient required BiPAP noninvasive ventilation. Dr. Quinones and I discussed this case at length earlier this morning and decided it would be most prudent to perform the endoscopy with airway protection via orotracheal intubation and continue such through the process of the cardiac catheterization and intervention. This has worked well and allowed us to control oxygenation and blood pressure for the various procedures. We are trying to keep the patient well-hydrated in the face of underlying interstitial edema so as to avoid any renal injury on top of his underlying chronic kidney disease. The plan is to back off on the diuretics immediately following the procedure, continue gentle hydration with isotonic fluid, and resume diuretics in the home visits nurse. We will continue to follow his GFR closely. 08/29: His lungs were clear this morning and he tolerated extubation without difficulty. On reevaluation about an hour after extubation he has audible wheezes and some crackles. His creatinine is held up nicely following his interventional procedure yesterday but it is time to start aggressively diuresing him. He merits quite close watch in today and may require BiPAP noninvasive ventilation if he does not respond well to the diuretics. Objective Vital Signs / I&O: Vital Signs 08/28/18 11:08 08/28/18 11:10 08/28/18 11:13 Temperature Pulse Rate 109 H 108 H 95 H Respiratory Rate Blood Pressure 161/72 H 162/68 H 120/57 L Pulse Oximetry 99 99 97 08/28/18 11:15 08/28/18 11:18 08/28/18 11:20 Temperature Pulse Rate 93 H 89 87 Respiratory Rate Blood Pressure 122/58 L 119/56 L 117/58 L Pulse Oximetry 97 97 96 08/28/18 11:23 08/28/18 11:25 08/28/18 11:31 Temperature Pulse Rate 85 84 80 Respiratory Rate Blood Pressure 117/57 L 117/56 L 111/59 L Pulse Oximetry 96 96 96 08/28/18 11:46 08/28/18 12:00 08/28/18 12:01 Temperature Pulse Rate 74 77 77 Respiratory Rate Blood Pressure 115/57 L 133/62 Pulse Oximetry 98 99 99 08/28/18 12:15 08/28/18 15:39 08/28/18 15:49 Temperature Pulse Rate 93 H 65 Respiratory Rate 25 H Blood Pressure 134/65 111/95 H Pulse Oximetry 100 98 100 08/28/18 16:00 08/28/18 16:15 08/28/18 16:30 Temperature 98.1 F Pulse Rate 63 62 62 Respiratory Rate 18 17 15 Blood Pressure 120/55 L 106/59 L 110/54 L Pulse Oximetry 94 L 100 100 08/28/18 16:45 08/28/18 17:00 08/28/18 17:15 Temperature Pulse Rate 62 60 61 Respiratory Rate 14 18 14 Blood Pressure 105/53 L 101/53 L 98/53 L Pulse Oximetry 100 100 100 08/28/18 17:30 08/28/18 17:45 08/28/18 18:00 Temperature Pulse Rate 62 58 L 59 L Respiratory Rate 18 12 13 Blood Pressure 100/52 L 105/53 L 108/58 L Pulse Oximetry 100 100 100 08/28/18 18:15 08/28/18 18:30 08/28/18 18:45 Temperature Pulse Rate 63 63 62 Respiratory Rate 15 23 18 Blood Pressure 109/59 L 114/56 L 110/56 L Pulse Oximetry 100 100 100 08/28/18 19:00 08/28/18 19:15 08/28/18 19:20 Temperature Pulse Rate 60 63 62 Respiratory Rate 14 15 17 Blood Pressure 109/54 L 108/54 L 107/58 L Pulse Oximetry 100 99 98 08/28/18 19:25 08/28/18 19:30 08/28/18 19:35 Temperature Pulse Rate 62 60 59 L Respiratory Rate 17 15 15 Blood Pressure 105/54 L 99/51 L 102/52 L Pulse Oximetry 100 98 98 08/28/18 19:40 08/28/18 19:45 08/28/18 19:50 Temperature Pulse Rate 59 L 60 62 Respiratory Rate 13 14 14 Blood Pressure 103/56 L 103/52 L 102/54 L Pulse Oximetry 98 100 100 08/28/18 19:55 08/28/18 20:00 08/28/18 20:05 Temperature 97.7 F Pulse Rate 60 62 60 Respiratory Rate 15 17 20 Blood Pressure 102/54 L 103/53 L 102/56 L Pulse Oximetry 100 100 100 08/28/18 20:10 08/28/18 20:15 08/28/18 20:20 Temperature Pulse Rate 60 60 60 Respiratory Rate 15 15 20 Blood Pressure 103/51 L 100/55 L 102/53 L Pulse Oximetry 100 100 99 08/28/18 20:25 08/28/18 20:30 08/28/18 20:35 Temperature Pulse Rate 60 61 60 Respiratory Rate 17 17 15 Blood Pressure 107/54 L 105/54 L 108/51 L Pulse Oximetry 99 99 99 08/28/18 20:40 08/28/18 20:45 08/28/18 20:50 Temperature Pulse Rate 60 61 63 Respiratory Rate 18 19 15 Blood Pressure 103/54 L 103/57 L 103/51 L Pulse Oximetry 99 99 99 08/28/18 20:55 08/28/18 21:00 08/28/18 21:05 Temperature Pulse Rate 62 59 L 58 L Respiratory Rate 14 15 15 Blood Pressure 104/52 L 106/54 L 104/55 L Pulse Oximetry 100 100 100 08/28/18 21:10 08/28/18 21:15 08/28/18 21:20 Temperature Pulse Rate 56 L 56 L 55 L Respiratory Rate 15 15 14 Blood Pressure 100/50 L 98/55 L 100/51 L Pulse Oximetry 100 100 100 08/28/18 21:25 08/28/18 21:30 08/28/18 21:35 Temperature Pulse Rate 53 L 53 L 53 L Respiratory Rate 14 15 16 Blood Pressure 98/51 L 98/55 L 91/55 L Pulse Oximetry 100 100 100 08/28/18 21:40 08/28/18 21:45 08/28/18 22:00 Temperature Pulse Rate 53 L 53 L 53 L Respiratory Rate 15 14 14 Blood Pressure 94/52 L 92/54 L Pulse Oximetry 100 100 100 08/28/18 22:04 08/28/18 23:00 08/28/18 23:04 Temperature Pulse Rate 53 L 53 L 53 L Respiratory Rate 15 16 15 Blood Pressure 97/53 L 107/55 L 107/55 L Pulse Oximetry 100 100 100 08/28/18 23:40 08/29/18 00:00 08/29/18 01:00 Temperature 97.9 F Pulse Rate 61 52 L Respiratory Rate 14 15 16 Blood Pressure 100/51 L 92/51 L Pulse Oximetry 100 100 98 08/29/18 02:30 08/29/18 03:00 08/29/18 03:04 Temperature Pulse Rate 53 L 55 L Respiratory Rate 14 14 Blood Pressure 96/53 L 97/54 L 97/54 L Pulse Oximetry 98 99 08/29/18 04:00 08/29/18 04:02 08/29/18 05:00 Temperature 97.9 F Pulse Rate 55 L 55 L Respiratory Rate 15 14 15 Blood Pressure 95/51 L 100/55 L Pulse Oximetry 98 98 99 08/29/18 06:00 08/29/18 08:17 Temperature Pulse Rate 60 69 Respiratory Rate 16 14 Blood Pressure 120/59 L Pulse Oximetry 100 100 Intake & Output 08/28/18 08/29/18 08/29/18 18:59 06:59 18:59 Intake Total 415 / 415 1200 / 1200 100 / 100 Output Total 950 / 950 650 / 650 Balance -535 / -535 550 / 550 100 / 100 Weight 111.9 kg Intake: IV 115 / 115 1200 / 1200 100 / 100 Heparin/NS PF Inj 1,500 ML @ 0 15 / 15 mls/hr .ROUTE .STK-MED ONE Rx#: [id number] Diprivan 1000 mg/100 ml Inj 1, 100 / 100 200 / 200 100 / 100 000 mg In 100 ml @ 5 MCG/KG/MIN 3.405 mls/hr IV.CONT TITRATE PRN Rx#:[id number] NS Inj 1,000 ML @ 100 mls/hr IV 1000 / 1000 .CONT .Q10H ROXANNE Rx#:[id number] Anesthesia Amount 300 / 300 Output: Urine 950 / 950 650 / 650 Gastric Drainage 0 / 0 Oral Orogastric Tube 0 / 0 Other: # Incontinent Bowel Movements 0 Result Diagrams: 08/29/18 03:54 08/29/18 03:54 Objective Remarks: - Constitutional Intubated, sedated, normotensive - Routine HEENT Exam Head: Present: normocephalic, atraumatic Eye: Present: PERRL, normal accommodation ENT: Present: mucous membranes moist - Routine Neck Exam Present: supple, full ROM. Mal tracheal intubation absent: JVD, carotid bruit - Routine Respiratory Exam Present: Diffuse wheezes although respiratory effort not labored. Crackles are present. - Routine Cardiovascular Exam Present: RRR, S1, S2, neck veins are full, not tensely distended. - Routine Abdominal Exam Present: soft, normoactive bowel sounds. No guarding. Absent: tenderness, distended - Routine Extremities Exam Warm, well-perfused. Absent: cyanosis, clubbing, edema - Routine Skin Exam Present: Warm, dry absent: cyanosis, erythema - Routine Neurological Exam Present: moving all extremities, conversant, oriented Assessment and Plan - Assessment and Plan Plan: Respiratory failure -CXR demonstrates pulmonary edema -Aggressive diuresis -DuoNeb scheduled and as needed -Hold diuretic short-term after cardiac cath, resume after midnight -Continue positive pressure ventilation with elevated PEEP tonight, aim for extubation in a.m. Pulmonary edema -Status post cardiac catheterization 2 days ago with patent 3 out of 5 grafts -Successful PCI left main and proximal LAD today 08/[address] Quinones -Oxygenation acceptable with mechanical ventilation -Extubated 08/29 in the morning GI bleed -Upper GI bleed with melena stools -PPI -Gastroenterology consult appreciated -No active bleeding found in upper GI tract -Increase Protonix to twice daily Franco esophagus -PPI Coronary artery disease -Brilinta per cardiology -DAPT initiated Chronic kidney disease, stage IV -I's and O's strict -Monitor creatinine and electrolyte levels Diabetes mellitus -Insulin sliding scale Hypertension -Norvasc -Isosorbide -Metoprolol BPH -Flomax DVT GI prophylaxis -Teds SCDs -Pharmacological DVT prophylaxis per GI -Protonix Overall impression: This gentleman is critically ill having unstable angina with an enzyme elevation in the setting of pulmonary edema. He has required emergency PCI today following endoscopy to look for a possible upper gastrointestinal bleeding source. No source was found. We watched him closely on mechanical ventilation overnight and extubated without difficulty this morning. He is however developing pulmonary edema again and we need to initiate aggressive diuresis. He remains critically ill. Critical care time 45 minutes aside from procedures.
[2018-08-29] MEDS: Isosorbide Mononitrate 30 MG ER 24HR Tablet (Imdur) PO SCH (10:02)
[2018-08-29] MEDS: amLODIPine 5 MG Tablet PO SCH (10:02)
[2018-08-29] MEDS: Metoprolol Tartrate 25 MG Tablet PO SCH ×2 (10:03→21:55)
[2018-08-29 15:44] LABS: Hematocrit 22.6 % (39.0-51.0)
--- NOTE | 2018-08-29 21:02 | ECG ---
Date Performed: 08/29/2018 Time Performed: 08:02:18 PTAGE: 83 years EKG: Sinus rhythm RIGHT BUNDLE BRANCH BLOCK Since the previous tracing, no significant change noted ABNORMAL ECG PREVIOUS TRACING : 08/28/2018 18.38 DOCTOR: Frank Ortiz Interpretating Date/Time 08/29/2018 21:01:54
--- NOTE | 2018-08-29 21:02 | ECG ---
Date Performed: 08/28/2018 Time Performed: 18:38:07 PTAGE: 83 years EKG: Sinus rhythm WITH SINUS ARRHYTHMIA Right bundle branch block Compared to previous tracing, left anterior fasicula r block is no longer present ABNORMAL ECG PREVIOUS TRACING : 08/28/2018 01.37 DOCTOR: Frank Ortiz Interpretating Date/Time 08/29/2018 21:01:41
[2018-08-30] MEDS: Oral Hygiene Kit OROPHARYNG SCH ×4 (00:36→18:22)
[2018-08-30] MEDS: Insulin NovoLOG Aspart Correctional Sugar Inj SQ SCH ×5 (03:41→21:13)
[2018-08-30] MEDS: Pantoprazole Inj 40 MG Vial IV.PUSH SCH ×2 (05:45→18:21)
[2018-08-30 06:46] LABS: Potassium 3.4 meq/L (3.5-5.1)
[2018-08-30 07:00] LABS: Baso % (Auto) 0.4 % (0.0-2.0); Eos # (Auto) 0.2 th/mm3 (0.0-0.4); Eos % (Auto) 2.8 % (0.0-4.0); Hematocrit 24.5 % (39.0-51.0); Hemoglobin 7.9 gm/dL (13.0-17.0); Lymph # (Auto) 0.6 th/mm3 (1.0-4.8); Lymph % (Auto) 10.8 % (9.0-44.0); Mean Corpuscular HGB Conc 32.3 % (32.0-36.0); Mean Corpuscular Hemoglobin 31.1 pg (27.0-34.0); Mean Corpuscular Volume 96.2 fL (80.0-100.0); Mean Platelet Volume 7.8 fL (7.0-11.0); Mono # (Auto) 0.5 th/mm3 (0.0-0.9); Mono % (Auto) 8.9 % (0.0-8.0); Neut # (Auto) 4.6 th/mm3 (1.8-7.7); Neut % (Auto) 77.1 % (16.0-70.0); Platelet Count 180 th/mm3 (150-450); Red Blood Count 2.55 mil/mm3 (4.50-5.90); Red Cell Distribution Width 16.3 % (11.6-17.2); White Blood Count 5.9 th/mm3 (4.0-11.0)
[2018-08-30 07:18] LABS: Calcium 7.5 mg/dL (8.5-10.1); Carbon Dioxide 16.4 meq/L (21.0-32.0)
--- NOTE | 2018-08-30 08:08 | P.PNCA ---
Subjective Interval history: No angina. Breathing much better than yesterday Medications and Allergies Active Medications: Active Medications Acetaminophen (Tylenol) 650 mg PO Q4H PRN PRN Reason: Temp > 100.4 Al Hydroxide/Mg Hydroxide (Milk Of [place] Liq) 30 ml PO Q12H PRN PRN Reason: Mild Constipation Albuterol (Ventolin Hfa Inh) 2 puff INH Q4H PRN PRN Reason: Shortness Of Breath Albuterol (Duoneb Neb (Prn)) 1 ampul NEB Q2HR NEB PRN PRN Reason: SHORTNESS OF BREATH Last Admin: 08/29/18 08:17 Dose: 1 ampul Amlodipine Besylate (Norvasc) 2.5 mg PO DAILY [facility] Last Admin: 08/29/18 10:02 Dose: 2.5 mg Aspirin (Aspirin Chew) 81 mg PO DAILY [facility] Last Admin: 08/29/18 10:03 Dose: 81 mg Atorvastatin Calcium (Lipitor) 80 mg PO DAILY [facility] Last Admin: 08/29/18 10:02 Dose: 80 mg Bisacodyl (Dulcolax Supp) 10 mg RECTAL DAILY PRN PRN Reason: SEVERE CONSITIPATION Chlorhexidine Gluconate (Peridex 0.12% Oral Kit) 15 ml OROPHARYNG BID@0800, 2000 [facility] Last Admin: 08/29/18 20:28 Dose: Not Given Dextrose (D50w Vial) 50 ml IV.PUSH UNSCH PRN PRN Reason: PER HYPOGLYCEMIA PROTOCOL Fentanyl Citrate (Fentanyl Inj) 50 mcg IV.PUSH Q2H PRN PRN Reason: Any pain 1-10 Furosemide (Lasix Inj) 20 mg IV.PUSH BID@0900,1800 [facility] Glucagon (Glucagon Inj) 1 mg OTHER PRN PRN PRN Reason: for Hypoglycemia Protocol Propofol (Diprivan 1000 Mg/100 Ml Inj) 1,000 mg in 100 mls @ 3.405 mls/hr IV.CONT TITRATE PRN; Protocol PRN Reason: Per Protocol Last Titration: 08/29/18 07:00 Dose: Infused Fentanyl (Fentanyl 10 Mcg/Ml Premix Drip) 2,500 mcg in 250 mls @ 5 mls/hr IV.SIG TITRATE PRN; Protocol PRN Reason: Per Protocol Insulin Aspart (Novolog Insulin Correctional Sugar Inj) 0 unit SQ ACHS AND 3AM ROXANNE; Protocol Last Admin: 08/30/18 03:41 Dose: Not Given Isosorbide Mononitrate (Imdur) 60 mg PO DAILY [facility] Last Admin: 08/29/18 10:02 Dose: 60 mg Lactulose (Lactulose Liq) 30 ml PO DAILY PRN PRN Reason: SEVERE CONSITIPATION Last Admin: 08/30/18 05:46 Dose: 30 ml Metoprolol Tartrate (Lopressor) 50 mg PO BID [facility] Last Admin: 08/29/18 21:55 Dose: Not Given Miscellaneous (Pill Splitter) 1 each OTHER UNSCH PRN PRN Reason: SEE LABEL COMMENTS Miscellaneous Medication () 1 each OROPHARYNG 0000,0400,1200,1600 [facility] Last Admin: 08/30/18 03:42 Dose: Not Given Nitroglycerin (Nitrostat Sl) 0.4 mg SL Q5M PRN PRN Reason: Chest Pain Last Admin: 08/27/18 23:15 Dose: 0.4 mg Nitroglycerin (Nitro-Bid 2% Oint) 1 inch TOPICAL Q6HR [facility] Last Admin: 08/30/18 05:46 Dose: 1 inch Ondansetron HCl (Zofran Inj) 4 mg IV.PUSH Q4H PRN PRN Reason: NAUSEA Pantoprazole Sodium (Protonix) 40 mg PO DAILY [facility] Last Admin: 08/28/18 11:37 Dose: Not Given Pantoprazole Sodium (Protonix Inj) 40 mg IV.PUSH Q12H [facility] Last Admin: 08/30/18 05:45 Dose: 40 mg Potassium Chloride (K-Dur) 20 meq PO BID [facility] Sennosides (Senokot) 17.2 mg PO Q12H PRN PRN Reason: Moderate Constipation Sodium Chloride (Ns Flush) 2 ml IV.FLUSH BID [facility] Last Admin: 08/29/18 20:28 Dose: 2 ml Sodium Chloride (Ns Flush) 2 ml IV.FLUSH PRN PRN PRN Reason: FLUSH AFTER USING IV ACCESS Tamsulosin HCl (Flomax) 0.8 mg PO DAILY [facility] Last Admin: 08/29/18 10:03 Dose: 0.8 mg Ticagrelor (Brilinta) 90 mg PO BID [facility] Last Admin: 08/29/18 20:27 Dose: 90 mg Allergies Allergy/AdvReac Type Severity Reaction Status Date / Time No Known Allergies Allergy Verified 08/27/18 14:04 Home Medications Medication Instructions Recorded Confirmed Type albuterol sulfate [ProAir HFA] 2 puff INHALATION Q4-6H PRN 08/26/18 08/27/18 History amlodipine 2.5 mg PO DAILY 08/26/18 08/27/18 History aspirin 81 mg PO DAILY 08/26/18 08/27/18 History isosorbide mononitrate 60 mg PO DAILY 08/26/18 08/27/18 History metoprolol tartrate 50 mg PO BID 08/26/18 08/27/18 History nitroglycerin 0.4 mg SUBLINGUAL Q5-15M PRN 08/26/18 08/27/18 History pantoprazole 40 mg PO DAILY 08/26/18 08/27/18 History rosuvastatin 40 mg PO DAILY 08/26/18 08/27/18 History tamsulosin 0.8 mg PO DAILY 08/26/18 08/27/18 History ticagrelor [Brilinta] 90 mg PO BID 08/26/18 08/27/18 History Physical Exam Vital signs: Vital Signs 08/29/18 08:04 08/29/18 08:17 08/29/18 09:00 Temperature 98.1 F Pulse Rate 71 69 65 Respiratory Rate 15 14 20 Blood Pressure 129/59 L Pulse Oximetry 100 100 94 L 08/29/18 09:04 08/29/18 10:00 08/29/18 10:04 Temperature Pulse Rate 77 80 80 Respiratory Rate 17 25 H 21 Blood Pressure 134/64 116/61 Pulse Oximetry 95 96 94 L 08/29/18 11:00 08/29/18 11:04 08/29/18 11:45 Temperature Pulse Rate 74 71 Respiratory Rate 17 19 Blood Pressure 101/53 L Pulse Oximetry 98 99 98 08/29/18 12:00 08/29/18 12:04 08/29/18 13:00 Temperature 98.2 F Pulse Rate 65 67 66 Respiratory Rate 15 20 17 Blood Pressure 104/54 L 104/54 L Pulse Oximetry 97 97 98 08/29/18 13:04 08/29/18 14:00 08/29/18 14:04 Temperature Pulse Rate 66 73 71 Respiratory Rate 23 19 19 Blood Pressure 97/52 L 91/49 L Pulse Oximetry 97 98 98 08/29/18 15:00 08/29/18 15:04 08/29/18 16:00 Temperature 98.1 F Pulse Rate 77 77 77 Respiratory Rate 29 H 30 H 25 H Blood Pressure 93/51 L 103/53 L Pulse Oximetry 96 96 96 08/29/18 16:04 08/29/18 17:00 08/29/18 17:04 Temperature Pulse Rate 78 78 77 Respiratory Rate 22 27 H 24 Blood Pressure 103/53 L 92/52 L Pulse Oximetry 96 94 L 94 L 08/29/18 18:00 08/29/18 18:04 08/29/18 19:00 Temperature Pulse Rate 75 76 75 Respiratory Rate 22 22 22 Blood Pressure 111/51 L Pulse Oximetry 98 96 95 08/29/18 19:04 08/29/18 19:17 08/29/18 20:00 Temperature 98 F Pulse Rate 77 77 77 Respiratory Rate 22 20 18 Blood Pressure 90/52 L 95/53 L Pulse Oximetry 96 96 95 08/29/18 20:04 08/29/18 21:00 08/29/18 21:04 Temperature Pulse Rate 76 76 77 Respiratory Rate 20 20 20 Blood Pressure 102/50 L 106/55 L Pulse Oximetry 96 98 98 08/29/18 21:23 08/29/18 22:00 08/29/18 22:04 Temperature Pulse Rate 76 76 Respiratory Rate 19 18 Blood Pressure 110/55 L Pulse Oximetry 98 96 97 08/29/18 23:00 08/29/18 23:04 08/30/18 00:00 Temperature 97.9 F Pulse Rate 78 77 83 Respiratory Rate 18 21 22 Blood Pressure 98/54 L Pulse Oximetry 96 96 98 08/30/18 00:04 08/30/18 01:00 08/30/18 01:04 Temperature Pulse Rate 76 79 78 Respiratory Rate 17 16 18 Blood Pressure 109/52 L 103/54 L Pulse Oximetry 97 96 97 08/30/18 02:00 08/30/18 02:04 08/30/18 03:00 Temperature Pulse Rate 76 74 83 Respiratory Rate 18 16 24 Blood Pressure 117/56 L Pulse Oximetry 98 98 98 08/30/18 03:04 08/30/18 04:00 08/30/18 04:04 Temperature 97.9 F Pulse Rate 86 69 73 Respiratory Rate 22 13 12 Blood Pressure 104/54 L 116/55 L Pulse Oximetry 97 97 99 08/30/18 05:00 08/30/18 05:04 08/30/18 06:00 Temperature Pulse Rate 85 81 91 H Respiratory Rate 25 H 19 19 Blood Pressure 118/56 L Pulse Oximetry 98 98 97 Intake & Output 08/29/18 08/30/18 08/30/18 18:59 06:59 18:59 Intake Total 1100 / 1100 360 / 360 Output Total 1800 / 1800 900 / 900 Balance -700 / -700 -540 / -540 Weight 112.8 kg Intake: IV 1100 / 1100 Diprivan 1000 mg/100 ml Inj 1, 100 / 100 000 mg In 100 ml @ 5 MCG/KG/MIN 3.405 mls/hr IV.CONT TITRATE PRN Rx#:[id number] NS Inj 1,000 ML @ 100 mls/hr IV 1000 / 1000 .CONT .Q10H ROXANNE Rx#:[id number] Oral 360 / 360 Output: Urine 1800 / 1800 900 / 900 Other: # Incontinent Bowel Movements 0 Narrative: Awake, alert, no focal neuro deficits. Coughhing intermittently Neck supple. No JVD discernible Chest diminished breath sounds. Not wheezing like yesterday CV S1S2 RRR, 1-2/6 mild murmur Right groin - no hematoma No edema Results 08/30/18 04:34 08/30/18 04:34 CBC 08/29/18 08/29/18 08/30/18 Range/Units 03:54 15:23 04:34 WBC 9.3 5.9 (4.0-11.0) th/mm3 RBC 2.63 L 2.55 L (4.50-5.90) mil/mm3 Hgb 8.2 L 8.0 L 7.9 L (13.0-17.0) gm/dL Hct 23.8 L 22.6 L 24.5 L (39.0-51.0) % Plt Count 196 180 (150-450) th/mm3 Neut # (Auto) 8.3 H 4.6 (1.8-7.7) th/mm3 Lymph # (Auto) 0.3 L 0.6 L (1.0-4.8) th/mm3 [place] # (Auto) 0.6 0.5 (0.0-0.9) th/mm3 Eos # (Auto) 0.0 0.2 (0.0-0.4) th/mm3 Baso # (Auto) 0.0 0.0 (0.0-0.2) th/mm3 Comprehensive Metabolic Panel 08/29/18 08/30/18 Range/Units 03:54 04:34 Sodium 143 139 (136-145) meq/L Potassium 4.0 3.4 L (3.5-5.1) meq/L Chloride 109 H 108 H (98-107) meq/L Carbon Dioxide 24.7 16.4 L (21.0-32.0) meq/L BUN 36 H 40 H (7-18) mg/dL Creatinine 2.26 H 2.61 H (0.60-1.30) mg/dL Calcium 8.0 L D 7.5 L (8.5-10.1) mg/dL Intake and Output 08/29/18 08/30/18 08/30/18 22:59 06:59 14:59 Intake Total 360 / 360 Output Total 1800 / 1800 900 / 900 Balance -1800 / -1800 -540 / -540 Intake: Oral 360 / 360 Output: Urine 1800 / 1800 900 / 900 Other: # Incontinent Bowel Movements 0 Weight 112.8 kg Assessment and Plan - Assessment (1) Non-ST elevated myocardial infarction (non-STEMI) Code(s): I21.4 - Non-ST elevation (NSTEMI) myocardial infarction Status: Acute (2) Stented coronary artery Code(s): Z95.5 - Presence of coronary angioplasty implant and graft Status: Acute (3) Respiratory failure Code(s): J96.90 - Respiratory failure, unspecified, unspecified whether with hypoxia or hypercapnia Status: Acute (4) GI bleed Code(s): K92.2 - Gastrointestinal hemorrhage, unspecified Status: Acute (5) Chronic kidney disease Code(s): N18.9 - Chronic kidney disease, unspecified Status: Chronic (6) Hypertension Code(s): I10 - Essential (primary) hypertension Status: Chronic - Plan 08/29 - s/p complex stent left main/ left circ/ LAD bifurcation - hopefully thisresolves hisischemia (he has other disease not revascularized - diagonal and distal LCX. Creat has not bumped. Hct drop concerning. Hopefully he can come off vent today. 08/30 - successfully extubated. Wheezing resolved with IV furosemide - I am goig to continue 20mg IV bid but need to back off if creatinine bumps tomorrow. Left main stent has resolved his [place]. HCT holding. Tremendous progress. Greatly appreciate Dr. Velasquez's excellent care.
[2018-08-30] MEDS: Metoprolol Tartrate 25 MG Tablet PO SCH ×2 (09:09→21:04)
[2018-08-30] MEDS: Isosorbide Mononitrate 30 MG ER 24HR Tablet (Imdur) PO SCH (09:09)
[2018-08-30] MEDS: Chlorhexidine 0.12% Oral Kit 15 ML UDC OROPHARYNG SCH ×2 (09:10→20:30)
--- NOTE | 2018-08-30 09:56 | P.PNFP ---
Subjective Interval history: Patient seen and examined at bedside this morning. Patient's sister was present during the examination. He denies any chest pain. He states that he feels much better than yesterday. He does not feel short of breath. He denies abdominal pain, nausea, vomiting, diarrhea, leg swelling. Patient has done well after being extubated yesterday. He is currently on 3 L nasal cannula. Patient's hemoglobin is stable at 7.9. It was discussed with fabrication welder the risks of transfusing Mr. Mcfarland as he so easily goes into heart failure. He is not hypoxic or showing any signs of cardiac ischemia due to hypoxemia, so it was decided, along with the fabrication welder and my attending physician, that we would monitor his hemoglobin for now and not transfuse. The decision was communicated to the patient and his sister. They voiced understanding. <Sondra Gordillo - 08/30/18 10:21> Results - Labs Result diagrams: 08/30/18 04:34 08/30/18 04:34 <uW Garza - 08/30/18 14:07> Abnormal lab results 08/29/18 08/29/18 08/29/18 Range/Units 15:23 16:33 20:49 RBC (4.50-5.90) mil/mm3 Hgb 8.0 L (13.0-17.0) gm/dL Hct 22.6 L (39.0-51.0) % Neut % (Auto) (16.0-70.0) % [place] % (Auto) (0.0-8.0) % Lymph # (Auto) (1.0-4.8) th/mm3 Potassium (3.5-5.1) meq/L Chloride (98-107) meq/L Carbon Dioxide (21.0-32.0) meq/L BUN (7-18) mg/dL Creatinine (0.60-1.30) mg/dL Estimated GFR (>89) mL/min POC Glucose 128 H 154 H (68-110) mg/dl Calcium (8.5-10.1) mg/dL 08/30/18 08/30/18 08/30/18 Range/Units 03:01 04:34 04:34 RBC 2.55 L (4.50-5.90) mil/mm3 Hgb 7.9 L (13.0-17.0) gm/dL Hct 24.5 L (39.0-51.0) % Neut % (Auto) 77.1 H (16.0-70.0) % [place] % (Auto) 8.9 H (0.0-8.0) % Lymph # (Auto) 0.6 L (1.0-4.8) th/mm3 Potassium 3.4 L (3.5-5.1) meq/L Chloride 108 H (98-107) meq/L Carbon Dioxide 16.4 L (21.0-32.0) meq/L BUN 40 H (7-18) mg/dL Creatinine 2.61 H (0.60-1.30) mg/dL Estimated GFR 23 L (>89) mL/min POC Glucose 141 H (68-110) mg/dl Calcium 7.5 L (8.5-10.1) mg/dL 08/30/18 08/30/18 Range/Units 09:03 12:23 RBC (4.50-5.90) mil/mm3 Hgb (13.0-17.0) gm/dL Hct (39.0-51.0) % Neut % (Auto) (16.0-70.0) % [place] % (Auto) (0.0-8.0) % Lymph # (Auto) (1.0-4.8) th/mm3 Potassium (3.5-5.1) meq/L Chloride (98-107) meq/L Carbon Dioxide (21.0-32.0) meq/L BUN (7-18) mg/dL Creatinine (0.60-1.30) mg/dL Estimated GFR (>89) mL/min POC Glucose 136 H 155 H (68-110) mg/dl Calcium (8.5-10.1) mg/dL Short CBC 08/29/18 08/30/18 Range/Units 15:23 04:34 WBC 5.9 (4.0-11.0) th/mm3 Hgb 8.0 L 7.9 L (13.0-17.0) gm/dL Hct 22.6 L 24.5 L (39.0-51.0) % Plt Count 180 (150-450) th/mm3 BMP 08/30/18 04:34 Sodium 139 Potassium 3.4 L Chloride 108 H Carbon Dioxide 16.4 L BUN 40 H Creatinine 2.61 H Calcium 7.5 L <Wu Garza - 08/30/18 14:07> Abnormal lab results 08/29/18 08/29/18 08/29/18 Range/Units 12:02 15:23 16:33 RBC (4.50-5.90) mil/mm3 Hgb 8.0 L (13.0-17.0) gm/dL Hct 22.6 L (39.0-51.0) % Neut % (Auto) (16.0-70.0) % [place] % (Auto) (0.0-8.0) % Lymph # (Auto) (1.0-4.8) th/mm3 Potassium (3.5-5.1) meq/L Chloride (98-107) meq/L Carbon Dioxide (21.0-32.0) meq/L BUN (7-18) mg/dL Creatinine (0.60-1.30) mg/dL Estimated GFR (>89) mL/min POC Glucose 151 H 128 H (68-110) mg/dl Calcium (8.5-10.1) mg/dL 08/29/18 08/30/18 08/30/18 Range/Units 20:49 03:01 04:34 RBC 2.55 L (4.50-5.90) mil/mm3 Hgb 7.9 L (13.0-17.0) gm/dL Hct 24.5 L (39.0-51.0) % Neut % (Auto) 77.1 H (16.0-70.0) % [place] % (Auto) 8.9 H (0.0-8.0) % Lymph # (Auto) 0.6 L (1.0-4.8) th/mm3 Potassium (3.5-5.1) meq/L Chloride (98-107) meq/L Carbon Dioxide (21.0-32.0) meq/L BUN (7-18) mg/dL Creatinine (0.60-1.30) mg/dL Estimated GFR (>89) mL/min POC Glucose 154 H 141 H (68-110) mg/dl Calcium (8.5-10.1) mg/dL 08/30/18 08/30/18 Range/Units 04:34 09:03 RBC (4.50-5.90) mil/mm3 Hgb (13.0-17.0) gm/dL Hct (39.0-51.0) % Neut % (Auto) (16.0-70.0) % [place] % (Auto) (0.0-8.0) % Lymph # (Auto) (1.0-4.8) th/mm3 Potassium 3.4 L (3.5-5.1) meq/L Chloride 108 H (98-107) meq/L Carbon Dioxide 16.4 L (21.0-32.0) meq/L BUN 40 H (7-18) mg/dL Creatinine 2.61 H (0.60-1.30) mg/dL Estimated GFR 23 L (>89) mL/min POC Glucose 136 H (68-110) mg/dl Calcium 7.5 L (8.5-10.1) mg/dL Short CBC 08/29/18 08/30/18 Range/Units 15:23 04:34 WBC 5.9 (4.0-11.0) th/mm3 Hgb 8.0 L 7.9 L (13.0-17.0) gm/dL Hct 22.6 L 24.5 L (39.0-51.0) % Plt Count 180 (150-450) th/mm3 [facility] 08/30/18 04:34 Sodium 139 Potassium 3.4 L Chloride 108 H Carbon Dioxide 16.4 L BUN 40 H Creatinine 2.61 H Calcium 7.5 L <Sondra Gordillo - 08/30/18 09:56> Physical Exam Vital signs: Vital Signs 08/29/18 14:00 08/29/18 14:04 08/29/18 15:00 Temperature Pulse Rate 73 71 77 Respiratory Rate 19 19 29 H Blood Pressure 91/49 L Pulse Oximetry 98 98 96 08/29/18 15:04 08/29/18 16:00 08/29/18 16:04 Temperature 98.1 F Pulse Rate 77 77 78 Respiratory Rate 30 H 25 H 22 Blood Pressure 93/51 L 103/53 L 103/53 L Pulse Oximetry 96 96 96 08/29/18 17:00 08/29/18 17:04 08/29/18 18:00 Temperature Pulse Rate 78 77 75 Respiratory Rate 27 H 24 22 Blood Pressure 92/52 L Pulse Oximetry 94 L 94 L 98 08/29/18 18:04 08/29/18 19:00 08/29/18 19:04 Temperature Pulse Rate 76 75 77 Respiratory Rate 22 22 22 Blood Pressure 111/51 L 90/52 L Pulse Oximetry 96 95 96 08/29/18 19:17 08/29/18 20:00 08/29/18 20:04 Temperature 98 F Pulse Rate 77 77 76 Respiratory Rate 20 18 20 Blood Pressure 95/53 L 102/50 L Pulse Oximetry 96 95 96 08/29/18 21:00 08/29/18 21:04 08/29/18 21:23 Temperature Pulse Rate 76 77 Respiratory Rate 20 20 Blood Pressure 106/55 L Pulse Oximetry 98 98 98 08/29/18 22:00 08/29/18 22:04 08/29/18 23:00 Temperature Pulse Rate 76 76 78 Respiratory Rate 19 18 18 Blood Pressure 110/55 L Pulse Oximetry 96 97 96 08/29/18 23:04 08/30/18 00:00 08/30/18 00:04 Temperature 97.9 F Pulse Rate 77 83 76 Respiratory Rate 21 22 17 Blood Pressure 98/54 L 109/52 L Pulse Oximetry 96 98 97 08/30/18 01:00 08/30/18 01:04 08/30/18 02:00 Temperature Pulse Rate 79 78 76 Respiratory Rate 16 18 18 Blood Pressure 103/54 L Pulse Oximetry 96 97 98 08/30/18 02:04 08/30/18 03:00 08/30/18 03:04 Temperature Pulse Rate 74 83 86 Respiratory Rate 16 24 22 Blood Pressure 117/56 L 104/54 L Pulse Oximetry 98 98 97 08/30/18 04:00 08/30/18 04:04 08/30/18 05:00 Temperature 97.9 F Pulse Rate 69 73 85 Respiratory Rate 13 12 25 H Blood Pressure 116/55 L Pulse Oximetry 97 99 98 08/30/18 05:04 08/30/18 06:00 08/30/18 07:00 Temperature Pulse Rate 81 91 H 81 Respiratory Rate 19 19 16 Blood Pressure 118/56 L 124/57 L Pulse Oximetry 98 97 97 08/30/18 08:00 08/30/18 09:00 08/30/18 10:00 Temperature 97.9 F Pulse Rate 83 82 77 Respiratory Rate 20 20 20 Blood Pressure 127/58 L 130/58 L 114/54 L Pulse Oximetry 98 98 97 08/30/18 10:01 08/30/18 11:00 08/30/18 11:42 Temperature Pulse Rate 69 82 Respiratory Rate 19 Blood Pressure 116/53 L Pulse Oximetry 97 96 08/30/18 12:00 08/30/18 13:00 Temperature 97.7 F Pulse Rate 71 75 Respiratory Rate 19 25 H Blood Pressure 96/53 L 113/58 L Pulse Oximetry 97 96 Intake & Output 08/29/18 08/30/18 08/30/18 18:59 06:59 18:59 Intake Total 1100 / 1100 360 / 360 Output Total 1800 / 1800 900 / 900 Balance -700 / -700 -540 / -540 Weight 112.8 kg Intake: IV 1100 / 1100 Diprivan 1000 mg/100 ml Inj 1, 100 / 100 000 mg In 100 ml @ 5 MCG/KG/MIN 3.405 mls/hr IV.CONT TITRATE PRN Rx#:[id number] NS Inj 1,000 ML @ 100 mls/hr IV 1000 / 1000 .CONT .Q10H ROXANNE Rx#:[id number] Oral 360 / 360 Output: Urine 1800 / 1800 900 / 900 Other: Date of Last Bowel Movement 08/30/18 # Incontinent Bowel Movements 0 <Wu Garza K - 08/30/18 14:07> Vital Signs 08/29/18 10:00 08/29/18 10:04 08/29/18 11:00 Temperature Pulse Rate 80 80 74 Respiratory Rate 25 H 21 17 Blood Pressure 116/61 Pulse Oximetry 96 94 L 98 08/29/18 11:04 08/29/18 11:45 08/29/18 12:00 Temperature 98.2 F Pulse Rate 71 65 Respiratory Rate 19 15 Blood Pressure 101/53 L 104/54 L Pulse Oximetry 99 98 97 08/29/18 12:04 08/29/18 13:00 08/29/18 13:04 Temperature Pulse Rate 67 66 66 Respiratory Rate 20 17 23 Blood Pressure 104/54 L 97/52 L Pulse Oximetry 97 98 97 08/29/18 14:00 08/29/18 14:04 08/29/18 15:00 Temperature Pulse Rate 73 71 77 Respiratory Rate 19 19 29 H Blood Pressure 91/49 L Pulse Oximetry 98 98 96 08/29/18 15:04 08/29/18 16:00 08/29/18 16:04 Temperature 98.1 F Pulse Rate 77 77 78 Respiratory Rate 30 H 25 H 22 Blood Pressure 93/51 L 103/53 L 103/53 L Pulse Oximetry 96 96 96 08/29/18 17:00 08/29/18 17:04 08/29/18 18:00 Temperature Pulse Rate 78 77 75 Respiratory Rate 27 H 24 22 Blood Pressure 92/52 L Pulse Oximetry 94 L 94 L 98 08/29/18 18:04 08/29/18 19:00 08/29/18 19:04 Temperature Pulse Rate 76 75 77 Respiratory Rate 22 22 22 Blood Pressure 111/51 L 90/52 L Pulse Oximetry 96 95 96 08/29/18 19:17 08/29/18 20:00 08/29/18 20:04 Temperature 98 F Pulse Rate 77 77 76 Respiratory Rate 20 18 20 Blood Pressure 95/53 L 102/50 L Pulse Oximetry 96 95 96 08/29/18 21:00 08/29/18 21:04 08/29/18 21:23 Temperature Pulse Rate 76 77 Respiratory Rate 20 20 Blood Pressure 106/55 L Pulse Oximetry 98 98 98 08/29/18 22:00 08/29/18 22:04 08/29/18 23:00 Temperature Pulse Rate 76 76 78 Respiratory Rate 19 18 18 Blood Pressure 110/55 L Pulse Oximetry 96 97 96 08/29/18 23:04 08/30/18 00:00 08/30/18 00:04 Temperature 97.9 F Pulse Rate 77 83 76 Respiratory Rate 21 22 17 Blood Pressure 98/54 L 109/52 L Pulse Oximetry 96 98 97 08/30/18 01:00 08/30/18 01:04 08/30/18 02:00 Temperature Pulse Rate 79 78 76 Respiratory Rate 16 18 18 Blood Pressure 103/54 L Pulse Oximetry 96 97 98 08/30/18 02:04 08/30/18 03:00 08/30/18 03:04 Temperature Pulse Rate 74 83 86 Respiratory Rate 16 24 22 Blood Pressure 117/56 L 104/54 L Pulse Oximetry 98 98 97 08/30/18 04:00 08/30/18 04:04 08/30/18 05:00 Temperature 97.9 F Pulse Rate 69 73 85 Respiratory Rate 13 12 25 H Blood Pressure 116/55 L Pulse Oximetry 97 99 98 08/30/18 05:04 08/30/18 06:00 Temperature Pulse Rate 81 91 H Respiratory Rate 19 19 Blood Pressure 118/56 L Pulse Oximetry 98 97 Intake & Output 08/29/18 08/30/18 08/30/18 18:59 06:59 18:59 Intake Total 1100 / 1100 360 / 360 Output Total 1800 / 1800 900 / 900 Balance -700 / -700 -540 / -540 Weight 112.8 kg Intake: IV 1100 / 1100 Diprivan 1000 mg/100 ml Inj 1, 100 / 100 000 mg In 100 ml @ 5 MCG/KG/MIN 3.405 mls/hr IV.CONT TITRATE PRN Rx#:[id number] NS Inj 1,000 ML @ 100 mls/hr IV 1000 / 1000 .CONT .Q10H ROXANNE Rx#:[id number] Oral 360 / 360 Output: Urine 1800 / 1800 900 / 900 Other: # Incontinent Bowel Movements 0 <Sondra Gordillo - 08/30/18 09:56> Narrative: GENERAL: Pleasant elderly male lying in bed, no respiratory distress SKIN: No rashes. Cool and dry. HEAD: Atraumatic. Normocephalic. EYES: EOMI. No scleral icterus. No injection or drainage. ENT: Nose without drainage. MMM. CARDIOVASCULAR: Regular rate and rhythm. No murmur appreciated. No gallops or rubs. RESPIRATORY: No respiratory distress. Breath sounds equal bilaterally. ABDOMEN: Abdomen soft, non-tender, without guarding. Diastasis recti MUSCULOSKELETAL: no lower extremity edema noted. NEUROLOGICAL: Awake and alert. Normal speech. Answering questions appropriately. Motor and sensory grossly within normal limits. Moving all extremities. <Sondra Gordillo - 08/30/18 10:21> Assessment and Plan - Assessment (1) Unstable angina Code(s): I20.0 - Unstable angina Status: Acute (2) Pulmonary edema Code(s): J81.1 - Chronic pulmonary edema Status: Acute (3) GI bleed Code(s): K92.2 - Gastrointestinal hemorrhage, unspecified Status: Acute (4) Hypertension Code(s): I10 - Essential (primary) hypertension Status: Chronic (5) Chronic kidney disease Code(s): N18.9 - Chronic kidney disease, unspecified Status: Chronic (6) History of CVA (cerebrovascular accident) Code(s): Z86.73 - Personal history of transient ischemic attack (TIA), and cerebral infarction without residual deficits Status: Chronic (7) GERD (gastroesophageal reflux disease) Code(s): K21.9 - Gastro-esophageal reflux disease without esophagitis Status: Chronic (8) Diabetes Code(s): E11.9 - Type 2 diabetes mellitus without complications Status: Chronic (9) Enlarged prostate Code(s): N40.0 - Benign prostatic hyperplasia without lower urinary tract symptoms Status: Chronic (10) Anemia Code(s): D64.9 - Anemia, unspecified Status: Chronic (11) Hypocalcemia Code(s): E83.51 - Hypocalcemia Status: Acute (12) Hypokalemia Code(s): E87.6 - Hypokalemia Status: Acute (13) Nutrition, metabolism, and development symptoms Code(s): R63.8 - Other symptoms and signs concerning food and fluid intake Status: Acute <Wu Garza - 08/30/18 14:07> (1) Unstable angina Code(s): I20.0 - Unstable angina Status: Acute Plan: Patient with a significant cardiac history s/p CABGx5 and recent cardiac catheterization who presented with chest pain and dyspnea. -Consult Dr. Quinones, interventional cardiology -s/p stenting to his left main/left circumflex/and LAD bifurcation by cardiology on 08/28 -Continue telemetry Continue home medications: - Brilinta 90 mg BID - aspirin 81 mg - Isosorbide Mononitrate 60 mg PO daily - nitroglycerin 0.4 mg SL Q5 min PRN - metoprolol 50 mg BID HOLD - amlodipine 2.5mg daily (2) Pulmonary edema Code(s): J81.1 - Chronic pulmonary edema Status: Acute Plan: Diuresis per critical care- 20 mg IV Lasix BID Monitor oxygenation and respiratory status closely Supplemental oxygen if needed, patient currently on 3L via [place] this morning Duonebs q2h prn BiPAP if needed (3) GI bleed Code(s): K92.2 - Gastrointestinal hemorrhage, unspecified Status: Acute Plan: Patient with a 3 day history of black stools prior to admission Consult gastroenterology s/p EGD on 08/28 which showed no active bleeding Hgb noted to decline today to 7.9, will continue to monitor H/H at least q12h Will transfuse patient if it continues to drop, but will be cautious due to patient's heart failure or he becomes symptomatic including chest pain, hypotension, dyspnea Consider GI bleeding scan or repeat CT abd/pelvis w/o if Hgb declines further Monitor for active bleeding Continue Protonix 40 mg IV bid at this time Supportive care (4) Hypertension Code(s): I10 - Essential (primary) hypertension Status: Chronic Plan: 118/56-Stable with current regimen. Monitor for hypotension. Continue home metoprolol. -Hold amlodipine (5) Chronic kidney disease Code(s): N18.9 - Chronic kidney disease, unspecified Status: Chronic Plan: Patient with known CKD. Creatinine @ 2.6 -Continue to monitor renal function, I/Os while diuresing -Avoid contrast dye and nephrotoxic medications (6) History of CVA (cerebrovascular accident) Code(s): Z86.73 - Personal history of transient ischemic attack (TIA), and cerebral infarction without residual deficits Status: Chronic Plan: Patient has no neurological deficits from CVA in 2013. S/P bilateral carotid endarterectomy (7) GERD (gastroesophageal reflux disease) Code(s): K21.9 - Gastro-esophageal reflux disease without esophagitis Status: Chronic Plan: Continue pantoprazole (8) Diabetes Code(s): E11.9 - Type 2 diabetes mellitus without complications Status: Chronic Plan: Patient is not on home medications based on home medication lists. He reports that he is a diabetic. -low dose sliding scale insulin- has not required insulin (9) Enlarged prostate Code(s): N40.0 - Benign prostatic hyperplasia without lower urinary tract symptoms Status: Chronic Plan: -Continue tamsulosin, hold for hypotension (10) Anemia Code(s): D64.9 - Anemia, unspecified Status: Chronic Plan: patient has a history of anemia with baseline Hgb ~9.0. - Plan as above, continue to monitor (11) Hypocalcemia Code(s): E83.51 - Hypocalcemia Status: Acute Plan: Calcium 7.5 today likely do to diuretic. -Calcium carbonate chews 500 mg BID -Continue to monitor (12) Hypokalemia Code(s): E87.6 - Hypokalemia Status: Acute Plan: Potassium 3.4 today due to diuretic use. - K Dur 20meq PO BID (13) Nutrition, metabolism, and development symptoms Code(s): R63.8 - Other symptoms and signs concerning food and fluid intake Status: Acute Plan: Fluids: per PO Electrolytes: continue to monitor and replete as needed Nutrition: heart healthy GI ppx: Protonix 40 mg IV q12h DVT ppx: b/l SCDs, chemical anticoagulation contraindicated at this time, monitoring H/H, continue brilinta <Sondra Gordillo - 08/30/18 10:22> - Assessment and Plan Very pleasant 83 year old man with a h/o significant CAD s/p 5-vessel CABG in 2008, angina, CKD stage 4, HTN, DM, PAD, BPH, GERD with Franco's esophagus, questionable diagnosis of COPD who presented with a one-month history of chest pains and dyspnea as well as a few days of having black, tarry stools. The patient underwent a cardiac cath the day prior to admission which showed closure of 2 of his 5 grafts. Cardiology and gastroenterology were consulted given his angina and suspected upper GI bleed. The patient's hospitalization was complicated by flash pulmonary edema requiring BiPAP and diuresis and transfer to the ICU overnight on 08/27. The patient underwent an EGD on 08/28 which showed no active bleeding, and is s/p stenting to his left main/left circumflex/and LAD bifurcation by cardiology on 08/28. Patient extubated on . <Sondra Gordillo - 08/30/18 10:21> - Attending Attestation The exam, history, and the medical decision-making described in the above note were completed with the assistance of the resident physician. I reviewed and agree with the findings presented. I attest that I had a [id number] encounter with the patient on the same day, and personally performed and documented my assessment and findings in the medical record. Agree with resident note, appears clinically to be well diuresed without pitting edema or crackles. His Cr started to bump slightly today and diuresis lowered, trying to find a good maintenance dose for him now. He is down to 3L of O2 by [place] now and he is chest pain free for the first time in over a month. D/ W Dr Agrawal, will keep patient in ICU at least another day <Wu Garza 08/30/18 14:07>
--- NOTE | 2018-08-30 12:01 | P.PNCC ---
Subjective Subjective Remarks/Hospital Course: 83-year-old gentleman, the patient of Dr Quinones from cardiology with history of hypertension, coronary artery disease, GERD with Franco's esophagus, DM with peripheral neuropathy, BPH, PAD, angina, arthritis, history of CABG, CKD stage 4 , tinnitus, and questionable of COPD. He has had 1 month chest pain with dyspnea and sputum production. The patient underwent cardiac catheterization that demonstrates Mild aortic stenosis, Left main and triple vessel disease, and Three out of five patent bypass grafts. The patient has had 2-day history of black stool but no bright red blood. The patient denies use of iron supplements. Denies loose stools but has constipation. Patient is on Brillinta and took last dose (?) last night. Hgb was 9.5 today. He feels no chest pain in the wrist and he feels more congested when breathing in; does not report trouble getting air out. He was admitted initially to family medicine residency service for an evaluation of melanotic stool, however developed worsening of shortness of breath requiring BiPAP placement and transfer to ICU. The chest x-ray demonstrates worsening pulmonary edema. 08/28:Endoscopy this morning patient required BiPAP noninvasive ventilation. Dr. Quinones and I discussed this case at length earlier this morning and decided it would be most prudent to perform the endoscopy with airway protection via orotracheal intubation and continue such through the process of the cardiac catheterization and intervention. This has worked well and allowed us to control oxygenation and blood pressure for the various procedures. We are trying to keep the patient well-hydrated in the face of underlying interstitial edema so as to avoid any renal injury on top of his underlying chronic kidney disease. 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 We will continue to follow his GFR closely. 08/29: His lungs were clear this morning and he tolerated extubation without difficulty. On reevaluation about an hour after extubation he has audible wheezes and some crackles. His creatinine is held up nicely following his interventional procedure yesterday but it is time to start aggressively diuresing him. He merits quite close watch in today and may require BiPAP noninvasive ventilation if he does not respond well to the diuretics. 08/30: Good response to diuretics after extubation yesterday. Wheezing resolved completely and respiratory effort quite comfortable thereafter. I think his fluid balance is about right at the moment, perhaps even a little dry. He is alert and awake and will drink appropriately to his thirst. Diuretics probably need to be added to his discharge regimen and the Lasix 20 twice daily dose is probably a good place to start. Objective Vital Signs / I&O: Vital Signs 08/29/18 11:45 08/29/18 12:00 08/29/18 12:04 Temperature 98.2 F Pulse Rate 65 67 Respiratory Rate 15 20 Blood Pressure 104/54 L 104/54 L Pulse Oximetry 98 97 97 08/29/18 13:00 08/29/18 13:04 08/29/18 14:00 Temperature Pulse Rate 66 66 73 Respiratory Rate 17 23 19 Blood Pressure 97/52 L Pulse Oximetry 98 97 98 08/29/18 14:04 08/29/18 15:00 08/29/18 15:04 Temperature Pulse Rate 71 77 77 Respiratory Rate 19 29 H 30 H Blood Pressure 91/49 L 93/51 L Pulse Oximetry 98 96 96 08/29/18 16:00 08/29/18 16:04 08/29/18 17:00 Temperature 98.1 F Pulse Rate 77 78 78 Respiratory Rate 25 H 22 27 H Blood Pressure 103/53 L 103/53 L Pulse Oximetry 96 96 94 L 08/29/18 17:04 08/29/18 18:00 08/29/18 18:04 Temperature Pulse Rate 77 75 76 Respiratory Rate 24 22 22 Blood Pressure 92/52 L 111/51 L Pulse Oximetry 94 L 98 96 08/29/18 19:00 08/29/18 19:04 08/29/18 19:17 Temperature Pulse Rate 75 77 77 Respiratory Rate 22 22 20 Blood Pressure 90/52 L 95/53 L Pulse Oximetry 95 96 96 08/29/18 20:00 08/29/18 20:04 08/29/18 21:00 Temperature 98 F Pulse Rate 77 76 76 Respiratory Rate 18 20 20 Blood Pressure 102/50 L Pulse Oximetry 95 96 98 08/29/18 21:04 08/29/18 21:23 08/29/18 22:00 Temperature Pulse Rate 77 76 Respiratory Rate 20 19 Blood Pressure 106/55 L Pulse Oximetry 98 98 96 08/29/18 22:04 08/29/18 23:00 08/29/18 23:04 Temperature Pulse Rate 76 78 77 Respiratory Rate 18 18 21 Blood Pressure 110/55 L 98/54 L Pulse Oximetry 97 96 96 08/30/18 00:00 08/30/18 00:04 08/30/18 01:00 Temperature 97.9 F Pulse Rate 83 76 79 Respiratory Rate 22 17 16 Blood Pressure 109/52 L Pulse Oximetry 98 97 96 08/30/18 01:04 08/30/18 02:00 08/30/18 02:04 Temperature Pulse Rate 78 76 74 Respiratory Rate 18 18 16 Blood Pressure 103/54 L 117/56 L Pulse Oximetry 97 98 98 08/30/18 03:00 08/30/18 03:04 08/30/18 04:00 Temperature 97.9 F Pulse Rate 83 86 69 Respiratory Rate 24 22 13 Blood Pressure 104/54 L Pulse Oximetry 98 97 97 08/30/18 04:04 08/30/18 05:00 08/30/18 05:04 Temperature Pulse Rate 73 85 81 Respiratory Rate 12 25 H 19 Blood Pressure 116/55 L 118/56 L Pulse Oximetry 99 98 98 08/30/18 06:00 08/30/18 10:01 Temperature Pulse Rate 91 H Respiratory Rate 19 Blood Pressure Pulse Oximetry 97 97 Intake & Output 08/29/18 08/30/18 08/30/18 18:59 06:59 18:59 Intake Total 1100 / 1100 360 / 360 Output Total 1800 / 1800 900 / 900 Balance -700 / -700 -540 / -540 Weight 112.8 kg Intake: IV 1100 / 1100 Diprivan 1000 mg/100 ml Inj 1, 100 / 100 000 mg In 100 ml @ 5 MCG/KG/MIN 3.405 mls/hr IV.CONT TITRATE PRN Rx#:[id number] NS Inj 1,000 ML @ 100 mls/hr IV 1000 / 1000 .CONT .Q10H ROXANNE Rx#:[id number] Oral 360 / 360 Output: Urine 1800 / 1800 900 / 900 Other: # Incontinent Bowel Movements 0 Result Diagrams: 08/30/18 04:34 08/30/18 04:34 Objective Remarks: - Constitutional Intubated, sedated, normotensive - Routine HEENT Exam Head: Present: normocephalic, atraumatic Eye: Present: PERRL, normal accommodation ENT: Present: mucous membranes moist - Routine Neck Exam Present: supple, full ROM. absent: JVD, carotid bruit - Routine Respiratory Exam Present: Clear godinez with no obstructive noises. A few dependent crackles but for the most part no adventitious sounds. - Routine Cardiovascular Exam Present: RRR, S1, S2, no JVD. - Routine Abdominal Exam Present: soft, normoactive bowel sounds. No guarding. Absent: tenderness, distended - Routine Extremities Exam Warm, well-perfused. Absent: cyanosis, clubbing, edema - Routine Skin Exam Present: Warm, dry absent: cyanosis, erythema - Routine Neurological Exam Present: moving all extremities, conversant, oriented, follows commands. Assessment and Plan - Assessment and Plan Plan: Respiratory failure -CXR demonstrates pulmonary edema, now resolved -Aggressive diuresis -DuoNeb scheduled and as needed -Hold diuretic short-term after cardiac cath, resume after midnight -Extubated 08/29. Required diuretic therapy thereafter. Pulmonary edema -Status post cardiac catheterization 2 days ago with patent 3 out of 5 grafts -Successful PCI left main and proximal LAD today 08/[address] Quinones -Oxygenation acceptable with mechanical ventilation -Extubated 08/29 in the morning GI bleed -Upper GI bleed with melena stools -PPI -Gastroenterology consult appreciated -No active bleeding found in upper GI tract -Increase Protonix to twice daily Franco esophagus -PPI Coronary artery disease -Brilinta per cardiology -DAPT initiated Chronic kidney disease, stage IV -I's and O's strict -Monitor creatinine and electrolyte levels Diabetes mellitus -Insulin sliding scale Hypertension -Norvasc -Isosorbide -Metoprolol BPH -Flomax DVT GI prophylaxis -Teds SCDs -Pharmacological DVT prophylaxis per GI -Protonix Overall impression: Good progress following left main PCI. Fluid balance probably about right. Dual antiplatelet therapy started, watch closely for any recurrent gastrointestinal bleeding.
[2018-08-31] MEDS: Oral Hygiene Kit OROPHARYNG SCH ×2 (01:56→05:40)
[2018-08-31] MEDS: Insulin NovoLOG Aspart Correctional Sugar Inj SQ SCH ×5 (03:55→20:49)
[2018-08-31 04:54] LABS: Baso # (Auto) 0.1 th/mm3 (0.0-0.2); Baso % (Auto) 0.8 % (0.0-2.0); Eos # (Auto) 0.2 th/mm3 (0.0-0.4); Hematocrit 24.6 % (39.0-51.0); Hemoglobin 8.2 gm/dL (13.0-17.0); Lymph # (Auto) 0.5 th/mm3 (1.0-4.8); Mean Corpuscular HGB Conc 33.3 % (32.0-36.0); Mean Corpuscular Hemoglobin 30.3 pg (27.0-34.0); Mean Corpuscular Volume 91.2 fL (80.0-100.0); Mean Platelet Volume 7.6 fL (7.0-11.0); Mono # (Auto) 0.5 th/mm3 (0.0-0.9); Mono % (Auto) 7.8 % (0.0-8.0); Neut # (Auto) 5.2 th/mm3 (1.8-7.7); Neut % (Auto) 80.4 % (16.0-70.0); Platelet Count 201 th/mm3 (150-450); Red Cell Distribution Width 15.4 % (11.6-17.2); White Blood Count 6.4 th/mm3 (4.0-11.0)
[2018-08-31 05:25] LABS: Calcium 7.7 mg/dL (8.5-10.1); Carbon Dioxide 25.5 meq/L (21.0-32.0); Potassium 3.5 meq/L (3.5-5.1)
[2018-08-31] MEDS: Pantoprazole Inj 40 MG Vial IV.PUSH SCH (06:33)
[2018-08-31] MEDS: Isosorbide Mononitrate 30 MG ER 24HR Tablet (Imdur) PO SCH (08:42)
[2018-08-31] MEDS: Furosemide 20 MG Tablet PO SCH ×2 (08:42→17:47)
[2018-08-31] MEDS: Metoprolol Tartrate 25 MG Tablet PO SCH ×2 (08:42→20:48)
--- NOTE | 2018-08-31 09:01 | P.PNFP ---
Subjective Interval history: Patient seen and examined at bedside this morning. He denies any chest pain, abdominal pain. He reports a decreased appetite. He did have a bowel movement yesterday that was brown and nonbloody, not black. He is very concerned about getting out of the hospital and wondering what the care plan is. We discussed with him that we would like to transition him from IV Lasix to p.o. Lasix today and see how he tolerates that. We also discussed with him the importance of participating in physical therapy and occupational therapy today. The patient voiced understanding. The resident team discussed with teacher of family and consumer science, Dr. Velasquez, about the transfer of the patient to the floor, our plan for the patient to start PT, and transitioning to p.o. medications. Dr. Velasquez agreed with our plan. Patient will also need a follow-up with GI as an outpatient likely for his low hemoglobin. <Sondra Gordillo - 08/31/18 09:01> Results - Labs Result diagrams: 08/31/18 04:32 08/31/18 04:32 <Wu Garza - 08/31/18 11:10> Abnormal lab results 08/30/18 08/30/18 08/30/18 Range/Units 12:23 18:13 21:07 RBC (4.50-5.90) mil/mm3 Hgb (13.0-17.0) gm/dL Hct (39.0-51.0) % Neut % (Auto) (16.0-70.0) % Lymph % (Auto) (9.0-44.0) % Lymph # (Auto) (1.0-4.8) th/mm3 BUN (7-18) mg/dL Creatinine (0.60-1.30) mg/dL Estimated GFR (>89) mL/min POC Glucose 155 H 111 H 144 H (68-110) mg/dl Random Glucose (74-106) mg/dL Calcium (8.5-10.1) mg/dL Prot Corrected Calcium (8.5-10.1) mg/dL Total Protein (6.4-8.2) g/dL 08/31/18 08/31/18 08/31/18 Range/Units 03:48 04:32 04:32 RBC 2.70 L (4.50-5.90) mil/mm3 Hgb 8.2 L (13.0-17.0) gm/dL Hct 24.6 L (39.0-51.0) % Neut % (Auto) 80.4 H (16.0-70.0) % Lymph % (Auto) 8.0 L (9.0-44.0) % Lymph # (Auto) 0.5 L (1.0-4.8) th/mm3 BUN 42 H (7-18) mg/dL Creatinine 2.55 H (0.60-1.30) mg/dL Estimated GFR 24 L (>89) mL/min POC Glucose 125 H (68-110) mg/dl Random Glucose 122 H (74-106) mg/dL Calcium 7.7 L (8.5-10.1) mg/dL Prot Corrected Calcium 8.3 L (8.5-10.1) mg/dL Total Protein 6.0 L D (6.4-8.2) g/dL 08/31/18 Range/Units 08:08 RBC (4.50-5.90) mil/mm3 Hgb (13.0-17.0) gm/dL Hct (39.0-51.0) % Neut % (Auto) (16.0-70.0) % Lymph % (Auto) (9.0-44.0) % Lymph # (Auto) (1.0-4.8) th/mm3 BUN (7-18) mg/dL Creatinine (0.60-1.30) mg/dL Estimated GFR (>89) mL/min POC Glucose 122 H (68-110) mg/dl Random Glucose (74-106) mg/dL Calcium (8.5-10.1) mg/dL Prot Corrected Calcium (8.5-10.1) mg/dL Total Protein (6.4-8.2) g/dL Short CBC 08/31/18 Range/Units 04:32 WBC 6.4 (4.0-11.0) th/mm3 Hgb 8.2 L (13.0-17.0) gm/dL Hct 24.6 L (39.0-51.0) % Plt Count 201 (150-450) th/mm3 BMP 08/31/18 08/31/18 04:32 04:32 Sodium 141 Potassium 3.5 Chloride 106 Carbon Dioxide 25.5 D BUN 42 H Creatinine 2.55 H Calcium 7.7 L Cancelled <Wu Garza - 08/31/18 11:10> Abnormal lab results 08/30/18 08/30/18 08/30/18 Range/Units 09:03 12:23 18:13 RBC (4.50-5.90) mil/mm3 Hgb (13.0-17.0) gm/dL Hct (39.0-51.0) % Neut % (Auto) (16.0-70.0) % Lymph % (Auto) (9.0-44.0) % Lymph # (Auto) (1.0-4.8) th/mm3 BUN (7-18) mg/dL Creatinine (0.60-1.30) mg/dL Estimated GFR (>89) mL/min POC Glucose 136 H 155 H 111 H (68-110) mg/dl Random Glucose (74-106) mg/dL Calcium (8.5-10.1) mg/dL 08/30/18 08/31/18 08/31/18 Range/Units 21:07 03:48 04:32 RBC 2.70 L (4.50-5.90) mil/mm3 Hgb 8.2 L (13.0-17.0) gm/dL Hct 24.6 L (39.0-51.0) % Neut % (Auto) 80.4 H (16.0-70.0) % Lymph % (Auto) 8.0 L (9.0-44.0) % Lymph # (Auto) 0.5 L (1.0-4.8) th/mm3 BUN (7-18) mg/dL Creatinine (0.60-1.30) mg/dL Estimated GFR (>89) mL/min POC Glucose 144 H 125 H (68-110) mg/dl Random Glucose (74-106) mg/dL Calcium (8.5-10.1) mg/dL 08/31/18 08/31/18 Range/Units 04:32 08:08 RBC (4.50-5.90) mil/mm3 Hgb (13.0-17.0) gm/dL Hct (39.0-51.0) % Neut % (Auto) (16.0-70.0) % Lymph % (Auto) (9.0-44.0) % Lymph # (Auto) (1.0-4.8) th/mm3 BUN 42 H (7-18) mg/dL Creatinine 2.55 H (0.60-1.30) mg/dL Estimated GFR 24 L (>89) mL/min POC Glucose 122 H (68-110) mg/dl Random Glucose 122 H (74-106) mg/dL Calcium 7.7 L (8.5-10.1) mg/dL Short CBC 08/31/18 Range/Units 04:32 WBC 6.4 (4.0-11.0) th/mm3 Hgb 8.2 L (13.0-17.0) gm/dL Hct 24.6 L (39.0-51.0) % Plt Count 201 (150-450) th/mm3 BMP 08/31/18 04:32 Sodium 141 Potassium 3.5 Chloride 106 Carbon Dioxide 25.5 D BUN 42 H Creatinine 2.55 H Calcium 7.7 L <Sondra Gordillo - 08/31/18 09:01> Physical Exam Vital signs: Vital Signs 08/30/18 11:42 08/30/18 12:00 08/30/18 13:00 Temperature 97.7 F Pulse Rate 82 71 75 Respiratory Rate 19 25 H Blood Pressure 96/53 L 113/58 L Pulse Oximetry 97 96 08/30/18 13:04 08/30/18 14:00 08/30/18 15:00 Temperature Pulse Rate 74 80 75 Respiratory Rate 23 24 20 Blood Pressure 113/58 L 103/55 L 103/51 L Pulse Oximetry 96 95 97 08/30/18 16:00 08/30/18 17:00 08/30/18 18:00 Temperature 97.5 F L Pulse Rate 72 72 74 Respiratory Rate 22 19 18 Blood Pressure 112/57 L 122/58 L 120/57 L Pulse Oximetry 96 97 97 08/30/18 19:00 08/30/18 19:04 08/30/18 20:00 Temperature 98.6 F Pulse Rate 86 78 83 Respiratory Rate 29 H 21 22 Blood Pressure 121/56 L Pulse Oximetry 96 96 97 08/30/18 20:04 08/30/18 20:54 08/30/18 21:00 Temperature Pulse Rate 82 80 Respiratory Rate 26 H 17 Blood Pressure 121/56 L Pulse Oximetry 96 95 98 08/30/18 21:04 08/30/18 22:00 08/30/18 22:04 Temperature Pulse Rate 75 83 75 Respiratory Rate 16 20 10 L Blood Pressure 131/58 L 123/56 L Pulse Oximetry 97 95 99 08/30/18 23:00 08/30/18 23:04 08/31/18 00:00 Temperature 97.6 F Pulse Rate 79 77 70 Respiratory Rate 31 H 21 15 Blood Pressure 121/56 L Pulse Oximetry 98 96 97 08/31/18 00:04 08/31/18 01:00 08/31/18 01:04 Temperature Pulse Rate 71 68 70 Respiratory Rate 14 13 20 Blood Pressure 122/58 L Pulse Oximetry 97 95 94 L 08/31/18 02:00 08/31/18 02:04 08/31/18 03:00 Temperature Pulse Rate 68 69 71 Respiratory Rate 19 21 20 Blood Pressure 126/62 Pulse Oximetry 96 95 96 08/31/18 03:04 08/31/18 04:00 08/31/18 04:04 Temperature Pulse Rate 69 71 67 Respiratory Rate 16 18 16 Blood Pressure 132/61 104/51 L Pulse Oximetry 96 94 L 97 08/31/18 05:00 08/31/18 05:04 08/31/18 07:00 Temperature Pulse Rate 71 72 73 Respiratory Rate 16 18 17 Blood Pressure 96/47 L 128/60 Pulse Oximetry 99 08/31/18 07:57 08/31/18 08:00 08/31/18 09:00 Temperature 97.5 F L Pulse Rate 77 71 Respiratory Rate 19 Blood Pressure 114/57 L Pulse Oximetry 99 96 08/31/18 09:22 08/31/18 10:00 Temperature Pulse Rate 71 Respiratory Rate 26 H Blood Pressure Pulse Oximetry 94 L 95 Intake & Output 08/30/18 08/31/18 08/31/18 18:59 06:59 18:59 Intake Total 960 / 960 480 / 480 Output Total 1500 / 1500 1000 / 1000 Balance -540 / -540 -520 / -520 Weight 109.8 kg Intake: Oral 960 / 960 480 / 480 Output: Urine 1500 / 1500 1000 / 1000 Other: Date of Last Bowel Movement 08/30/18 08/30/18 08/31/18 # Incontinent Bowel Movements 1 <Heiland,Wu K - 08/31/18 11:10> Vital Signs 08/30/18 09:00 08/30/18 10:00 08/30/18 10:01 Temperature Pulse Rate 82 77 Respiratory Rate 20 20 Blood Pressure 130/58 L 114/54 L Pulse Oximetry 98 97 97 08/30/18 11:00 08/30/18 11:42 08/30/18 12:00 Temperature 97.7 F Pulse Rate 69 82 71 Respiratory Rate 19 19 Blood Pressure 116/53 L 96/53 L Pulse Oximetry 96 97 08/30/18 13:00 08/30/18 13:04 08/30/18 14:00 Temperature Pulse Rate 75 74 80 Respiratory Rate 25 H 23 24 Blood Pressure 113/58 L 113/58 L 103/55 L Pulse Oximetry 96 96 95 08/30/18 15:00 08/30/18 16:00 08/30/18 17:00 Temperature 97.5 F L Pulse Rate 75 72 72 Respiratory Rate 20 22 19 Blood Pressure 103/51 L 112/57 L 122/58 L Pulse Oximetry 97 96 97 08/30/18 18:00 08/30/18 19:00 08/30/18 19:04 Temperature 98.6 F Pulse Rate 74 86 78 Respiratory Rate 18 29 H 21 Blood Pressure 120/57 L 121/56 L Pulse Oximetry 97 96 96 08/30/18 20:00 08/30/18 20:04 08/30/18 20:54 Temperature Pulse Rate 83 82 Respiratory Rate 22 26 H Blood Pressure 121/56 L Pulse Oximetry 97 96 95 08/30/18 21:00 08/30/18 21:04 08/30/18 22:00 Temperature Pulse Rate 80 75 83 Respiratory Rate 17 16 20 Blood Pressure 131/58 L Pulse Oximetry 98 97 95 08/30/18 22:04 08/30/18 23:00 08/30/18 23:04 Temperature Pulse Rate 75 79 77 Respiratory Rate 10 L 31 H 21 Blood Pressure 123/56 L 121/56 L Pulse Oximetry 99 98 96 08/31/18 00:00 08/31/18 00:04 08/31/18 01:00 Temperature 97.6 F Pulse Rate 70 71 68 Respiratory Rate 15 14 13 Blood Pressure Pulse Oximetry 97 97 95 08/31/18 01:04 08/31/18 02:00 08/31/18 02:04 Temperature Pulse Rate 70 68 69 Respiratory Rate 20 19 21 Blood Pressure 122/58 L 126/62 Pulse Oximetry 94 L 96 95 08/31/18 03:00 08/31/18 03:04 08/31/18 04:00 Temperature Pulse Rate 71 69 71 Respiratory Rate 20 16 18 Blood Pressure 132/61 Pulse Oximetry 96 96 94 L 08/31/18 04:04 08/31/18 05:00 08/31/18 05:04 Temperature Pulse Rate 67 71 72 Respiratory Rate 16 16 18 Blood Pressure 104/51 L 96/47 L Pulse Oximetry 97 08/31/18 07:57 08/31/18 08:00 Temperature Pulse Rate Respiratory Rate Blood Pressure Pulse Oximetry 99 97 Intake & Output 08/30/18 08/31/18 08/31/18 18:59 06:59 18:59 Intake Total 960 / 960 480 / 480 Output Total 1500 / 1500 1000 / 1000 Balance -540 / -540 -520 / -520 Weight 109.8 kg Intake: Oral 960 / 960 480 / 480 Output: Urine 1500 / 1500 1000 / 1000 Other: Date of Last Bowel Movement 08/30/18 08/30/18 # Incontinent Bowel Movements 1 <Sondra Gordillo - 08/31/18 09:01> Narrative: GENERAL: Pleasant elderly male lying in bed, no respiratory distress SKIN: No rashes. Cool and dry. HEAD: Atraumatic. Normocephalic. EYES: EOMI. No scleral icterus. No injection or drainage. ENT: Nose without drainage. MMM. CARDIOVASCULAR: Regular rate and rhythm. No murmur appreciated. No gallops or rubs. RESPIRATORY: No respiratory distress. Breath sounds equal bilaterally. ABDOMEN: Abdomen soft, non-tender, without guarding. Diastasis recti MUSCULOSKELETAL: no lower extremity edema noted. NEUROLOGICAL: Awake and alert. Normal speech. Answering questions appropriately. Motor and sensory grossly within normal limits. Moving all extremities. <Sondra Gordillo - 08/31/18 09:11> Assessment and Plan - Assessment (1) Unstable angina Code(s): I20.0 - Unstable angina Status: Acute (2) Pulmonary edema Code(s): J81.1 - Chronic pulmonary edema Status: Acute (3) GI bleed Code(s): K92.2 - Gastrointestinal hemorrhage, unspecified Status: Acute (4) Hypertension Code(s): I10 - Essential (primary) hypertension Status: Chronic (5) Chronic kidney disease Code(s): N18.9 - Chronic kidney disease, unspecified Status: Chronic (6) History of CVA (cerebrovascular accident) Code(s): Z86.73 - Personal history of transient ischemic attack (TIA), and cerebral infarction without residual deficits Status: Chronic (7) GERD (gastroesophageal reflux disease) Code(s): K21.9 - Gastro-esophageal reflux disease without esophagitis Status: Chronic (8) Diabetes Code(s): E11.9 - Type 2 diabetes mellitus without complications Status: Chronic (9) Enlarged prostate Code(s): N40.0 - Benign prostatic hyperplasia without lower urinary tract symptoms Status: Chronic (10) Anemia Code(s): D64.9 - Anemia, unspecified Status: Chronic (11) Hypocalcemia Code(s): E83.51 - Hypocalcemia Status: Acute (12) Hypokalemia Code(s): E87.6 - Hypokalemia Status: Acute (13) Nutrition, metabolism, and development symptoms Code(s): R63.8 - Other symptoms and signs concerning food and fluid intake Status: Acute <Wu Garza - 08/31/18 11:10> (1) Unstable angina Code(s): I20.0 - Unstable angina Status: Acute Plan: Patient with a significant cardiac history s/p CABGx5 and recent cardiac catheterization who presented with chest pain and dyspnea. Patient has no chest pain today. -Consult Dr. Quinones, interventional cardiology -s/p stenting to his left main/left circumflex/and LAD bifurcation by cardiology on 08/28 -Continue telemetry Continue home medications: - Brilinta 90 mg BID - aspirin 81 mg - Isosorbide Mononitrate 60 mg PO daily - nitroglycerin 0.4 mg SL Q5 min PRN - metoprolol 50 mg BID HOLD - amlodipine 2.5mg daily (2) Pulmonary edema Code(s): J81.1 - Chronic pulmonary edema Status: Acute Plan: Lasix 20 mg PO BID Monitor oxygenation and respiratory status closely Supplemental oxygen if needed, patient currently not requiring any O2 Duonebs q2h prn BiPAP if needed (3) GI bleed Code(s): K92.2 - Gastrointestinal hemorrhage, unspecified Status: Acute Plan: Patient with a 3 day history of black stools prior to admission Consult gastroenterology s/p EGD on 08/28 which showed no active bleeding Hgb noted to decline today to 8.2, will continue to monitor H/H daily Will transfuse patient if it continues to drop or he becomes symptomatic including chest pain, hypotension, dyspnea, but will be cautious due to patient' s heart failure Consider GI bleeding scan or repeat CT abd/pelvis w/o if Hgb declines further Monitor for active bleeding Continue Protonix 40 mg daily Supportive care Patient will follow up with GI for further workup as an outpatient (4) Hypertension Code(s): I10 - Essential (primary) hypertension Status: Chronic Plan: Stable with current regimen. Monitor for hypotension. Continue home metoprolol. -Hold amlodipine (5) Chronic kidney disease Code(s): N18.9 - Chronic kidney disease, unspecified Status: Chronic Plan: Patient with known CKD. Creatinine @ 2.55 today -Continue to monitor renal function, I/Os while diuresing -Avoid contrast dye and nephrotoxic medications (6) History of CVA (cerebrovascular accident) Code(s): Z86.73 - Personal history of transient ischemic attack (TIA), and cerebral infarction without residual deficits Status: Chronic Plan: Patient has no neurological deficits from CVA in 2013. S/P bilateral carotid endarterectomy (7) GERD (gastroesophageal reflux disease) Code(s): K21.9 - Gastro-esophageal reflux disease without esophagitis Status: Chronic Plan: Continue pantoprazole (8) Diabetes Code(s): E11.9 - Type 2 diabetes mellitus without complications Status: Chronic Plan: Patient is not on home medications based on home medication lists. He reports that he is a diabetic. -low dose sliding scale insulin- has not required insulin (9) Enlarged prostate Code(s): N40.0 - Benign prostatic hyperplasia without lower urinary tract symptoms Status: Chronic Plan: -Continue tamsulosin, hold for hypotension (10) Anemia Code(s): D64.9 - Anemia, unspecified Status: Chronic Plan: patient has a history of anemia with baseline Hgb ~9.0. - Plan as above, continue to monitor (11) Hypocalcemia Code(s): E83.51 - Hypocalcemia Status: Acute Plan: Calcium 7.7 today likely do to diuretic. -Calcium carbonate chews 500 mg BID - Corrected calcium PENDING -Continue to monitor (12) Hypokalemia Code(s): E87.6 - Hypokalemia Status: Acute Plan: Potassium 3.5 today due to diuretic use. - K Dur 20meq PO BID (13) Nutrition, metabolism, and development symptoms Code(s): R63.8 - Other symptoms and signs concerning food and fluid intake Status: Acute Plan: Fluids: per PO Electrolytes: continue to monitor and replete as needed Nutrition: heart healthy GI ppx: Protonix 40 mg daily DVT ppx: b/l SCDs, chemical anticoagulation contraindicated at this time, monitoring H/H, continue brilinta <Sondra Gordillo - 08/31/18 09:04> - Assessment and Plan Very pleasant 83 year old man with a h/o significant CAD s/p 5-vessel CABG in 2008, angina, CKD stage 4, HTN, DM, PAD, BPH, GERD with Franco's esophagus, questionable diagnosis of COPD who presented with a one-month history of chest pains and dyspnea as well as a few days of having black, tarry stools. The patient underwent a cardiac cath the day prior to admission which showed closure of 2 of his 5 grafts. Cardiology and gastroenterology were consulted given his angina and suspected upper GI bleed. The patient's hospitalization was complicated by flash pulmonary edema requiring BiPAP and diuresis and transfer to the ICU overnight on 08/27. The patient underwent an EGD on 08/28 which showed no active bleeding, and is s/p stenting to his left main/left circumflex/and LAD bifurcation by cardiology on 08/28. Patient extubated on . Transferred to the floor 08/31. <Sondra Gordillo - 08/31/18 09:11> - Attending Attestation The exam, history, and the medical decision-making described in the above note were completed with the assistance of the resident physician. I reviewed and agree with the findings presented. I attest that I had a [id number] encounter with the patient on the same day, and personally performed and documented my assessment and findings in the medical record. Overall doing well today, still no cp/sob. He has been light headed and had a headache and his BPs have been low. Clinically euvolemic, still 3/6 MEGHAN. lungs clear, mild pitting edema and left leg always more non pitting edema than left. He is off O2 today. His Hgb and Cr have remained stable around 8 and 2.5 respectively. Transitioned to PO diuretics. Will closely monitor BP and RN will let us know how his symptoms and pressures are over the next hour and we may need to decrease anti hypertensive medications. reviewed cardiology notes. Plan to transfer to floor today and monitor on PO diuretics. Hope to d/c in next 1-2 days if remains stable. <Wu Garza - 08/31/18 11:10>
--- NOTE | 2018-08-31 09:29 | P.PNCC ---
Subjective Subjective Remarks/Hospital Course: 83-year-old gentleman, the patient of Dr Quinones from cardiology with history of hypertension, coronary artery disease, GERD with Franco's esophagus, DM with peripheral neuropathy, BPH, PAD, angina, arthritis, history of CABG, CKD stage 4 , tinnitus, and questionable of COPD. He has had 1 month chest pain with dyspnea and sputum production. The patient underwent cardiac catheterization that demonstrates Mild aortic stenosis, Left main and triple vessel disease, and Three out of five patent bypass grafts. The patient has had 2-day history of black stool but no bright red blood. The patient denies use of iron supplements. Denies loose stools but has constipation. Patient is on Brillinta and took last dose (?) last night. Hgb was 9.5 today. He feels no chest pain in the wrist and he feels more congested when breathing in; does not report trouble getting air out. He was admitted initially to family medicine residency service for an evaluation of melanotic stool, however developed worsening of shortness of breath requiring BiPAP placement and transfer to ICU. The chest x-ray demonstrates worsening pulmonary edema. 08/28:Endoscopy this morning patient required BiPAP noninvasive ventilation. Dr. Quinones and I discussed this case at length earlier this morning and decided it would be most prudent to perform the endoscopy with airway protection via orotracheal intubation and continue such through the process of the cardiac catheterization and intervention. This has worked well and allowed us to control oxygenation and blood pressure for the various procedures. We are trying to keep the patient well-hydrated in the face of underlying interstitial edema so as to avoid any renal injury on top of his underlying chronic kidney disease. The plan is to back off on the diuretics immediately following the procedure, continue gentle hydration with isotonic fluid, and resume diuretics in the grades 1 6 tutor. We will continue to follow his GFR closely. 08/29: His lungs were clear this morning and he tolerated extubation without difficulty. On reevaluation about an hour after extubation he has audible wheezes and some crackles. His creatinine is held up nicely following his interventional procedure yesterday but it is time to start aggressively diuresing him. He merits quite close watch in today and may require BiPAP noninvasive ventilation if he does not respond well to the diuretics. 08/30: Good response to diuretics after extubation yesterday. Wheezing resolved completely and respiratory effort quite comfortable thereafter. I think his fluid balance is about right at the moment, perhaps even a little dry. He is alert and awake and will drink appropriately to his thirst. Diuretics probably need to be added to his discharge regimen and the Lasix 20 twice daily dose is probably a good place to start. 08/31: Breathing comfortably. Fluid balance appears about right. Renal function holding up well. Remains a little weak. Should be fine for him to start with physical therapy. Objective Vital Signs / I&O: Vital Signs 08/30/18 10:00 08/30/18 10:01 08/30/18 11:00 Temperature Pulse Rate 77 69 Respiratory Rate 20 19 Blood Pressure 114/54 L 116/53 L Pulse Oximetry 97 97 96 08/30/18 11:42 08/30/18 12:00 08/30/18 13:00 Temperature 97.7 F Pulse Rate 82 71 75 Respiratory Rate 19 25 H Blood Pressure 96/53 L 113/58 L Pulse Oximetry 97 96 08/30/18 13:04 08/30/18 14:00 08/30/18 15:00 Temperature Pulse Rate 74 80 75 Respiratory Rate 23 24 20 Blood Pressure 113/58 L 103/55 L 103/51 L Pulse Oximetry 96 95 97 08/30/18 16:00 08/30/18 17:00 08/30/18 18:00 Temperature 97.5 F L Pulse Rate 72 72 74 Respiratory Rate 22 19 18 Blood Pressure 112/57 L 122/58 L 120/57 L Pulse Oximetry 96 97 97 08/30/18 19:00 08/30/18 19:04 08/30/18 20:00 Temperature 98.6 F Pulse Rate 86 78 83 Respiratory Rate 29 H 21 22 Blood Pressure 121/56 L Pulse Oximetry 96 96 97 08/30/18 20:04 08/30/18 20:54 08/30/18 21:00 Temperature Pulse Rate 82 80 Respiratory Rate 26 H 17 Blood Pressure 121/56 L Pulse Oximetry 96 95 98 08/30/18 21:04 08/30/18 22:00 08/30/18 22:04 Temperature Pulse Rate 75 83 75 Respiratory Rate 16 20 10 L Blood Pressure 131/58 L 123/56 L Pulse Oximetry 97 95 99 08/30/18 23:00 08/30/18 23:04 11/17/18 00:00 Temperature 97.6 F Pulse Rate 79 77 70 Respiratory Rate 31 H 21 15 Blood Pressure 121/56 L Pulse Oximetry 98 96 97 08/31/18 00:04 08/31/18 01:00 08/31/18 01:04 Temperature Pulse Rate 71 68 70 Respiratory Rate 14 13 20 Blood Pressure 122/58 L Pulse Oximetry 97 95 94 L 08/31/18 02:00 08/31/18 02:04 08/31/18 03:00 Temperature Pulse Rate 68 69 71 Respiratory Rate 19 21 20 Blood Pressure 126/62 Pulse Oximetry 96 95 96 08/31/18 03:04 08/31/18 04:00 08/31/18 04:04 Temperature Pulse Rate 69 71 67 Respiratory Rate 16 18 16 Blood Pressure 132/61 104/51 L Pulse Oximetry 96 94 L 97 08/31/18 05:00 08/31/18 05:04 08/31/18 07:57 Temperature Pulse Rate 71 72 Respiratory Rate 16 18 Blood Pressure 96/47 L Pulse Oximetry 99 08/31/18 08:00 Temperature Pulse Rate Respiratory Rate Blood Pressure Pulse Oximetry 97 Intake & Output 08/30/18 08/31/18 08/31/18 18:59 06:59 18:59 Intake Total 960 / 960 480 / 480 Output Total 1500 / 1500 1000 / 1000 Balance -540 / -540 -520 / -520 Weight 109.8 kg Intake: Oral 960 / 960 480 / 480 Output: Urine 1500 / 1500 1000 / 1000 Other: Date of Last Bowel Movement 08/30/18 08/30/18 # Incontinent Bowel Movements 1 Result Diagrams: 08/31/18 04:32 08/31/18 04:32 Objective Remarks: - Constitutional Intubated, sedated, normotensive - Routine HEENT Exam Head: Present: normocephalic, atraumatic Eye: Present: PERRL, normal accommodation ENT: Present: mucous membranes moist - Routine Neck Exam Present: supple, full ROM. absent: JVD, carotid bruit - Routine Respiratory Exam Present: Clear godinez with no obstructive airway noises, no adventitious sounds. - Routine Cardiovascular Exam Present: RRR, S1, S2, no JVD. - Routine Abdominal Exam Present: soft, normoactive bowel sounds. No guarding. Absent: tenderness, distended - Routine Extremities Exam Warm, well-perfused. Absent: cyanosis, clubbing, edema - Routine Skin Exam Present: Warm, dry absent: cyanosis, erythema - Routine Neurological Exam Present: moving all extremities, conversant, oriented, follows commands. Assessment and Plan - Assessment and Plan Plan: Respiratory failure -DuoNeb scheduled and as needed -Extubated 08/29. Required diuretic therapy thereafter. Pulmonary edema -Status post cardiac catheterization 2 days ago with patent 3 out of 5 grafts -Successful PCI left main and proximal LAD today 08/[address] Quinones GI bleed -Upper GI bleed with melena stools -PPI -Gastroenterology consult appreciated -No active bleeding found in upper GI tract -Increase Protonix to twice daily -Lower GI endoscopy probably necessary Franco esophagus -PPI Coronary artery disease -DAPT initiated Chronic kidney disease, stage IV -I's and O's strict -Monitor creatinine and electrolyte levels Diabetes mellitus -Insulin sliding scale Hypertension -Norvasc -Isosorbide -Metoprolol BPH -Flomax DVT GI prophylaxis -Teds SCDs -Pharmacological DVT prophylaxis per GI -Protonix Overall impression: Good progress following left main PCI. Fluid balance probably about right. Dual antiplatelet therapy started, watch closely for any recurrent gastrointestinal bleeding. Renal function holding up nicely. Start physical therapy.
--- NOTE | 2018-08-31 10:02 | P.PNCA ---
Subjective Interval history: Pt doing great, no cp/sob Medications and Allergies Active Medications: Active Medications Acetaminophen (Tylenol) 650 mg PO Q4H PRN PRN Reason: Temp > 100.4 Al Hydroxide/Mg Hydroxide (Milk Of Magnesia Liq) 30 ml PO Q12H PRN PRN Reason: Mild Constipation Albuterol (Ventolin Hfa Inh) 2 puff INH Q4H PRN PRN Reason: Shortness Of Breath Albuterol (Duoneb Neb (Prn)) 1 ampul NEB Q2HR NEB PRN PRN Reason: SHORTNESS OF BREATH Last Admin: 08/29/18 08:17 Dose: 1 ampul Amlodipine Besylate (Norvasc) 2.5 mg PO DAILY [facility] Last Admin: 08/29/18 10:02 Dose: 2.5 mg Aspirin (Aspirin Chew) 81 mg PO DAILY [facility] Last Admin: 08/31/18 08:42 Dose: 81 mg Atorvastatin Calcium (Lipitor) 80 mg PO DAILY [facility] Last Admin: 08/31/18 08:42 Dose: 80 mg Bisacodyl (Dulcolax Supp) 10 mg RECTAL DAILY PRN PRN Reason: SEVERE CONSITIPATION Calcium Carbonate (Tums Chew) 500 mg CHEW BID [facility] Last Admin: 08/31/18 08:42 Dose: 500 mg Dextrose (D50w Vial) 50 ml IV.PUSH UNSCH PRN PRN Reason: PER HYPOGLYCEMIA PROTOCOL Furosemide (Lasix) 20 mg PO BID@0900,1800 [facility] Last Admin: 08/31/18 08:42 Dose: 20 mg Glucagon (Glucagon Inj) 1 mg OTHER PRN PRN PRN Reason: for Hypoglycemia Protocol Insulin Aspart (Novolog Insulin Correctional Sugar Inj) 0 unit SQ ACHS AND 3AM ROXANNE; Protocol Last Admin: 08/31/18 08:43 Dose: Not Given Isosorbide Mononitrate (Imdur) 60 mg PO DAILY [facility] Last Admin: 08/31/18 08:42 Dose: 60 mg Lactulose (Lactulose Liq) 30 ml PO DAILY PRN PRN Reason: SEVERE CONSITIPATION Last Admin: 08/30/18 05:46 Dose: 30 ml Melatonin (Melatonin) 5 mg PO HS PRN PRN Reason: INSOMNIA Metoprolol Tartrate (Lopressor) 50 mg PO BID [facility] Last Admin: 08/31/18 08:42 Dose: 50 mg Miscellaneous (Pill Splitter) 1 each OTHER UNSCH PRN PRN Reason: SEE LABEL COMMENTS Nitroglycerin (Nitrostat Sl) 0.4 mg SL Q5M PRN PRN Reason: Chest Pain Last Admin: 08/27/18 23:15 Dose: 0.4 mg Nitroglycerin (Nitro-Bid 2% Oint) 1 inch TOPICAL Q6HR [facility] Last Admin: 08/31/18 06:33 Dose: 1 inch Ondansetron HCl (Zofran Inj) 4 mg IV.PUSH Q4H PRN PRN Reason: NAUSEA Pantoprazole Sodium (Protonix) 40 mg PO DAILY [facility] Last Admin: 08/31/18 08:42 Dose: 40 mg Potassium Chloride (K-Dur) 20 meq PO BID [facility] Last Admin: 08/31/18 08:42 Dose: 20 meq Sennosides (Senokot) 17.2 mg PO Q12H PRN PRN Reason: Moderate Constipation Sodium Chloride (Ns Flush) 2 ml IV.FLUSH BID [facility] Last Admin: 08/31/18 08:43 Dose: 2 ml Sodium Chloride (Ns Flush) 2 ml IV.FLUSH PRN PRN PRN Reason: FLUSH AFTER USING IV ACCESS Tamsulosin HCl (Flomax) 0.8 mg PO DAILY [facility] Last Admin: 08/31/18 08:42 Dose: 0.8 mg Ticagrelor (Brilinta) 90 mg PO BID [facility] Last Admin: 08/31/18 08:41 Dose: 90 mg Allergies Allergy/AdvReac Type Severity Reaction Status Date / Time No Known Allergies Allergy Verified 08/27/18 14:04 Home Medications Medication Instructions Recorded Confirmed Type albuterol sulfate [ProAir HFA] 2 puff INHALATION Q4-6H PRN 08/26/18 08/27/18 History amlodipine 2.5 mg PO DAILY 08/26/18 08/27/18 History aspirin 81 mg PO DAILY 08/26/18 08/27/18 History isosorbide mononitrate 60 mg PO DAILY 08/26/18 08/27/18 History metoprolol tartrate 50 mg PO BID 08/26/18 08/27/18 History nitroglycerin 0.4 mg SUBLINGUAL Q5-15M PRN 08/26/18 08/27/18 History pantoprazole 40 mg PO DAILY 08/26/18 08/27/18 History rosuvastatin 40 mg PO DAILY 08/26/18 08/27/18 History tamsulosin 0.8 mg PO DAILY 08/26/18 08/27/18 History ticagrelor [Brilinta] 90 mg PO BID 08/26/18 08/27/18 History Physical Exam Vital signs: Vital Signs 08/30/18 10:00 08/30/18 10:01 08/30/18 11:00 Temperature Pulse Rate 77 69 Respiratory Rate 20 19 Blood Pressure 114/54 L 116/53 L Pulse Oximetry 97 97 96 08/30/18 11:42 08/30/18 12:00 08/30/18 13:00 Temperature 97.7 F Pulse Rate 82 71 75 Respiratory Rate 19 25 H Blood Pressure 96/53 L 113/58 L Pulse Oximetry 97 96 08/30/18 13:04 08/30/18 14:00 08/30/18 15:00 Temperature Pulse Rate 74 80 75 Respiratory Rate 23 24 20 Blood Pressure 113/58 L 103/55 L 103/51 L Pulse Oximetry 96 95 97 08/30/18 16:00 08/30/18 17:00 08/30/18 18:00 Temperature 97.5 F L Pulse Rate 72 72 74 Respiratory Rate 22 19 18 Blood Pressure 112/57 L 122/58 L 120/57 L Pulse Oximetry 96 97 97 08/30/18 19:00 08/30/18 19:04 08/30/18 20:00 Temperature 98.6 F Pulse Rate 86 78 83 Respiratory Rate 29 H 21 22 Blood Pressure 121/56 L Pulse Oximetry 96 96 97 08/30/18 20:04 08/30/18 20:54 08/30/18 21:00 Temperature Pulse Rate 82 80 Respiratory Rate 26 H 17 Blood Pressure 121/56 L Pulse Oximetry 96 95 98 08/30/18 21:04 08/30/18 22:00 08/30/18 22:04 Temperature Pulse Rate 75 83 75 Respiratory Rate 16 20 10 L Blood Pressure 131/58 L 123/56 L Pulse Oximetry 97 95 99 08/30/18 23:00 08/30/18 23:04 08/31/18 00:00 Temperature 97.6 F Pulse Rate 79 77 70 Respiratory Rate 31 H 21 15 Blood Pressure 121/56 L Pulse Oximetry 98 96 97 08/31/18 00:04 08/31/18 01:00 08/31/18 01:04 Temperature Pulse Rate 71 68 70 Respiratory Rate 14 13 20 Blood Pressure 122/58 L Pulse Oximetry 97 95 94 L 08/31/18 02:00 08/31/18 02:04 08/31/18 03:00 Temperature Pulse Rate 68 69 71 Respiratory Rate 19 21 20 Blood Pressure 126/62 Pulse Oximetry 96 95 96 08/31/18 03:04 08/31/18 04:00 08/31/18 04:04 Temperature Pulse Rate 69 71 67 Respiratory Rate 16 18 16 Blood Pressure 132/61 104/51 L Pulse Oximetry 96 94 L 97 08/31/18 05:00 08/31/18 05:04 08/31/18 07:57 Temperature Pulse Rate 71 72 Respiratory Rate 16 18 Blood Pressure 96/47 L Pulse Oximetry 99 08/31/18 08:00 Temperature Pulse Rate Respiratory Rate Blood Pressure Pulse Oximetry 97 Intake & Output 08/30/18 08/31/18 08/31/18 18:59 06:59 18:59 Intake Total 960 / 960 480 / 480 Output Total 1500 / 1500 1000 / 1000 Balance -540 / -540 -520 / -520 Weight 109.8 kg Intake: Oral 960 / 960 480 / 480 Output: Urine 1500 / 1500 1000 / 1000 Other: Date of Last Bowel Movement 08/30/18 08/30/18 # Incontinent Bowel Movements 1 - Constitutional no acute distress - Routine HEENT Exam Head: Present: normocephalic Eye: Present: EOMI ENT: Present: mucous membranes moist - Routine Neck Exam Present: supple. Absent: JVD - Routine Respiratory Exam Present: CTA bilaterally. Absent: accessory muscle use - Routine Cardiovascular Exam Present: RRR, murmur Comments: 2/ 6 MEGHAN - Routine Abdominal Exam Present: soft - Routine Extremities Exam Absent: edema Results 08/31/18 04:32 08/31/18 04:32 CBC 08/29/18 08/30/18 08/31/18 Range/Units 15:23 04:34 04:32 WBC 5.9 6.4 (4.0-11.0) th/mm3 RBC 2.55 L 2.70 L (4.50-5.90) mil/mm3 Hgb 8.0 L 7.9 L 8.2 L (13.0-17.0) gm/dL Hct 22.6 L 24.5 L 24.6 L (39.0-51.0) % Plt Count 180 201 (150-450) th/mm3 Neut # (Auto) 4.6 5.2 (1.8-7.7) th/mm3 Lymph # (Auto) 0.6 L 0.5 L (1.0-4.8) th/mm3 [place] # (Auto) 0.5 0.5 (0.0-0.9) th/mm3 Eos # (Auto) 0.2 0.2 (0.0-0.4) th/mm3 Baso # (Auto) 0.0 0.1 (0.0-0.2) th/mm3 Comprehensive Metabolic Panel 08/30/18 08/31/18 08/31/18 Range/Units 04:34 04:32 04:32 Sodium 139 141 (136-145) meq/L Potassium 3.4 L 3.5 (3.5-5.1) meq/L Chloride 108 H 106 (98-107) meq/L Carbon Dioxide 16.4 L 25.5 D (21.0-32.0) meq/L BUN 40 H 42 H (7-18) mg/dL Creatinine 2.61 H 2.55 H (0.60-1.30) mg/dL Calcium 7.5 L 7.7 L Cancelled (8.5-10.1) mg/dL Total Protein 6.0 L D Cancelled (6.4-8.2) g/dL Intake and Output 08/30/18 08/31/18 08/31/18 22:59 06:59 14:59 Intake Total 960 / 960 480 / 480 Output Total 1500 / 1500 1000 / 1000 Balance -540 / -540 -520 / -520 Intake: Oral 960 / 960 480 / 480 Output: Urine 1500 / 1500 1000 / 1000 Other: Date of Last Bowel Movement 08/30/18 08/30/18 # Incontinent Bowel Movements 1 Weight 109.8 kg Assessment and Plan - Assessment (1) Non-ST elevated myocardial infarction (non-STEMI) Code(s): I21.4 - Non-ST elevation (NSTEMI) myocardial infarction Status: Acute Plan: s/p PCI, doing well, continue medical mgt. (2) Stented coronary artery Code(s): Z95.5 - Presence of coronary angioplasty implant and graft Status: Acute (3) Respiratory failure Code(s): J96.90 - Respiratory failure, unspecified, unspecified whether with hypoxia or hypercapnia Status: Acute Plan: now extubated, doing great (4) GI bleed Code(s): K92.2 - Gastrointestinal hemorrhage, unspecified Status: Acute (5) Chronic kidney disease Code(s): N18.9 - Chronic kidney disease, unspecified Status: Chronic (6) Hypertension Code(s): I10 - Essential (primary) hypertension Status: Chronic - Plan Cr. down today, continue gentle diuresis
[2018-08-31] MEDS: Melatonin 5 MG Tablet PO PRN (20:48)
[2018-09-01] MEDS: Insulin NovoLOG Aspart Correctional Sugar Inj SQ SCH ×5 (02:35→20:54)
[2018-09-01 08:39] LABS: Baso % (Auto) 0.8 % (0.0-2.0); Eos # (Auto) 0.2 th/mm3 (0.0-0.4); Eos % (Auto) 3.1 % (0.0-4.0); Hematocrit 22.8 % (39.0-51.0); Lymph # (Auto) 0.6 th/mm3 (1.0-4.8); Lymph % (Auto) 11.8 % (9.0-44.0); Mean Corpuscular HGB Conc 35.1 % (32.0-36.0); Mean Corpuscular Hemoglobin 31.5 pg (27.0-34.0); Mean Corpuscular Volume 89.7 fL (80.0-100.0); Mono # (Auto) 0.4 th/mm3 (0.0-0.9); Mono % (Auto) 7.5 % (0.0-8.0); Neut # (Auto) 4.1 th/mm3 (1.8-7.7); Neut % (Auto) 76.8 % (16.0-70.0); Platelet Count 194 th/mm3 (150-450); Red Blood Count 2.54 mil/mm3 (4.50-5.90); Red Cell Distribution Width 15.4 % (11.6-17.2); White Blood Count 5.4 th/mm3 (4.0-11.0)
[2018-09-01] MEDS: Isosorbide Mononitrate 30 MG ER 24HR Tablet (Imdur) PO SCH (08:57)
[2018-09-01] MEDS: Metoprolol Tartrate 25 MG Tablet PO SCH ×2 (08:57→20:53)
[2018-09-01] MEDS: Furosemide 20 MG Tablet PO SCH (08:58)
[2018-09-01 09:01] LABS: Carbon Dioxide 28.7 meq/L (21.0-32.0); Potassium 3.5 meq/L (3.5-5.1)
[2018-09-01] MEDS ORDERED: Isosorbide Mononitrate 30 MG ER 24HR Tablet (Imdur) PO SCH (11:08)
--- NOTE | 2018-09-01 11:30 | P.PNCA ---
Subjective Interval history: Pt doing better but had some orthostasis this am, bp meds reduced. No cardiac sx. Medications and Allergies Active Medications: Active Medications Acetaminophen (Tylenol) 650 mg PO Q4H PRN PRN Reason: Temp > 100.4 Al Hydroxide/Mg Hydroxide (Milk Of Magnesia Liq) 30 ml PO Q12H PRN PRN Reason: Mild Constipation Albuterol (Ventolin Hfa Inh) 2 puff INH Q4H PRN PRN Reason: Shortness Of Breath Albuterol (Duoneb Neb (Prn)) 1 ampul NEB Q2HR NEB PRN PRN Reason: SHORTNESS OF BREATH Last Admin: 08/29/18 08:17 Dose: 1 ampul Amlodipine Besylate (Norvasc) 2.5 mg PO DAILY [facility] Last Admin: 08/29/18 10:02 Dose: 2.5 mg Aspirin (Aspirin Chew) 81 mg PO DAILY [facility] Last Admin: 09/01/18 08:53 Dose: 81 mg Atorvastatin Calcium (Lipitor) 80 mg PO DAILY [facility] Last Admin: 09/01/18 08:58 Dose: 80 mg Bisacodyl (Dulcolax Supp) 10 mg RECTAL DAILY PRN PRN Reason: SEVERE CONSITIPATION Dextrose (D50w Vial) 50 ml IV.PUSH UNSCH PRN PRN Reason: PER HYPOGLYCEMIA PROTOCOL Furosemide (Lasix) 20 mg PO DAILY [facility] Glucagon (Glucagon Inj) 1 mg OTHER PRN PRN PRN Reason: for Hypoglycemia Protocol Insulin Aspart (Novolog Insulin Correctional Sugar Inj) 0 unit SQ ACHS AND 3AM [facility]OX[facility]NE; Protocol Last Admin: 09/01/18 08:49 Dose: Not Given Isosorbide Mononitrate (Imdur) 30 mg PO DAILY [facility] Lactulose (Lactulose Liq) 30 ml PO DAILY PRN PRN Reason: SEVERE CONSITIPATION Last Admin: 08/30/18 05:46 Dose: 30 ml Melatonin (Melatonin) 5 mg PO HS PRN PRN Reason: INSOMNIA Last Admin: 08/31/18 20:48 Dose: 5 mg Metoprolol Tartrate (Lopressor) 50 mg PO BID [facility] Last Admin: 09/01/18 08:57 Dose: 50 mg Miscellaneous (Pill Splitter) 1 each OTHER UNSCH PRN PRN Reason: SEE LABEL COMMENTS Nitroglycerin (Nitrostat Sl) 0.4 mg SL Q5M PRN PRN Reason: Chest Pain Last Admin: 08/27/18 23:15 Dose: 0.4 mg Nitroglycerin (Nitro-Bid 2% Oint) 1 inch TOPICAL Q6HR [facility] Last Admin: 09/01/18 11:20 Dose: Not Given Ondansetron HCl (Zofran Inj) 4 mg IV.PUSH Q4H PRN PRN Reason: NAUSEA Pantoprazole Sodium (Protonix) 40 mg PO DAILY [facility] Last Admin: 09/01/18 08:53 Dose: 40 mg Potassium Chloride (K-Dur) 20 meq PO BID [facility] Last Admin: 09/01/18 08:53 Dose: 20 meq Sennosides (Senokot) 17.2 mg PO Q12H PRN PRN Reason: Moderate Constipation Sodium Chloride (Ns Flush) 2 ml IV.FLUSH BID [facility] Last Admin: 09/01/18 08:54 Dose: 2 ml Sodium Chloride (Ns Flush) 2 ml IV.FLUSH PRN PRN PRN Reason: FLUSH AFTER USING IV ACCESS Tamsulosin HCl (Flomax) 0.8 mg PO DAILY [facility] Last Admin: 09/01/18 08:53 Dose: 0.8 mg Ticagrelor (Brilinta) 90 mg PO BID [facility] Last Admin: 09/01/18 08:53 Dose: 90 mg Allergies Allergy/AdvReac Type Severity Reaction Status Date / Time No Known Allergies Allergy Verified 08/27/18 14:04 Home Medications Medication Instructions Recorded Confirmed Type albuterol sulfate [ProAir HFA] 2 puff INHALATION Q4-6H PRN 08/26/18 08/27/18 History amlodipine 2.5 mg PO DAILY 08/26/18 08/27/18 History aspirin 81 mg PO DAILY 08/26/18 08/27/18 History isosorbide mononitrate 60 mg PO DAILY 08/26/18 08/27/18 History metoprolol tartrate 50 mg PO BID 08/26/18 08/27/18 History nitroglycerin 0.4 mg SUBLINGUAL Q5-15M PRN 08/26/18 08/27/18 History pantoprazole 40 mg PO DAILY 08/26/18 08/27/18 History rosuvastatin 40 mg PO DAILY 08/26/18 08/27/18 History tamsulosin 0.8 mg PO DAILY 08/26/18 08/27/18 History ticagrelor [Brilinta] 90 mg PO BID 08/26/18 08/27/18 History Physical Exam Vital signs: Vital Signs 08/31/18 11:43 08/31/18 12:00 08/31/18 12:33 Temperature 97.5 F L Pulse Rate 64 70 64 Respiratory Rate 29 H 17 18 Blood Pressure 91/55 L 104/52 L 106/55 L Pulse Oximetry 97 98 98 08/31/18 13:00 08/31/18 13:33 08/31/18 15:00 Temperature 97.6 F Pulse Rate 64 62 Respiratory Rate 20 24 18 Blood Pressure 107/57 L 112/54 L 114/51 L Pulse Oximetry 99 97 08/31/18 16:00 08/31/18 20:00 09/01/18 00:00 Temperature 97.6 F 97.8 F Pulse Rate 69 79 73 Respiratory Rate 20 20 Blood Pressure 124/56 L 111/55 L Pulse Oximetry 98 94 L 09/01/18 04:00 09/01/18 08:00 Temperature 97.8 F 97.2 F L Pulse Rate 72 71 Respiratory Rate 18 18 Blood Pressure 99/51 L 113/67 Pulse Oximetry 96 92 L Intake & Output 08/31/18 09/01/18 09/01/18 18:59 06:59 18:59 Intake Total 720 / 720 350 / 350 Output Total 150 / 150 Balance 570 / 570 350 / 350 Weight 109.6 kg Intake: Oral 720 / 720 350 / 350 Output: Urine 150 / 150 Other: # Incontinent Voids 1 Date of Last Bowel Movement 08/31/18 08/31/18 # Bowel Movements 1 - Constitutional no acute distress - Routine HEENT Exam Head: Present: normocephalic ENT: Present: mucous membranes moist - Routine Neck Exam Present: supple - Routine Respiratory Exam Present: CTA bilaterally - Routine Cardiovascular Exam Present: RRR, murmur Comments: 2/6 angelica - Routine Abdominal Exam Present: soft - Routine Extremities Exam Absent: edema Results 09/01/18 07:22 09/01/18 07:22 CBC 08/31/18 09/01/18 Range/Units 04:32 07:22 WBC 6.4 5.4 (4.0-11.0) th/mm3 RBC 2.70 L 2.54 L (4.50-5.90) mil/mm3 Hgb 8.2 L 8.0 L (13.0-17.0) gm/dL Hct 24.6 L 22.8 L (39.0-51.0) % Plt Count 201 194 (150-450) th/mm3 Neut # (Auto) 5.2 4.1 (1.8-7.7) th/mm3 Lymph # (Auto) 0.5 L 0.6 L (1.0-4.8) th/mm3 [place] # (Auto) 0.5 0.4 (0.0-0.9) th/mm3 Eos # (Auto) 0.2 0.2 (0.0-0.4) th/mm3 Baso # (Auto) 0.1 0.0 (0.0-0.2) th/mm3 Comprehensive Metabolic Panel 08/31/18 08/31/18 09/01/18 Range/Units 04:32 04:32 07:22 Sodium 141 141 (136-145) meq/L Potassium 3.5 3.5 (3.5-5.1) meq/L Chloride 106 103 (98-107) meq/L Carbon Dioxide 25.5 D 28.7 (21.0-32.0) meq/L BUN 42 H 44 H (7-18) mg/dL Creatinine 2.55 H 2.53 H (0.60-1.30) mg/dL Calcium 7.7 L Cancelled 8.0 L (8.5-10.1) mg/dL Total Protein 6.0 L D Cancelled (6.4-8.2) g/dL Intake and Output 08/31/18 09/01/18 09/01/18 22:59 06:59 14:59 Intake Total 350 / 350 Balance 350 / 350 Intake: Oral 350 / 350 Other: Date of Last Bowel Movement 08/31/18 Weight 109.6 kg Assessment and Plan - Assessment (1) Non-ST elevated myocardial infarction (non-STEMI) Code(s): I21.4 - Non-ST elevation (NSTEMI) myocardial infarction Status: Acute Plan: s/p PCI, doing well, continue medical mgt. (2) Stented coronary artery Code(s): Z95.5 - Presence of coronary angioplasty implant and graft Status: Acute (3) Respiratory failure Code(s): J96.90 - Respiratory failure, unspecified, unspecified whether with hypoxia or hypercapnia Status: Acute Plan: now extubated, doing great (4) GI bleed Code(s): K92.2 - Gastrointestinal hemorrhage, unspecified Status: Acute (5) Chronic kidney disease Code(s): N18.9 - Chronic kidney disease, unspecified Status: Chronic (6) Hypertension Code(s): I10 - Essential (primary) hypertension Status: Chronic - Plan Cr. down today again slightly, continue gentle diuresis but could consider d/c lasix tomorrow - Attending Attestation Dr. Quinones will return tomorrow to resume care
--- NOTE | 2018-09-01 11:43 | P.PNFP ---
Subjective Interval history: Patient seen and examined at bedside this morning. He reports episode of hypotension, dizziness, and lightheadedness this morning. These episodes seem to be correlated with his Imdur administration. He is currently on 60 mg daily. His dose will be decreased to 30 mg daily and we will see how he tolerates this. He also is concerned about going home on his current dose of Lasix 20 mg twice daily due to his urinary frequency. He received 20 mg Lasix this morning. We will see how he tolerates a once daily dosing at 20 mg. He denied any chest pain, SOB, abdominal pain, diarrhea, nausea, vomiting. <Sondra Gordillo - 09/01/18 12:03> Results - Labs Result diagrams: 09/01/18 07:22 09/01/18 07:22 <Wu Garza - 09/01/18 13:12> Abnormal lab results 08/31/18 08/31/18 09/01/18 Range/Units 16:55 20:08 07:22 RBC 2.54 L (4.50-5.90) mil/mm3 Hgb 8.0 L (13.0-17.0) gm/dL Hct 22.8 L (39.0-51.0) % Neut % (Auto) 76.8 H (16.0-70.0) % Lymph # (Auto) 0.6 L (1.0-4.8) th/mm3 BUN (7-18) mg/dL Creatinine (0.60-1.30) mg/dL Estimated GFR (>89) mL/min POC Glucose 130 H 169 H (68-110) mg/dl Calcium (8.5-10.1) mg/dL 09/01/18 09/01/18 09/01/18 Range/Units 07:22 07:45 12:05 RBC (4.50-5.90) mil/mm3 Hgb (13.0-17.0) gm/dL Hct (39.0-51.0) % Neut % (Auto) (16.0-70.0) % Lymph # (Auto) (1.0-4.8) th/mm3 BUN 44 H (7-18) mg/dL Creatinine 2.53 H (0.60-1.30) mg/dL Estimated GFR 24 L (>89) mL/min POC Glucose 123 H 148 H (68-110) mg/dl Calcium 8.0 L (8.5-10.1) mg/dL Short CBC 09/01/18 Range/Units 07:22 WBC 5.4 (4.0-11.0) th/mm3 Hgb 8.0 L (13.0-17.0) gm/dL Hct 22.8 L (39.0-51.0) % Plt Count 194 (150-450) th/mm3 BMP 09/01/18 07:22 Sodium 141 Potassium 3.5 Chloride 103 Carbon Dioxide 28.7 BUN 44 H Creatinine 2.53 H Calcium 8.0 L <Wu Garza - 09/01/18 13:12> Abnormal lab results 08/31/18 08/31/18 08/31/18 Range/Units 12:30 16:55 20:08 RBC (4.50-5.90) mil/mm3 Hgb (13.0-17.0) gm/dL Hct (39.0-51.0) % Neut % (Auto) (16.0-70.0) % Lymph # (Auto) (1.0-4.8) th/mm3 BUN (7-18) mg/dL Creatinine (0.60-1.30) mg/dL Estimated GFR (>89) mL/min POC Glucose 145 H 130 H 169 H (68-110) mg/dl Calcium (8.5-10.1) mg/dL 09/01/18 09/01/18 09/01/18 Range/Units 07:22 07:22 07:45 RBC 2.54 L (4.50-5.90) mil/mm3 Hgb 8.0 L (13.0-17.0) gm/dL Hct 22.8 L (39.0-51.0) % Neut % (Auto) 76.8 H (16.0-70.0) % Lymph # (Auto) 0.6 L (1.0-4.8) th/mm3 BUN 44 H (7-18) mg/dL Creatinine 2.53 H (0.60-1.30) mg/dL Estimated GFR 24 L (>89) mL/min POC Glucose 123 H (68-110) mg/dl Calcium 8.0 L (8.5-10.1) mg/dL Short CBC 09/01/18 Range/Units 07:22 WBC 5.4 (4.0-11.0) th/mm3 Hgb 8.0 L (13.0-17.0) gm/dL Hct 22.8 L (39.0-51.0) % Plt Count 194 (150-450) th/mm3 BMP 09/01/18 07:22 Sodium 141 Potassium 3.5 Chloride 103 Carbon Dioxide 28.7 BUN 44 H Creatinine 2.53 H Calcium 8.0 L <Sondra Gordillo - 09/01/18 11:43> Physical Exam Vital signs: Vital Signs 08/31/18 13:33 08/31/18 15:00 08/31/18 16:00 Temperature 97.6 F Pulse Rate 62 69 Respiratory Rate 24 18 Blood Pressure 112/54 L 114/51 L Pulse Oximetry 97 08/31/18 20:00 09/01/18 00:00 09/01/18 04:00 Temperature 97.6 F 97.8 F 97.8 F Pulse Rate 79 73 72 Respiratory Rate 20 20 18 Blood Pressure 124/56 L 111/55 L 99/51 L Pulse Oximetry 98 94 L 96 09/01/18 08:00 09/01/18 12:00 Temperature 97.2 F L 97.5 F L Pulse Rate 71 69 Respiratory Rate 18 18 Blood Pressure 113/67 107/52 L Pulse Oximetry 92 L 95 Intake & Output 08/31/18 09/01/18 09/01/18 18:59 06:59 18:59 Intake Total 720 / 720 350 / 350 Output Total 150 / 150 Balance 570 / 570 350 / 350 Weight 109.6 kg Intake: Oral 720 / 720 350 / 350 Output: Urine 150 / 150 Other: # Incontinent Voids 1 Date of Last Bowel Movement 08/31/18 08/31/18 # Bowel Movements 1 <Wu Garza - 09/01/18 13:12> Vital Signs 08/31/18 12:00 08/31/18 12:33 08/31/18 13:00 Temperature 97.5 F L Pulse Rate 70 64 64 Respiratory Rate 17 18 20 Blood Pressure 104/52 L 106/55 L 107/57 L Pulse Oximetry 98 98 99 08/31/18 13:33 08/31/18 15:00 08/31/18 16:00 Temperature 97.6 F Pulse Rate 62 69 Respiratory Rate 24 18 Blood Pressure 112/54 L 114/51 L Pulse Oximetry 97 08/31/18 20:00 09/01/18 00:00 09/01/18 04:00 Temperature 97.6 F 97.8 F 97.8 F Pulse Rate 79 73 72 Respiratory Rate 20 20 18 Blood Pressure 124/56 L 111/55 L 99/51 L Pulse Oximetry 98 94 L 96 09/01/18 08:00 Temperature 97.2 F L Pulse Rate 71 Respiratory Rate 18 Blood Pressure 113/67 Pulse Oximetry 92 L Intake & Output 08/31/18 09/01/18 09/01/18 18:59 06:59 18:59 Intake Total 720 / 720 350 / 350 Output Total 150 / 150 Balance 570 / 570 350 / 350 Weight 109.6 kg Intake: Oral 720 / 720 350 / 350 Output: Urine 150 / 150 Other: # Incontinent Voids 1 Date of Last Bowel Movement 08/31/18 08/31/18 # Bowel Movements 1 <Sondra Gordillo - 09/01/18 11:43> Narrative: GENERAL: Pleasant elderly male lying in bed, no respiratory distress SKIN: No rashes. Cool and dry. HEAD: Atraumatic. Normocephalic. EYES: EOMI. No scleral icterus. No injection or drainage. ENT: Nose without drainage. MMM. CARDIOVASCULAR: Regular rate and rhythm. No murmur appreciated. No gallops or rubs. RESPIRATORY: No respiratory distress. Breath sounds equal bilaterally. ABDOMEN: Abdomen soft, non-tender, without guarding. Diastasis recti MUSCULOSKELETAL: mild bilateral LE edema NEUROLOGICAL: Awake and alert. Normal speech. Answering questions appropriately. Motor and sensory grossly within normal limits. Moving all extremities. <Sondra Gordillo - 09/01/18 12:03> Assessment and Plan - Assessment (1) Unstable angina Code(s): I20.0 - Unstable angina Status: Acute (2) Pulmonary edema Code(s): J81.1 - Chronic pulmonary edema Status: Acute (3) GI bleed Code(s): K92.2 - Gastrointestinal hemorrhage, unspecified Status: Acute (4) Hypertension Code(s): I10 - Essential (primary) hypertension Status: Chronic (5) Chronic kidney disease Code(s): N18.9 - Chronic kidney disease, unspecified Status: Chronic (6) History of CVA (cerebrovascular accident) Code(s): Z86.73 - Personal history of transient ischemic attack (TIA), and cerebral infarction without residual deficits Status: Chronic (7) GERD (gastroesophageal reflux disease) Code(s): K21.9 - Gastro-esophageal reflux disease without esophagitis Status: Chronic (8) Diabetes Code(s): E11.9 - Type 2 diabetes mellitus without complications Status: Chronic (9) Enlarged prostate Code(s): N40.0 - Benign prostatic hyperplasia without lower urinary tract symptoms Status: Chronic (10) Anemia Code(s): D64.9 - Anemia, unspecified Status: Chronic (11) Hypocalcemia Code(s): E83.51 - Hypocalcemia Status: Acute (12) Hypokalemia Code(s): E87.6 - Hypokalemia Status: Acute (13) Nutrition, metabolism, and development symptoms Code(s): R63.8 - Other symptoms and signs concerning food and fluid intake Status: Acute <Wu Garza - 09/01/18 13:12> (1) Unstable angina Code(s): I20.0 - Unstable angina Status: Acute Plan: Patient with a significant cardiac history s/p CABGx5 and recent cardiac catheterization who presented with chest pain and dyspnea. Patient has no chest pain today. -Consult Dr. Quinones, interventional cardiology -s/p stenting to his left main/left circumflex/and LAD bifurcation by cardiology on 08/28 -Continue telemetry Continue home medications: - Brilinta 90 mg BID - aspirin 81 mg - Changed Isosorbide Mononitrate from 60mg to 30 mg PO daily - nitroglycerin 0.4 mg SL Q5 min PRN - metoprolol 50 mg BID HOLD - amlodipine 2.5mg daily (2) Pulmonary edema Code(s): J81.1 - Chronic pulmonary edema Status: Acute Plan: Lasix 20 mg PO daily Monitor oxygenation and respiratory status closely Supplemental oxygen if needed, patient currently not requiring any O2 Duonebs q2h prn BiPAP if needed (3) GI bleed Code(s): K92.2 - Gastrointestinal hemorrhage, unspecified Status: Acute Plan: Patient with a 3 day history of black stools prior to admission Consult gastroenterology s/p EGD on 08/28 which showed no active bleeding Hgb stable at 8.0, will continue to monitor H/H daily Will transfuse patient if it continues to drop or he becomes symptomatic including chest pain, hypotension, dyspnea, but will be cautious due to patient' s heart failure Consider GI bleeding scan or repeat CT abd/pelvis w/o if Hgb declines further Monitor for active bleeding Continue Protonix 40 mg daily Supportive care Patient will follow up with GI for further workup as an outpatient (4) Hypertension Code(s): I10 - Essential (primary) hypertension Status: Chronic Plan: Stable with current regimen. Monitor for hypotension. Continue home metoprolol with hod parameters of BP <110/60. -Hold amlodipine (5) Chronic kidney disease Code(s): N18.9 - Chronic kidney disease, unspecified Status: Chronic Plan: Patient with known CKD. Creatinine @ 2.53 today -Continue to monitor renal function, I/Os while diuresing -Avoid contrast dye and nephrotoxic medications (6) History of CVA (cerebrovascular accident) Code(s): Z86.73 - Personal history of transient ischemic attack (TIA), and cerebral infarction without residual deficits Status: Chronic Plan: Patient has no neurological deficits from CVA in 2013. S/P bilateral carotid endarterectomy (7) GERD (gastroesophageal reflux disease) Code(s): K21.9 - Gastro-esophageal reflux disease without esophagitis Status: Chronic Plan: Continue pantoprazole (8) Diabetes Code(s): E11.9 - Type 2 diabetes mellitus without complications Status: Chronic Plan: Patient is not on home medications based on home medication lists. He reports that he is a diabetic. -low dose sliding scale insulin- has not required insulin (9) Enlarged prostate Code(s): N40.0 - Benign prostatic hyperplasia without lower urinary tract symptoms Status: Chronic Plan: -Continue tamsulosin, hold for hypotension (10) Anemia Code(s): D64.9 - Anemia, unspecified Status: Chronic Plan: patient has a history of anemia with baseline Hgb ~9.0. - Plan as above, continue to monitor (11) Hypocalcemia Code(s): E83.51 - Hypocalcemia Status: Acute Plan: Stable. -Continue to monitor (12) Hypokalemia Code(s): E87.6 - Hypokalemia Status: Acute Plan: Potassium 3.5 today due to diuretic use. - K Dur 20meq PO BID (13) Nutrition, metabolism, and development symptoms Code(s): R63.8 - Other symptoms and signs concerning food and fluid intake Status: Acute Plan: Fluids: per PO Electrolytes: continue to monitor and replete as needed Nutrition: heart healthy GI ppx: Protonix 40 mg daily DVT ppx: b/l SCDs, chemical anticoagulation contraindicated at this time, monitoring H/H, continue brilinta <Sondra Gordillo - 09/01/18 12:03> - Assessment and Plan Very pleasant 83 year old man with a h/o significant CAD s/p 5-vessel CABG in 2008, angina, CKD stage 4, HTN, DM, PAD, BPH, GERD with Franco's esophagus, questionable diagnosis of COPD who presented with a one-month history of chest pains and dyspnea as well as a few days of having black, tarry stools. The patient underwent a cardiac cath the day prior to admission which showed closure of 2 of his 5 grafts. Cardiology and gastroenterology were consulted given his angina and suspected upper GI bleed. The patient's hospitalization was complicated by flash pulmonary edema requiring BiPAP and diuresis and transfer to the ICU overnight on 08/27. The patient underwent an EGD on 08/28 which showed no active bleeding, and is s/p stenting to his left main/left circumflex/and LAD bifurcation by cardiology on 08/28. Patient extubated on . Transferred to the floor 08/31. <Sondra Gordillo - 09/01/18 12:03> Discussed Condition With: Dr. Nate Cooper <Sondra Gordillo - 09/01/18 12:03> - Attending Attestation The exam, history, and the medical decision-making described in the above note were completed with the assistance of the resident physician. I reviewed and agree with the findings presented. I attest that I had a [id number] encounter with the patient on the same day, and personally performed and documented my assessment and findings in the medical record. Still no chest pain, tired but doing well. really felt lightheaded and had headache again today and correlated with imdur. Cr stable around 2.5 still and Hgb around 8. Will decrease imdur to 30mg and lasix to 20mg daily. Will see how he does with this tomorrow AM. PT recommending home with HH, may do this if he is still doing well tomorrow and sees Dr Quinones. <Wu Garza - 09/01/18 13:12>
[2018-09-01] MEDS: Melatonin 5 MG Tablet PO PRN (20:53)
[2018-09-02] MEDS: Insulin NovoLOG Aspart Correctional Sugar Inj SQ SCH ×4 (02:07→17:27)
[2018-09-02 05:00] LABS: Baso # (Auto) 0.1 th/mm3 (0.0-0.2); Baso % (Auto) 1.1 % (0.0-2.0); Eos # (Auto) 0.2 th/mm3 (0.0-0.4); Eos % (Auto) 4.2 % (0.0-4.0); Hemoglobin 7.6 gm/dL (13.0-17.0); Lymph # (Auto) 0.8 th/mm3 (1.0-4.8); Mean Corpuscular HGB Conc 34.7 % (32.0-36.0); Mean Corpuscular Volume 89.3 fL (80.0-100.0); Mean Platelet Volume 7.7 fL (7.0-11.0); Mono # (Auto) 0.5 th/mm3 (0.0-0.9); Mono % (Auto) 8.7 % (0.0-8.0); Platelet Count 190 th/mm3 (150-450); Red Blood Count 2.46 mil/mm3 (4.50-5.90); Red Cell Distribution Width 14.9 % (11.6-17.2); White Blood Count 5.5 th/mm3 (4.0-11.0)
[2018-09-02 05:28] LABS: Calcium 7.9 mg/dL (8.5-10.1); Carbon Dioxide 27.9 meq/L (21.0-32.0); Potassium 3.9 meq/L (3.5-5.1)
[2018-09-02] MEDS ORDERED: Furosemide 20 MG Tablet PO SCH (09:00)
[2018-09-02] MEDS: Metoprolol Tartrate 25 MG Tablet PO SCH (11:01)
[2018-09-02 12:54] VITALS: RESP 18; O2SAT 97
[2018-09-02] MEDS ORDERED: Polyethylene Glycol 3350 17 GM Packet PO PRN (13:13)
--- NOTE | 2018-09-02 13:20 | P.PNFP ---
Subjective Interval history: Mr. Mcfarland had no acute events overnight. He reports that Dr. Quinones indicates that his heart is doing fine; however, there is still concern about his hemoglobin dropping below 8. Hemoglobin is 7.6 this morning. There is still concern for a GI bleed and patient needs likely colonoscopy. Dr. Quinones discussed with him possible pill endoscopy with GI. His creatinine is improved to 2.34. We have discontinued his Nitro paste as patient was becoming hypotensive after each administration. He is still on metoprolol and Imdur as per cardiology. He is getting potassium replacement because he is on Lasix and we will increase his Lasix dose to 40 mg daily. Had a bowel movement in a couple of days and has requested stool softeners and possibly MiraLAX if he has trouble going. Patient denies chest pain, shortness of breath, nausea, vomiting, diarrhea, abdominal or leg pain. He does endorse a little bit of left lower quadrant fullness. His condom cath has been discontinued as it fell off today. After discussion with Dr. Quinones today, we are comfortable allowing the patient to discharge today with close follow-up with Dr Quinones (cardiology), Dr. Velasquez (heme/onc), and will refer to Dr. Livingston (GI) for further workup for his chronic GI bleed. <Kenneth Salazar III H - 09/02/18 17:26> Results - Labs Result diagrams: 09/02/18 04:10 09/02/18 04:10 <Wu Garza - 09/02/18 19:11> Abnormal lab results 09/01/18 09/02/18 09/02/18 Range/Units 20:30 04:10 04:10 RBC 2.46 L (4.50-5.90) mil/mm3 Hgb 7.6 L (13.0-17.0) gm/dL Hct 22.0 L (39.0-51.0) % Neut % (Auto) 72.0 H (16.0-70.0) % Ballard % (Auto) 8.7 H (0.0-8.0) % Eos % (Auto) 4.2 H (0.0-4.0) % Lymph # (Auto) 0.8 L (1.0-4.8) th/mm3 BUN 45 H (7-18) mg/dL Creatinine 2.34 H (0.60-1.30) mg/dL Estimated GFR 27 L (>89) mL/min POC Glucose 168 H (68-110) mg/dl Calcium 7.9 L (8.5-10.1) mg/dL 09/02/18 09/02/18 Range/Units 08:44 12:03 RBC (4.50-5.90) mil/mm3 Hgb (13.0-17.0) gm/dL Hct (39.0-51.0) % Neut % (Auto) (16.0-70.0) % Ballard % (Auto) (0.0-8.0) % Eos % (Auto) (0.0-4.0) % Lymph # (Auto) (1.0-4.8) th/mm3 BUN (7-18) mg/dL Creatinine (0.60-1.30) mg/dL Estimated GFR (>89) mL/min POC Glucose 121 H 180 H (68-110) mg/dl Calcium (8.5-10.1) mg/dL Short CBC 09/02/18 Range/Units 04:10 WBC 5.5 (4.0-11.0) th/mm3 Hgb 7.6 L (13.0-17.0) gm/dL Hct 22.0 L (39.0-51.0) % Plt Count 190 (150-450) th/mm3 [facility] 09/02/18 04:10 Sodium 140 Potassium 3.9 Chloride 103 Carbon Dioxide 27.9 BUN 45 H Creatinine 2.34 H Calcium 7.9 L <Wu Garza - 09/02/18 19:11> Abnormal lab results 09/01/18 09/01/18 09/02/18 Range/Units 16:49 20:30 04:10 RBC 2.46 L (4.50-5.90) mil/mm3 Hgb 7.6 L (13.0-17.0) gm/dL Hct 22.0 L (39.0-51.0) % Neut % (Auto) 72.0 H (16.0-70.0) % Ballard % (Auto) 8.7 H (0.0-8.0) % Eos % (Auto) 4.2 H (0.0-4.0) % Lymph # (Auto) 0.8 L (1.0-4.8) th/mm3 BUN (7-18) mg/dL Creatinine (0.60-1.30) mg/dL Estimated GFR (>89) mL/min POC Glucose 117 H 168 H (68-110) mg/dl Calcium (8.5-10.1) mg/dL 09/02/18 09/02/18 09/02/18 Range/Units 04:10 08:44 12:03 RBC (4.50-5.90) mil/mm3 Hgb (13.0-17.0) gm/dL Hct (39.0-51.0) % Neut % (Auto) (16.0-70.0) % Ballard % (Auto) (0.0-8.0) % Eos % (Auto) (0.0-4.0) % Lymph # (Auto) (1.0-4.8) th/mm3 BUN 45 H (7-18) mg/dL Creatinine 2.34 H (0.60-1.30) mg/dL Estimated GFR 27 L (>89) mL/min POC Glucose 121 H 180 H (68-110) mg/dl Calcium 7.9 L (8.5-10.1) mg/dL Short CBC 09/02/18 Range/Units 04:10 WBC 5.5 (4.0-11.0) th/mm3 Hgb 7.6 L (13.0-17.0) gm/dL Hct 22.0 L (39.0-51.0) % Plt Count 190 (150-450) th/mm3 BMP 09/02/18 04:10 Sodium 140 Potassium 3.9 Chloride 103 Carbon Dioxide 27.9 BUN 45 H Creatinine 2.34 H Calcium 7.9 L <Blanke IIIKenneth H - 09/02/18 13:20> Physical Exam Vital signs: Vital Signs 09/01/18 20:00 09/01/18 20:31 09/02/18 00:00 Temperature 97.7 F 97.8 F Pulse Rate 73 60 Respiratory Rate 18 18 Blood Pressure 123/68 119/63 Pulse Oximetry 97 95 96 09/02/18 04:00 09/02/18 08:00 09/02/18 12:00 Temperature 97.5 F L 97.8 F 97.4 F L Pulse Rate 70 63 61 Respiratory Rate 18 17 18 Blood Pressure 122/67 123/60 117/55 L Pulse Oximetry 94 L 95 97 09/02/18 16:00 Temperature 97.5 F L Pulse Rate 64 Respiratory Rate 18 Blood Pressure 105/52 L Pulse Oximetry 97 Intake & Output 09/02/18 09/02/18 09/03/18 06:59 18:59 06:59 Intake Total 1200 / 1200 720 / 720 Output Total 1500 / 1500 Balance 1200 / 1200 -780 / -780 Weight 109.6 kg Intake: Oral 1200 / 1200 720 / 720 Output: Urine 1500 / 1500 Other: # Voids 1,000 Date of Last Bowel Movement 09/02/18 # Bowel Movements 1 <Wu Garza - 09/02/18 19:11> Vital Signs 09/01/18 16:00 09/01/18 20:00 09/01/18 20:31 Temperature 97.5 F L 97.7 F Pulse Rate 64 73 Respiratory Rate 18 18 Blood Pressure 97/47 L 123/68 Pulse Oximetry 96 97 95 09/02/18 00:00 09/02/18 04:00 09/02/18 08:00 Temperature 97.8 F 97.5 F L 97.8 F Pulse Rate 60 70 67 Respiratory Rate 18 18 17 Blood Pressure 119/63 122/67 123/60 Pulse Oximetry 96 94 L 95 09/02/18 12:00 Temperature 97.4 F L Pulse Rate 69 Respiratory Rate 18 Blood Pressure 117/55 L Pulse Oximetry 97 Intake & Output 09/01/18 09/02/18 09/02/18 18:59 06:59 18:59 Intake Total 480 / 480 1200 / 1200 Output Total 1000 / 1000 Balance -520 / -520 1200 / 1200 Weight 109.6 kg Intake: Oral 480 / 480 1200 / 1200 Output: Urine 1000 / 1000 Other: # Voids 1,000 <Martin MARYKenneth - 09/02/18 13:20> Narrative: GENERAL: Pleasant elderly male standing with a walker in his room, no respiratory distress, breathing comfortably on RA SKIN: No rashes. Cool and dry. HEAD: Atraumatic. Normocephalic. EYES: EOMI. No scleral icterus. No injection or drainage. ENT: Nose without drainage. MMM. CARDIOVASCULAR: Regular rate and rhythm. No murmur appreciated. No gallops or rubs. RESPIRATORY: No respiratory distress. Breath sounds equal bilaterally. ABDOMEN: Abdomen soft, non-tender, without guarding. Diastasis recti MUSCULOSKELETAL: mild bilateral LE edema NEUROLOGICAL: Awake and alert. Normal speech. Answering questions appropriately. Motor and sensory grossly within normal limits. Moving all extremities. <Kenneth Salazar III - 09/02/18 17:26> Assessment and Plan - Assessment (1) Unstable angina Code(s): I20.0 - Unstable angina Status: Acute (2) Pulmonary edema Code(s): J81.1 - Chronic pulmonary edema Status: Acute (3) GI bleed Code(s): K92.2 - Gastrointestinal hemorrhage, unspecified Status: Acute (4) Hypertension Code(s): I10 - Essential (primary) hypertension Status: Chronic (5) Chronic kidney disease Code(s): N18.9 - Chronic kidney disease, unspecified Status: Chronic (6) History of CVA (cerebrovascular accident) Code(s): Z86.73 - Personal history of transient ischemic attack (TIA), and cerebral infarction without residual deficits Status: Chronic (7) GERD (gastroesophageal reflux disease) Code(s): K21.9 - Gastro-esophageal reflux disease without esophagitis Status: Chronic (8) Diabetes Code(s): E11.9 - Type 2 diabetes mellitus without complications Status: Chronic (9) Enlarged prostate Code(s): N40.0 - Benign prostatic hyperplasia without lower urinary tract symptoms Status: Chronic (10) Anemia Code(s): D64.9 - Anemia, unspecified Status: Chronic (11) Hypocalcemia Code(s): E83.51 - Hypocalcemia Status: Acute (12) Hypokalemia Code(s): E87.6 - Hypokalemia Status: Acute (13) Nutrition, metabolism, and development symptoms Code(s): R63.8 - Other symptoms and signs concerning food and fluid intake Status: Acute <Wu Garza - 09/02/18 19:11> (1) Unstable angina Code(s): I20.0 - Unstable angina Status: Acute Plan: Patient with a significant cardiac history s/p CABGx5 and recent cardiac catheterization who presented with chest pain and dyspnea. Patient has no chest pain today. -Consult Dr. Quinones, interventional cardiology -s/p stenting to his left main/left circumflex/and LAD bifurcation by cardiology on 08/28 -Continue telemetry Continue home medications: - Brilinta 90 mg BID - aspirin 81 mg - Changed Isosorbide Mononitrate from 60mg to 30 mg PO daily - nitroglycerin 0.4 mg SL Q5 min PRN - discontinued Nitro-Bid q6h scheduled due to hypotension - metoprolol 50 mg BID - amlodipine 2.5mg daily (2) Pulmonary edema Code(s): J81.1 - Chronic pulmonary edema Status: Acute Plan: Change from Lasix 20 mg PO daily to 40 mg PO daily on discharge Monitor oxygenation and respiratory status closely Supplemental oxygen if needed, patient currently not requiring any O2 Duonebs q2h prn BiPAP if needed (3) GI bleed Code(s): K92.2 - Gastrointestinal hemorrhage, unspecified Status: Acute Plan: Patient with a 3 day history of black stools prior to admission Consult gastroenterology s/p EGD on 08/28 which showed no active bleeding Hgb stable at 7.6, will continue to monitor H/H daily Will transfuse patient if it continues to drop or he becomes symptomatic including chest pain, hypotension, dyspnea, but will be cautious due to patient' s heart failure Consider GI bleeding scan or repeat CT abd/pelvis w/o if Hgb declines further Continue Protonix 40 mg daily Patient will follow up with GI for further workup as an outpatient Dr Quinones spoke to Dr Velasquez, Heme/Onc, about chronic anemia and has ordered Epogen 40,000 units and IV Iron -Pt will discharge today following Epogen and one IV Iron treatment -Pt will discharge on Ferrous sulfate 325 mg PO BID (4) Hypertension Code(s): I10 - Essential (primary) hypertension Status: Chronic Plan: Stable with current regimen. Monitor for hypotension. -Continue home metoprolol with hold parameters of BP <110/60. -Continue home amlodipine with hold parameters of SBP <110/60 (5) Chronic kidney disease Code(s): N18.9 - Chronic kidney disease, unspecified Status: Chronic Plan: Patient with known CKD. Creatinine trending downward from 2.53->2.34 today -Continue to monitor renal function, I/Os while diuresing -Avoid contrast dye and nephrotoxic medications (6) History of CVA (cerebrovascular accident) Code(s): Z86.73 - Personal history of transient ischemic attack (TIA), and cerebral infarction without residual deficits Status: Chronic Plan: Patient has no neurological deficits from CVA in 2014. S/P bilateral carotid endarterectomy (7) GERD (gastroesophageal reflux disease) Code(s): K21.9 - Gastro-esophageal reflux disease without esophagitis Status: Chronic Plan: Continue pantoprazole (8) Diabetes Code(s): E11.9 - Type 2 diabetes mellitus without complications Status: Chronic Plan: Patient is not on home medications based on home medication lists. He reports that he is a diabetic. -low dose sliding scale insulin- has required 1 unit over the past 24 hours with BG at 168 this morning -Restart Metformin on discharge (9) Enlarged prostate Code(s): N40.0 - Benign prostatic hyperplasia without lower urinary tract symptoms Status: Chronic Plan: -Continue tamsulosin, hold for hypotension (10) Anemia Code(s): D64.9 - Anemia, unspecified Status: Chronic Plan: patient has a history of anemia with baseline Hgb ~9.0. - Plan as above, continue to monitor (11) Hypocalcemia Code(s): E83.51 - Hypocalcemia Status: Acute Plan: Stable. -Continue to monitor (12) Hypokalemia Code(s): E87.6 - Hypokalemia Status: Acute Plan: Potassium wnl today, but monitoring due to diuretic use. - K Dur 20meq PO BID (13) Nutrition, metabolism, and development symptoms Code(s): R63.8 - Other symptoms and signs concerning food and fluid intake Status: Acute Plan: Fluids: per PO Electrolytes: continue to monitor and replete as needed Nutrition: heart healthy GI ppx: Protonix 40 mg daily DVT ppx: b/l SCDs, chemical anticoagulation contraindicated at this time, monitoring H/H, continue brilinta Pt SDW Dr Garza <Deniseandria USMANKenneth H - 09/02/18 17:17> - Assessment and Plan Very pleasant 83 year old man with a h/o significant CAD s/p 5-vessel CABG in 2008, angina, CKD stage 4, HTN, DM, PAD, BPH, GERD with Franco's esophagus, questionable diagnosis of COPD who presented with a one-month history of chest pains and dyspnea as well as a few days of having black, tarry stools. The patient underwent a cardiac cath the day prior to admission which showed closure of 2 of his 5 grafts. Cardiology and gastroenterology were consulted given his angina and suspected upper GI bleed. The patient's hospitalization was complicated by flash pulmonary edema requiring BiPAP and diuresis and transfer to the ICU overnight on 08/27. The patient underwent an EGD on 08/28 which showed no active bleeding, and is s/p stenting to his left main/left circumflex/and LAD bifurcation by cardiology on 08/28. Patient extubated on . Transferred to the floor 08/31. <Kenneth Salazar III - 09/02/18 17:26> - Attending Attestation The exam, history, and the medical decision-making described in the above note were completed with the assistance of the resident physician. I reviewed and agree with the findings presented. I attest that I had a [id number] encounter with the patient on the same day, and personally performed and documented my assessment and findings in the medical record. Feeling much better today, headache and lightheadedness gone off nitro and 1/2 dose imdur. He still has no chest pain or shortness of breath. he is starting to have mild crackles again today and slightly more pretibial edema but requiring no oxygen. Hgb down below 8 today. 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 lasix dose seems to have settled at about 40mg daily and cardiology wrote for 40 meq of potassium daily to go with it. Leaving with outpatient cardiology follow up and GI follow up soon for colonoscopy when they can coordinate safely being off of brilinta. Can leave today if he is able to get infusions done in time. otherwise will be tomorrow. <Wu Garza - 09/02/18 19:11>
[2018-09-02] MEDS ORDERED: Iron Sucrose Inj 200 MG in Sodium Chlor 0.9% Inj 100 ML IV.SIG SCH (15:00)
[2018-09-02] MEDS: Senna/Docusate Sodium 8.6/50 MG Tablet PO SCH ×2 (15:49→15:50)
[2018-09-02 16:21] VITALS: BP 105/52; PULSE 64; TEMP 97.5
[2018-09-03] MEDS ORDERED: Furosemide 40 MG Tablet PO SCH (09:00)
--- NOTE | 2018-09-03 11:15 | P.DS ---
Date of admission: 08/27/18 16:07 Primary care physician: Nickolas Bledsoe MD Brief History from admission: 83 YO male followed by Dr Quinones from cardiology with PMHx HTN, carotid artery dz, GERD with Franco's, DM with peripheral neuropathy, BPH, PAD, angina, arthritis, CVD s/p heart cath x1 day and CKD stage 4, tinnitus, and recent COPD. Has had 1 month CP with dyspnea and sputum production. Pt had a heart cath yesterday and did not get stents yesterday due to bleeding and elevation of creatinine. Pt has 2 day Hx of black stools but no BRBPR. Pt is not taking Iron. Denies loose stools but has constipation. Has Hx of EGD for Franco's a few years ago. Pt is on Brillinta and took last dose last night. Hgb was 9.5 today. Pt has no CP when sitting. Pt feels more congested when breathing in; does not report trouble getting air out. There is radiation to left arm for some time but the frequency and duration of sxs is getting greater. Pain is not increasing. SL Nitro relieves the pain and has taken it 3x today. Denies being lightheaded except when standing up fast. His anxiety has been increased with these sxs. 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 DS: Diagnosis - Discharge Diagnosis (1) Unstable angina Status: Acute (2) Pulmonary edema Status: Acute (3) GI bleed Status: Acute (4) Hypertension Status: Chronic (5) Chronic kidney disease Status: Chronic (6) History of CVA (cerebrovascular accident) Status: Chronic (7) GERD (gastroesophageal reflux disease) Status: Chronic (8) Diabetes Status: Chronic (9) Enlarged prostate Status: Chronic (10) Anemia Status: Chronic (11) Hypocalcemia Status: Acute (12) Hypokalemia Status: Acute (13) Nutrition, metabolism, and development symptoms Status: Acute DS: Medications - Discharge Medications Prescriptions: ferrous sulfate 325 mg PO BID 30 Days #60 tab furosemide 40 mg PO DAILY #30 tab DS: Summary Hospital Course: On the night of admission (08/27), the patient went into heart failure. He was transferred to the ICU and diuresed. On August 28, GI and cardiology performed [id number] procedures while the patient was intubated. He had an EGD due to his anemia and a cardiac catheterization as planned. No source of bleeding was identified during the EGD. The patient remained intubated until the morning of August 29. He tolerated extubation well, but then required aggressive diuresis to maintain neutral fluid balance. Patient had episodes of hypotension while hospitalized. His Imdur and Nitropaste were reduced and he tolerated this well. He had no chest pain. Patient's hemoglobin remained stable during the hospitalization, but the source of his bleeding was not identified. He will be following up with GI as an outpatient for capsule endoscopy. Prior to discharge the patient did receive Epogen and a dose of IV iron. - Time Spent with Patient Total time spent providing and/or coordinating discharge services: Greater than 30 minutes - Quality: VTE Deep Vein Thrombosis/Pulmonary Embolism Present on Admission: No Exam Vital signs: Vital Signs 09/02/18 12:00 09/02/18 16:00 Temperature 97.4 F L 97.5 F L Pulse Rate 61 64 Respiratory Rate 18 18 Blood Pressure 117/55 L 105/52 L Pulse Oximetry 97 97 Intake & Output 09/02/18 09/03/18 09/03/18 18:59 06:59 18:59 Intake Total 830 / 830 Output Total 1500 / 1500 Balance -670 / -670 Intake: IV 110 / 110 Venofer Inj 200 MG In NS Inj 110 / 110 100 ML @ 110 mls/hr IV.SIG DAILY ROXANNE Rx#:[id number] Oral 720 / 720 Output: Urine 1500 / 1500 Other: Date of Last Bowel Movement 09/02/18 # Bowel Movements 1 Results Procedures completed during hospitalization: Cardiac catheterization on August [address] Young Quinones Upper endoscopy on August [address] Livingston Labs on day of discharge: Labs from last 24 hours 09/02/18 12:03 POC Glucose 180 H - Impressions ITS Impressions Chest X-Ray 08/28/18 02:01 CONCLUSION: New bilateral alveolar opacities most characteristic of pulmonary edema. This may indicate congestive heart failure or fluid overload. Discharge Plan - Discharge Disposition Patient Disposition: 01 Discharge Home - Discharge Condition Condition: Stable - Discharge Order Discharge Orders: Discharge Order (Routine); Ordered 09/02/18 Ordered By: Kenneth Salazar III - Discharge Details Anticipated Discharge Date: 09/02/18 Discharge Comment: Can discharge after getting Epogen and dose of IV Iron - Physicians Team Primary Care Provider: Nickolas Bledsoe Attending Provider: Wu Garza Other Providers: Young Quinones MD ; Aroldo Livingston MD ; Holger Durant MD
== END 2018-09-02 19:19 | disposition home or self-care (01) ==
LOC: NEPE 13:45 → NEDA 16:07 → HCIN 19:00 → N03 08-28 03:13 → N04 08-31 15:22
PROVIDERS: ADMIT Family Medicine; ATTEND Family Medicine
PROC: PANENDO (2018-08-28 09:24)